=== PATIENT | female | born 1985 | race Caucasian/White ===

== ENCOUNTER 2016-05-01 13:13 | Emergency (ER) | payer BC ==
--- NOTE | 2016-05-01 13:42 | EDM.PDOC ---
ED HPI GENERAL MEDICAL PROBLEM - General Chief Complaint: General Stated Complaint: DIZZY Time Seen by Provider: 05/01/16 13:36 Source of Information: Reports: Patient History Limitations: Reports: No limitations - History of Present Illness INITIAL COMMENTS - FREE TEXT/NARRATIVE: HISTORY AND PHYSICAL: [31-year-old female with dizziness] History of Present Illness: [Patient has history of benign positional vertigo and this does feel the same as what she said in the past she cannot remember the name of the medication that she had taken.] Review of Systems: As per history of present illness and below otherwise all systems reviewed and negative. Past medical history: As per history of present illness and as reviewed below otherwise noncontributory. Surgical history: As per history of present illness and as reviewed below otherwise noncontributory. Social history: No reported history of drug or alcohol abuse. Family history: As per history of present illness and as reviewed below otherwise noncontributory. Physical exam: Alert pleasant woman not wanting to turn her head. When asked to turn her head dizziness did increase/nausea with dizziness present HEENT: Atraumatic, normocehpalic, pupils reactive, negative for conjunctival pallor or scleral icterus, mucous membranes moist, throat clear, neck supple, nontender, trachea midline. Lungs: Clear to auscultation, breath sounds equal bilaterally, chest non tender. Heart: S1S2, regular, negative for clicks, rubs, or JVD. Extremities: Atraumatic, negative for cords or calf pain. Neurovascular unremarkable. Neuro: Awake, alert, oriented. Cranial nerves II through XII unremarkable. Cerebellum unremarkable. Motor and sensory unremarkable throughout. Exam nonfocal. Diagnostics: [] Therapeutics: [] Impression: [vertigo labrithitis] Plan: [Home Meclizine] Definitive disposition and diagnosis as appropriate pending reevaluation and review of above. Onset: gradual Duration: Day(s): Location: Reports: head Quality: Reports: Same as previous episode Severity: moderate Improves with: Reports: None Worsens with: Reports: None Associated Symptoms: Reports: no other symptoms head Pain Score (Numeric/FACES): 6 - Related Data Allergies Allergy/AdvReac Type Severity Reaction Status Date / Time cephalexin monohydrate Allergy Rash Verified 05/01/16 13:24 [From Keflex] Milk Containing Products Allergy Diarrhea Verified 05/01/16 13:24 Penicillins Allergy Diarrhea Verified 05/01/16 13:24 sulfamethoxazole Allergy Rash Verified 05/01/16 13:24 [From Bactrim] trimethoprim [From Bactrim] Allergy Rash Verified 05/01/16 13:24 Home Meds: Home Meds metFORMIN [metFORMIN XR] 500 mg PO BIDM 05/21/13 [History] Ramipril 5 mg PO DAILY 06/07/14 [History] B Complex With Vitamin C [Super B Complex-Vitamin C] 1 each PO DAILY 02/09/15 [ History] DULoxetine HCl [Cymbalta] 30 mg PO DAILY 02/09/15 [History] Niacin 500 mg PO DAILY 02/09/15 [History] LORazepam 0.5 mg PO BEDTIME 06/28/15 [History] Tamsulosin [Flomax] 0.4 mg PO BEDTIME 06/28/15 [History] Meclizine [Antivert] 25 mg PO TID #90 tablet 05/01/16 [Rx] Phentermine HCl 15 mg PO DAILY 05/01/16 [History] Past Medical History HEENT History: Reports: None Cardiovascular History: Reports: Hypertension Respiratory History: Reports: None Gastrointestinal History: Reports: None Genitourinary History: Reports: Other (see below) Other Genitourinary History: ovarian cysts 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 History: Reports: Fracture Neurological History: Reports: None Psychiatric History: Reports: Anxiety, Depression Endocrine/Metabolic History: Reports: Diabetes, type II Hematologic History: Reports: None Immunologic History: Reports: None Oncologic (Cancer) History: Reports: None Dermatologic History: Reports: None - Infectious Disease History Infectious Disease History: Reports: Chicken pox Other Infectious Disease History: childhood - Past Surgical History Head Surgeries/Procedures: Reports: None HEENT Surgical History: Reports: Tonsillectomy GI Surgical History: Reports: Cholecystectomy, Hernia repair/other Female Surgical History: Reports: D&C 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 Surgical History: Reports: Other (see below) Other 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 Surgeries/Procedures:: Right meniscus repair Social & Family History - Family History Family Medical History: Noncontributory Cardiac: Reports: CAD - Tobacco Use Smoking Status *Q: Never Smoker Second Hand Smoke Exposure: No - Alcohol Use Days Per Week of Alcohol Use: 0 - Recreational Drug Use Recreational Drug Use: No Drug Use in Last 12 Months: No ED ROS GENERAL - Review of Systems Review Of Systems: ROS reveals no pertinent complaints other than HPI. ED EXAM, GENERAL - Physical Exam Exam: See Below (see dictation) Course - Vital Signs Last Recorded V/S: Last Vital Signs Temp 37.1 C 05/01/16 13:29 Pulse 84 05/01/16 13:29 Resp 16 05/01/16 13:29 BP 132/81 05/01/16 13:29 Pulse Ox 94 L 05/01/16 13:29 Departure - Departure Time of Disposition: 13:41 Disposition: Home, Self-Care 01 Condition: good Clinical Impression: Dizziness Prescriptions: Meclizine [Antivert] 25 mg PO TID #90 tablet Forms: ED Department Discharge Additional Instructions: The following information is given to patients seen in the emergency department who are being discharged to home. This information is to outline your options for follow-up care. We provide all patients seen in our emergency department with a follow-up referral. The need for follow-up, as well as the timing and circumstances, are variable depending upon the specifics of your emergency department visit. If you don't have a primary care physician on staff, we will provide you with a referral. We always advise you to contact your personal physician following an emergency department visit to inform them of the circumstance of the visit and for follow-up with them and/or the need for any referrals to a consulting specialist. The emergency department will also refer you to a specialist when appropriate. This referral assures that you have the opportunity for followup care with a specialist. All of these measure are taken in an effort to provide you with optimal care, which includes your followup. Under all circumstances we always encourage you to contact your private physician who remains a resource for coordinating your care. When calling for followup care, please make the office aware that this follow-up is from your recent emergency room visit. If for any reason you are refused follow-up, please contact the [facility] emergency department at and asked to speak to the emergency department charge nurse. Followup with your primary care provider next week
[2016-05-01 13:54] VITALS: BP 132/81
== END 2016-05-01 13:48 | disposition home or self-care (01) ==
LOC: MW.ED 13:13
DX: R42 Dizziness and giddiness (principal); H83.09 Labyrinthitis, unspecified ear; I10 Essential (primary) hypertension; F41.9 Anxiety disorder, unspecified; F32.9 Major depressive disorder, single episode, unspecified; E11.9 Type 2 diabetes mellitus without complications; Z79.84 Long term (current) use of oral hypoglycemic drugs; Z79.899 Other long term (current) drug therapy; Z98.890 Other specified postprocedural states; Z90.49 Acquired absence of other specified parts of digestive tract; Z88.1 Allergy status to other antibiotic agents; Z88.0 Allergy status to penicillin; Z91.011 Allergy to milk products
CPT/HCPCS: 99283

== ENCOUNTER 2016-05-05 16:05 | Emergency (ER) | payer BC ==
--- NOTE | 2016-05-05 16:50 | EDM.PDOC ---
[id number] Complaint: General Stated Complaint: CHEST RAISING Time Seen by Provider: 05/05/16 18:44 Source of Information: Reports: Patient History Limitations: Reports: No limitations (A a) - History of Present Illness INITIAL COMMENTS - FREE TEXT/NARRATIVE: HISTORY AND PHYSICAL: [31-year-old female presenting with heart palpitations. She's been taking phentermine by prescription for weight loss. She's been on this medication for several days and today was the second day that she's had these occur.] History of Present Illness: [There is no chest pain] Review of Systems: As per history of present illness and below otherwise all systems reviewed and negative. Past medical history: As per history of present illness and as reviewed below otherwise noncontributory. Surgical history: As per history of present illness and as reviewed below otherwise noncontributory. Social history: No reported history of drug or alcohol abuse. Family history: As per history of present illness and as reviewed below otherwise noncontributory. Physical exam: Alert and oriented female face is quite flushed. EKG is normal sinus rhythm. Tachycardic HEENT: Atraumatic, normocehpalic, pupils reactive, negative for conjunctival pallor or scleral icterus, mucous membranes moist, throat clear, neck supple, nontender, trachea midline. Lungs: Clear to auscultation, breath sounds equal bilaterally, chest non tender. Heart: S1S2, regular, negative for clicks, rubs, or JVD. Abdomen: Soft, nondistended, nontender. Negative for masses or hepatossplenmegaly. Negative for costovertebral tenderness. Pelvis: Stable nontender. Genitourinary: Deferred. Rectal: Deferred Extremities: Atraumatic, negative for cords or calf pain. Neurovascular unremarkable. Neuro: Awake, alert, oriented. Cranial nerves II through XII unremarkable. Cerebellum unremarkable. Motor and sensory unremarkable throughout. Exam nonfocal. Diagnostics: [CBCs] Therapeutics: Xanax po[] Impression: [Heart palpitations Plan: [. Her weight loss medication have discussed with her orlistat may be the only medicine she can take that is available [id number]. Note is been written for her to be off work for the next 24 hours Instructions followup with her primary care provider Symptoms worsen overnight she needs to return immediately for reevaluation in the emergency room] Definitive disposition and diagnosis as appropriate pending reevaluation and review of above. Onset: today, sudden Duration: Hour(s): Location: Reports: chest Quality: Reports: Other Severity: mild Improves with: Reports: None Worsens with: Reports: None Associated Symptoms: Reports: no other symptoms Bilateral Chest Pain Score (Numeric/FACES): 6 - Related Data Allergies Allergy/AdvReac Type Severity Reaction Status Date / Time cephalexin monohydrate Allergy Rash Verified 05/01/16 13:24 [From Keflex] Milk Containing Products Allergy Diarrhea Verified 05/01/16 13:24 Penicillins Allergy Diarrhea Verified 05/01/16 13:24 sulfamethoxazole Allergy Rash Verified 05/01/16 13:24 [From Bactrim] trimethoprim [From Bactrim] Allergy Rash Verified 05/01/16 13:24 Home Meds: Home Meds metFORMIN [metFORMIN XR] 500 mg PO BIDM 05/21/13 [History] Ramipril 5 mg PO DAILY 06/07/14 [History] B Complex With Vitamin C [Super B Complex-Vitamin C] 1 each PO DAILY 02/09/15 [ History] DULoxetine HCl [Cymbalta] 30 mg PO DAILY 02/09/15 [History] Niacin 500 mg PO DAILY 02/09/15 [History] LORazepam 0.5 mg PO BEDTIME 06/28/15 [History] Tamsulosin [Flomax] 0.4 mg PO BEDTIME 06/28/15 [History] Meclizine [Antivert] 25 mg PO TID #90 tablet 05/01/16 [Rx] Phentermine HCl 15 mg PO DAILY 05/01/16 [History] ED ROS GENERAL - Review of Systems Review Of Systems: ROS reveals no pertinent complaints other than HPI. ED EXAM, GENERAL - Physical Exam Exam: See Below (See dictation) Course - Vital Signs Last Recorded V/S: Last Vital Signs Temp 36.7 C 05/05/16 19:46 Pulse 84 05/05/16 19:46 Resp 16 05/05/16 19:46 BP 132/73 05/05/16 19:46 Pulse Ox 96 05/05/16 19:46 - Orders/Labs/Meds Labs: Laboratory Tests 05/05/16 05/05/16 05/05/16 Range/Units 18:49 18:49 18:49 WBC 12.34 H (4.0-11.0) K/uL RBC 4.37 (4.30-5.90) M/uL Hgb 13.5 (12.0-16.0) g/dL Hct 41.2 (36.0-46.0) % MCV 94.3 (80.0-98.0) fL MCH 30.9 (27.0-32.0) pg MCHC 32.8 (31.0-37.0) g/dL RDW Std Deviation 44.6 (28.0-62.0) fl RDW Coeff of Tanmay 13 (11.0-15.0) % Plt Count 345 (150-400) K/uL MPV 9.20 (7.40-12.00) fL Neut % (Auto) 57.3 (48.0-80.0) % Lymph % (Auto) 34.1 (16.0-40.0) % [place] % (Auto) 6.8 (0.0-15.0) % Eos % (Auto) 1.6 (0.0-7.0) % Baso % (Auto) 0.2 (0.0-1.5) % Neut # 7.1 H (1.4-5.7) K/uL Lymph # 4.2 H (0.6-2.4) K/uL [place] # 0.8 (0.0-0.8) K/uL Eos # 0.2 (0.0-0.7) K/uL Baso # 0.0 (0.0-0.1) K/uL Nucleated RBC % 0.0 /100WBC Nucleated RBCs # 0 K/uL Sodium 140 (136-146) mmol/L Potassium 4.4 (3.5-5.1) mmol/L Chloride 104 (98-110) mmol/L Carbon Dioxide 25 (21-31) mmol/L BUN 10 (6.0-23.0) mg/dL Creatinine 0.9 (0.6-1.5) mg/dL Est Cr Clr Drug Dosing 76.77 mL/min Estimated GFR (MDRD) > 60.0 ml/min Glucose 121 H (60-110) mg/dL Calcium 9.3 (8.8-10.8) mg/dL Troponin I < 0.10 (0.0-0.29) NG/ML Meds: Medications Discontinued Medications Generic Name Dose Route Start Last Admin Trade Name Zachariahq PRN Reason Stop Dose Admin Alprazolam 0.5 mg 05/05/16 19:00 05/05/16 19:16 Xanax PO 05/05/16 19:01 Not Given ONETIME ONE Alprazolam 0.5 mg 05/05/16 19:10 05/05/16 19:21 Xanax PO 05/05/16 19:11 Not Given NOW STA Alprazolam 0.5 mg 05/05/16 19:20 05/05/16 19:20 Xanax PO 05/05/16 19:21 0.5 mg NOW ONE Administration Alprazolam Confirm 05/05/16 19:19 Xanax Administered 05/05/16 19:20 Dose 0.5 mg .ROUTE .STK-MED ONE Departure - Departure Time of Disposition: 19:40 Disposition: Home, Self-Care 01 Condition: good Clinical Impression: Heart palpitations Instructions: Palpitations, [id number] Referrals: PCP,None [Primary Care Provider] - Forms: ED Department Discharge Additional Instructions: Patient is feeling much improved She will be discharged to home May takes some Benadryl The following information is given to patients seen in the emergency department who are being discharged to home. This information is to outline your options for follow-up care. We provide all patients seen in our emergency department with a follow-up referral. The need for follow-up, as well as the timing and circumstances, are variable depending upon the specifics of your emergency department visit. If you don't have a primary care physician on staff, we will provide you with a referral. We always advise you to contact your personal physician following an emergency department visit to inform them of the circumstance of the visit and for follow-up with them and/or the need for any referrals to a consulting specialist. The emergency department will also refer you to a specialist when appropriate. This referral assures that you have the opportunity for followup care with a specialist. All of these measure are taken in an effort to provide you with optimal care, which includes your followup. Under all circumstances we always encourage you to contact your private physician who remains a resource for coordinating your care. When calling for followup care, please make the office aware that this follow-up is from your recent emergency room visit. If for any reason you are refused follow-up, please contact the [facility] emergency department at and asked to speak to the emergency department charge nurse. 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 History: Reports: Fracture Neurological History: Reports: None Psychiatric History: Reports: Anxiety, Depression Endocrine/Metabolic History: Reports: Diabetes, type II Hematologic History: Reports: None Immunologic History: Reports: None Oncologic (Cancer) History: Reports: None Dermatologic History: Reports: None - Infectious Disease History Infectious Disease History: Reports: Chicken pox Other Infectious Disease History: childhood - Past Surgical History Head Surgeries/Procedures: Reports: None HEENT Surgical History: Reports: Tonsillectomy GI Surgical History: Reports: Cholecystectomy, Hernia repair/other Female Surgical History: Reports: D&C 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 Surgical History: Reports: Other (see below) Other 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 Surgeries/Procedures:: Right meniscus repair Social & Family History - Family History Family Medical History: Noncontributory Cardiac: Reports: CAD - Tobacco Use Smoking Status *Q: Never Smoker Second Hand Smoke Exposure: No - Caffeine Use Caffeine Use: Reports: Coffee - Alcohol Use Days Per Week of Alcohol Use: 0 - Recreational Drug Use Recreational Drug Use: No Drug Use in Last 12 Months: No ED ROS GENERAL - Review of Systems Review Of Systems: See Below (Per history of present illness) ED EXAM, GENERAL - Physical Exam Exam: See Below (Per history of present illness) Course - Vital Signs Last Recorded V/S: Last Vital Signs Temp 36.7 C 05/05/16 19:46 Pulse 84 05/05/16 19:46 Resp 16 05/05/16 19:46 BP 132/73 05/05/16 19:46 Pulse Ox 96 05/05/16 19:46 - Orders/Labs/Meds Labs: Laboratory Tests 03/16/17 03/16/17 03/16/17 Range/Units 18:49 18:49 18:49 WBC 12.34 H (4.0-11.0) K/uL RBC 4.37 (4.30-5.90) M/uL Hgb 13.5 (12.0-16.0) g/dL Hct 41.2 (36.0-46.0) % MCV 94.3 (80.0-98.0) fL MCH 30.9 (27.0-32.0) pg MCHC 32.8 (31.0-37.0) g/dL RDW Std Deviation 44.6 (28.0-62.0) fl RDW Coeff of Tanmay 13 (11.0-15.0) % Plt Count 345 (150-400) K/uL MPV 9.20 (7.40-12.00) fL Neut % (Auto) 57.3 (48.0-80.0) % Lymph % (Auto) 34.1 (16.0-40.0) % [place] % (Auto) 6.8 (0.0-15.0) % Eos % (Auto) 1.6 (0.0-7.0) % Baso % (Auto) 0.2 (0.0-1.5) % Neut # 7.1 H (1.4-5.7) K/uL Lymph # 4.2 H (0.6-2.4) K/uL [place] # 0.8 (0.0-0.8) K/uL Eos # 0.2 (0.0-0.7) K/uL Baso # 0.0 (0.0-0.1) K/uL Nucleated RBC % 0.0 /100WBC Nucleated RBCs # 0 K/uL Sodium 140 (136-146) mmol/L Potassium 4.4 (3.5-5.1) mmol/L Chloride 104 (98-110) mmol/L Carbon Dioxide 25 (21-31) mmol/L BUN 10 (6.0-23.0) mg/dL Creatinine 0.9 (0.6-1.5) mg/dL Est Cr Clr Drug Dosing 76.77 mL/min Estimated GFR (MDRD) > 60.0 ml/min Glucose 121 H (60-110) mg/dL Calcium 9.3 (8.8-10.8) mg/dL Troponin I < 0.10 (0.0-0.29) NG/ML Meds: Medications Discontinued Medications Generic Name Dose Route Start Last Admin Trade Name Iza PRN Reason Stop Dose Admin Alprazolam 0.5 mg 05/05/16 19:00 05/05/16 19:16 Xanax PO 05/05/16 19:01 Not Given ONETIME ONE Alprazolam 0.5 mg 05/05/16 19:10 05/05/16 19:21 Xanax PO 05/05/16 19:11 Not Given NOW STA Alprazolam 0.5 mg 05/05/16 19:20 05/05/16 19:20 Xanax PO 05/05/16 19:21 0.5 mg NOW ONE Administration Alprazolam Confirm 05/05/16 19:19 Xanax Administered 05/05/16 19:20 Dose 0.5 mg .ROUTE .STK-MED ONE
[2016-05-05] MEDS: ALPRAZolam 0.25 MG Tab PO ONE (19:16)
[2016-05-05] MEDS ORDERED: ALPRAZolam 0.5 MG Tab ONE (19:19)
[2016-05-05] MEDS: ALPRAZolam 0.5 MG Tab PO ONE (19:20)
[2016-05-05] MEDS: ALPRAZolam 0.25 MG Tab PO STA (19:21)
[2016-05-05 19:25] LABS: CHLORIDE,CL 104 mmol/L (98-110); SODIUM,NA 140 mmol/L (136-146)
[2016-05-05 19:52] VITALS: BP 132/73
== END 2016-05-05 19:46 | disposition home or self-care (01) ==
LOC: MW.ED 16:05
DX: R00.2 Palpitations (principal); I10 Essential (primary) hypertension; E11.9 Type 2 diabetes mellitus without complications; Z88.6 Allergy status to analgesic agent; Z88.2 Allergy status to sulfonamides; Z88.8 Allergy status to other drugs, medicaments and biological substances; Z91.011 Allergy to milk products; Z79.899 Other long term (current) drug therapy; Z90.89 Acquired absence of other organs; Z98.890 Other specified postprocedural states
CPT/HCPCS: 36415; 80048; 84484; 85025; 93005; 99285; A9270; 99283

== ENCOUNTER → 2016-06-09 | Outpatient (CLI) | payer BC ==
--- NOTE | 2016-06-10 11:05 | CR ---
EXAMINATION: Right ankle HISTORY: Pain COMPARISON: 03/27/2016 TECHNIQUE: 2 views FINDINGS/IMPRESSION: There is no acute osseous abnormality, dislocation, or fracture identified. Deg enerative changes are noted within the tibiotalar joint and a small plantar calcaneal spur is noted. There is a well-corticated ossific density noted distal to the lateral malleolus, likely secondary to an old injury.
== END ==
LOC: MW.CHORTHO 07:51
PROVIDERS: ATTEND Physician Assistant
DX: M25.571 Pain in right ankle and joints of right foot (principal); M77.31 Calcaneal spur, right foot
CPT/HCPCS: 73600-26-RT; 73600-RT

== ENCOUNTER 2016-09-11 08:38 | Emergency (ER) | payer BC ==
--- NOTE | 2016-09-11 09:17 | EDM.PDOC ---
ED HPI GENERAL MEDICAL PROBLEM - General Chief Complaint: Abdominal Pain Stated Complaint: LOWER ABDOMINAL PAIN Time Seen by Provider: 09/11/16 09:10 Source of Information: Reports: Patient History Limitations: Reports: No Limitations - History of Present Illness INITIAL COMMENTS - FREE TEXT/NARRATIVE: History of present illness: []Patient presents with about 2 weeks of right pelvic and suprapubic pain. Patient denies any fevers but felt cold last night. No nausea, vomiting or diarrhea. Patient has a history of ovarian cysts, kidney stones and has had her gallbladder removed. Patient's wedding anniversary was 2 weeks ago and the pain began shortly after that. Review of systems: As per history of present illness and below otherwise all systems reviewed and negative. Past medical history: As per history of present illness and as reviewed below otherwise noncontributory. Surgical history: As per history of present illness and as reviewed below otherwise noncontributory. Social history: No reported history of drug or alcohol abuse. Family history: As per history of present illness and as reviewed below otherwise noncontributory. Physical exam: General: Well developed, well nourished in NAD HEENT: Atraumatic, normocephalic, pupils reactive, negative for conjunctival pallor or scleral icterus, mucous membranes moist, throat clear, neck supple, nontender, trachea midline. Lungs: Clear to auscultation, breath sounds equal bilaterally, chest nontender. Heart: S1S2, regular, negative for clicks, rubs, or JVD. Abdomen: Soft, nondistended, nontender. Negative for masses or hepatosplenomegaly. Negative for costovertebral tenderness. Pelvis: Stable nontender. Genitourinary: Pelvic exam shows copious amount of thick discharge, cervical motion tenderness is marked on exam blood patient is obese and is difficult to palpate any masses Rectal: Deferred. Extremities: Atraumatic, negative for cords or calf pain. Neurovascular unremarkable. Neuro: Awake, alert, oriented. Cranial nerves II through XII unremarkable. Cerebellum unremarkable. Motor and sensory unremarkable throughout. Exam nonfocal. Diagnostics: []Labs and urine done are negative Therapeutics: []Ceftriaxone, Zithromax, hydrated and pain meds given Impression: []PID Plan: []Follow-up with NEUROPSYCHOLOGY DIRECTOR this week Definitive disposition and diagnosis as appropriate pending reevaluation and review of above. RLQ Pain Score (Numeric/FACES): 10 - Related Data Allergies Allergy/AdvReac Type Severity Reaction Status Date / Time cephalexin monohydrate Allergy Rash Verified 09/11/16 08:51 [From Keflex] Milk Containing Products Allergy Diarrhea Verified 09/11/16 08:51 Penicillins Allergy Diarrhea Verified 09/11/16 08:51 sulfamethoxazole Allergy Rash Verified 09/11/16 08:51 [From Bactrim] trimethoprim [From Bactrim] Allergy Rash Verified 09/11/16 08:51 Home Meds: Home Meds metFORMIN [metFORMIN XR] 1,000 mg PO DAILY 05/21/13 [History] Ramipril 5 mg PO DAILY 06/07/14 [History] B Complex With Vitamin C [Super B Complex-Vitamin C] 1 each PO DAILY 02/09/15 [ History] DULoxetine HCl [Cymbalta] 30 mg PO DAILY 02/09/15 [History] LORazepam 0.5 mg PO BEDTIME 06/28/15 [History] Meclizine [Antivert] 25 mg PO TID PRN 09/11/16 [History] Past Medical History HEENT History: Reports: None Cardiovascular History: Reports: Hypertension Respiratory History: Reports: None Gastrointestinal History: Reports: None Genitourinary History: Reports: Other (See Below) Other Genitourinary History: ovarian cysts NEUROPSYCHOLOGY DIRECTOR History: Reports: None 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 History: Reports: Fracture Neurological History: Reports: None Psychiatric History: Reports: Anxiety, Depression Endocrine/Metabolic History: Reports: Diabetes, Type II Hematologic History: Reports: None Immunologic History: Reports: None Oncologic (Cancer) History: Reports: None Dermatologic History: Reports: None - Infectious Disease History Infectious Disease History: Reports: Chicken Pox Other Infectious Disease History: childhood - Past Surgical History Head Surgeries/Procedures: Reports: None HEENT Surgical History: Reports: Tonsillectomy GI Surgical History: Reports: Cholecystectomy, Hernia Repair/Other 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 Surgical History: Reports: Other (See Below) Social & Family History - Family History Family Medical History: Noncontributory Cardiac: Reports: CAD - Tobacco Use Smoking Status *Q: Never Smoker Second Hand Smoke Exposure: No - Caffeine Use Caffeine Use: Reports: Coffee - Alcohol Use Days Per Week of Alcohol Use: 0 - Recreational Drug Use Recreational Drug Use: No Drug Use in Last 12 Months: No ED ROS GENERAL - Review of Systems Review Of Systems: See Below (See history of present illness) ED EXAM, RENAL/ - Physical Exam Exam: See Below (See history of present illness) Course - Vital Signs Last Recorded V/S: Last Vital Signs Temp 36.8 C 09/11/16 08:39 Pulse 86 09/11/16 10:44 Resp 16 09/11/16 10:44 BP 148/74 H 09/11/16 10:44 Pulse Ox 96 09/11/16 10:44 - Orders/Labs/Meds Orders: Active Orders 24 hr Category Date Time Status Sodium Chloride 0.9% [Saline Flush] Med 09/11/16 10:30 Active 10 ml FLUSH ASDIRECTED PRN Sodium Chloride 0.9% [Saline Flush] Med 09/11/16 10:30 Active 2.5 ml FLUSH ASDIRECTED PRN cefTRIAXone [Rocephin] 500 mg Med 09/11/16 11:36 Ordered Sodium Chloride 0.9% [Normal Saline] 50 ml IV ONETIME Saline Lock Insert [OM.PC] Stat Oth 09/11/16 10:30 Ordered Medication Orders Ceftriaxone Sodium 500 mg/ (Sodium Chloride) 50 mls @ 100 mls/hr IV ONETIME ONE Stop: 09/11/16 12:05 Sodium Chloride (Saline Flush) 10 ml FLUSH ASDIRECTED PRN PRN Reason: Keep Vein Open Last Admin: 09/11/16 11:07 Dose: 10 ml Sodium Chloride (Saline Flush) 2.5 ml FLUSH ASDIRECTED PRN PRN Reason: Keep Vein Open Last Admin: 09/11/16 11:07 Dose: 2.5 ml Labs: Laboratory Tests 09/11/16 09/11/16 09/11/16 Range/Units 08:45 08:45 11:00 WBC 10.83 (4.0-11.0) K/uL RBC 4.40 (4.30-5.90) M/uL Hgb 14.0 (12.0-16.0) g/dL Hct 42.5 (36.0-46.0) % MCV 96.6 (80.0-98.0) fL MCH 31.8 (27.0-32.0) pg MCHC 32.9 (31.0-37.0) g/dL RDW Std Deviation 45.5 (28.0-62.0) fl RDW Coeff of Tanmay 13 (11.0-15.0) % Plt Count 351 (150-400) K/uL MPV 9.20 (7.40-12.00) fL Neut % (Auto) 61.9 (48.0-80.0) % Lymph % (Auto) 31.0 (16.0-40.0) % Porter % (Auto) 5.2 (0.0-15.0) % Eos % (Auto) 1.6 (0.0-7.0) % Baso % (Auto) 0.3 (0.0-1.5) % Neut # (Auto) 6.7 H (1.4-5.7) K/uL Lymph # (Auto) 3.4 H (0.6-2.4) K/uL Porter # (Auto) 0.6 (0.0-0.8) K/uL Eos # (Auto) 0.2 (0.0-0.7) K/uL Baso # (Auto) 0.0 (0.0-0.1) K/uL Nucleated RBC % 0.0 /100WBC Nucleated RBCs # 0 K/uL Sodium (136-146) mmol/L Potassium (3.5-5.1) mmol/L Chloride (98-110) mmol/L Carbon Dioxide (21-31) mmol/L BUN (6.0-23.0) mg/dL Creatinine (0.6-1.5) mg/dL Est Cr Clr Drug Dosing mL/min Estimated GFR (MDRD) ml/min Glucose (60-110) mg/dL Calcium (8.8-10.8) mg/dL Total Bilirubin (0.1-1.5) mg/dL AST (5-40) IU/L ALT (8-54) IU/L Alkaline Phosphatase (40-150) Total Protein (6.0-8.0) g/dL Albumin (3.5-5.0) g/dL Globulin (2.0-3.5) g/dL Albumin/Globulin Ratio (1.3-2.8) Lipase (7-80) U/L Urine Color YELLOW Urine Appearance CLEAR Urine pH 7.0 (5.0-8.0) Ur Specific Milroy 1.010 (1.001-1.035) Urine Protein NEGATIVE (NEGATIVE) mg/dL Urine Glucose (UA) NEGATIVE (NEGATIVE) mg/dL Urine Ketones NEGATIVE (NEGATIVE) mg/dL Urine Occult Blood NEGATIVE (NEGATIVE) Urine Nitrite NEGATIVE (NEGATIVE) Urine Bilirubin NEGATIVE (NEGATIVE) Urine Urobilinogen 0.2 (<2.0) EU/dL Ur Leukocyte Esterase NEGATIVE (NEGATIVE) Urine RBC NONE SEEN (0-2/HPF) Urine WBC NONE SEEN (0-5/HPF) Ur Squamous Epith Cells MANY Urine Bacteria FEW (NEGATIVE) Urine HCG, Qual NEGATIVE (NEGATIVE) 09/11/16 Range/Units 11:00 WBC (4.0-11.0) K/uL RBC (4.30-5.90) M/uL Hgb (12.0-16.0) g/dL Hct (36.0-46.0) % MCV (80.0-98.0) fL MCH (27.0-32.0) pg MCHC (31.0-37.0) g/dL RDW Std Deviation (28.0-62.0) fl RDW Coeff of Tanmay (11.0-15.0) % Plt Count (150-400) K/uL MPV (7.40-12.00) fL Neut % (Auto) (48.0-80.0) % Lymph % (Auto) (16.0-40.0) % Porter % (Auto) (0.0-15.0) % Eos % (Auto) (0.0-7.0) % Baso % (Auto) (0.0-1.5) % Neut # (Auto) (1.4-5.7) K/uL Lymph # (Auto) (0.6-2.4) K/uL Porter # (Auto) (0.0-0.8) K/uL Eos # (Auto) (0.0-0.7) K/uL Baso # (Auto) (0.0-0.1) K/uL Nucleated RBC % /100WBC Nucleated RBCs # K/uL Sodium 140 (136-146) mmol/L Potassium 4.0 (3.5-5.1) mmol/L Chloride 106 (98-110) mmol/L Carbon Dioxide 24 (21-31) mmol/L BUN 8 (6.0-23.0) mg/dL Creatinine 0.9 (0.6-1.5) mg/dL Est Cr Clr Drug Dosing 63.86 mL/min Estimated GFR (MDRD) > 60.0 ml/min Glucose 122 H (60-110) mg/dL Calcium 9.6 (8.8-10.8) mg/dL Total Bilirubin 0.6 (0.1-1.5) mg/dL AST 15 (5-40) IU/L ALT 14 (8-54) IU/L Alkaline Phosphatase 59 (40-150) Total Protein 7.9 (6.0-8.0) g/dL Albumin 4.1 (3.5-5.0) g/dL Globulin 3.8 H (2.0-3.5) g/dL Albumin/Globulin Ratio 1.1 L (1.3-2.8) Lipase 26 (7-80) U/L Urine Color Urine Appearance Urine pH (5.0-8.0) Ur Specific Mil[place] (1.001-1.035) Urine Protein (NEGATIVE) mg/dL Urine Glucose (UA) (NEGATIVE) mg/dL Urine Ketones (NEGATIVE) mg/dL Urine Occult Blood (NEGATIVE) Urine Nitrite (NEGATIVE) Urine Bilirubin (NEGATIVE) Urine Urobilinogen (<2.0) EU/dL Ur Leukocyte Esterase (NEGATIVE) Urine RBC (0-2/HPF) Urine WBC (0-5/HPF) Ur Squamous Epith Cells Urine Bacteria (NEGATIVE) Urine HCG, Qual (NEGATIVE) Meds: Medications Generic Name Dose Route Start Last Admin Trade Name Freq PRN Reason Stop Dose Admin Ceftriaxone Sodium 500 mg/ 50 mls @ 100 mls/hr 09/11/16 11:36 Sodium Chloride IV 09/11/16 12:05 ONETIME ONE Sodium Chloride 10 ml 09/11/16 10:30 09/11/16 11:07 Saline Flush FLUSH 10 ml ASDIRECTED PRN Administration Keep Vein Open Sodium Chloride 2.5 ml 09/11/16 10:30 09/11/16 11:07 Saline Flush FLUSH 2.5 ml ASDIRECTED PRN Administration Keep Vein Open Discontinued Medications Generic Name Dose Route Start Last Admin Trade Name Freq PRN Reason Stop Dose Admin Azithromycin 1,000 mg 09/11/16 11:36 Zithromax PO 09/11/16 11:37 ONETIME ONE Sodium Chloride 1,000 mls @ 999 mls/hr 09/11/16 10:30 09/11/16 11:06 Normal Saline IV 09/11/16 11:30 999 mls/hr .Bolus ONE Administration Ketorolac Tromethamine 30 mg 09/11/16 10:30 09/11/16 11:07 Toradol IVPUSH 09/11/16 10:31 30 mg ONETIME ONE Administration Departure - Departure Time of Disposition: 11:43 Disposition: Home, Self-Care 01 Condition: Good Clinical Impression: PID (acute pelvic inflammatory disease) - Discharge Information Forms: ED Department Discharge Additional Instructions: The following information is given to patients seen in the emergency department who are being discharged to home. This information is to outline your options for follow-up care. We provide all patients seen in our emergency department with a follow-up referral. The need for follow-up, as well as the timing and circumstances, are variable depending upon the specifics of your emergency department visit. If you don't have a primary care physician on staff, we will provide you with a referral. We always advise you to contact your personal physician following an emergency department visit to inform them of the circumstance of the visit and for follow-up with them and/or the need for any referrals to a consulting specialist. The emergency department will also refer you to a specialist when appropriate. This referral assures that you have the opportunity for follow-up care with a specialist. All of these measure are taken in an effort to provide you with optimal care, which includes your follow-up. Under all circumstances we always encourage you to contact your private physician who remains a resource for coordinating your care. When calling for follow-up care, please make the office aware that this follow-up is from your recent emergency room visit. If for any reason you are refused follow-up, please contact the [facility] Emergency Department at and asked to speak to the emergency department charge nurse. Theodore for pain warm packs to abdomen follow-up with SIGNAL REPAIRER this week [facility] [address] [place] [id number] - My Orders Last 24 Hours: My Active Orders 09/11/16 10:30 Sodium Chloride 0.9% [Saline Flush] 10 ml FLUSH ASDIRECTED PRN Sodium Chloride 0.9% [Saline Flush] 2.5 ml FLUSH ASDIRECTED PRN Saline Lock Insert [OM.PC] Stat 09/11/16 11:36 cefTRIAXone [Rocephin] 500 mg Sodium Chloride 0.9% [Normal Saline] 50 ml IV ONETIME - Assessment/Plan Last 24 Hours: My Active Orders 09/11/16 10:30 Sodium Chloride 0.9% [Saline Flush] 10 ml FLUSH ASDIRECTED PRN Sodium Chloride 0.9% [Saline Flush] 2.5 ml FLUSH ASDIRECTED PRN Saline Lock Insert [OM.PC] Stat 09/11/16 11:36 cefTRIAXone [Rocephin] 500 mg Sodium Chloride 0.9% [Normal Saline] 50 ml IV ONETIME
[2016-09-11] MEDS ORDERED: Sodium Chloride 0.9% 2.5 ML Syringe FLUSH PRN (10:30)
[2016-09-11] MEDS ORDERED: Ketorolac 30 MG/ML SDV IVPUSH ONE (10:30)
[2016-09-11] MEDS ORDERED: Sodium Chloride 0.9% 1,000 ML IV ONE (10:30)
[2016-09-11] MEDS ORDERED: Sodium Chloride 0.9% 10 ML Syringe FLUSH PRN (10:30)
[2016-09-11 11:27] LABS: CHLORIDE,CL 106 mmol/L (98-110); SODIUM,NA 140 mmol/L (136-146)
[2016-09-11] MEDS ORDERED: cefTRIAXone 500 MG in Sodium Chloride 0.9% 50 ML IV ONE ×2 (11:36→12:03)
[2016-09-11] MEDS ORDERED: Azithromycin 250 MG Tab PO ONE (11:36)
[2016-09-11 13:03] VITALS: BP 117/78
== END 2016-09-11 13:00 | disposition home or self-care (01) ==
LOC: MW.ED 08:38
DX: N73.9 Female pelvic inflammatory disease, unspecified (principal); I10 Essential (primary) hypertension; E11.9 Type 2 diabetes mellitus without complications; Z98.890 Other specified postprocedural states; Z90.49 Acquired absence of other specified parts of digestive tract; Z88.0 Allergy status to penicillin; Z88.2 Allergy status to sulfonamides; Z88.8 Allergy status to other drugs, medicaments and biological substances; Z91.011 Allergy to milk products; Z88.1 Allergy status to other antibiotic agents; Z79.84 Long term (current) use of oral hypoglycemic drugs; Z79.899 Other long term (current) drug therapy; Z87.442 Personal history of urinary calculi
CPT/HCPCS: 80053; 81001; 81025; 83690; 85025; 87480; 87491; 87510; 87591; 87660; 96361; 96365; 96375; 99284; A9270; J0696; J1885; J7040; J7050

== ENCOUNTER 2016-09-12 13:50 | Emergency (ER) | payer BC ==
[2016-09-12] MEDS ORDERED: Ketorolac 30 MG/ML SDV IVPUSH ONE (14:19)
--- NOTE | 2016-09-12 14:22 | EDM.PDOC ---
ED HPI GENERAL MEDICAL PROBLEM - General Chief Complaint: Abdominal Pain Stated Complaint: LOWER ABDOMINAL PAIN Time Seen by Provider: 09/12/16 14:17 Source of Information: Reports: Patient, Family History Limitations: Reports: No Limitations - History of Present Illness INITIAL COMMENTS - FREE TEXT/NARRATIVE: HISTORY AND PHYSICAL: []31-year-old female presenting with right-sided abdominal pain History of Present Illness: []Patient had pain for the last 2 weeks was seen emergency room yesterday by Dr. Oconnor and treated for PID Review of Systems: As per history of present illness and below otherwise all systems reviewed and negative. Past medical history: As per history of present illness and as reviewed below otherwise noncontributory. Surgical history: As per history of present illness and as reviewed below otherwise noncontributory. Social history: No reported history of drug or alcohol abuse. Family history: As per history of present illness and as reviewed below otherwise noncontributory. Physical exam: Alert and oriented female does not look in acute distress skin is warm and dry. Cooperative answering questions appropriately. Speaking in full sentences HEENT: Atraumatic, normocehpalic, pupils reactive, negative for conjunctival pallor or scleral icterus, mucous membranes moist, throat clear, neck supple, nontender, trachea midline. Lungs: Clear to auscultation, breath sounds equal bilaterally, chest non tender. Heart: S1S2, regular, negative for clicks, rubs, or JVD. Abdomen: Soft, obese & rounded nondistended, nontender. Negative for masses or hepatossplenmegaly. Negative for costovertebral tenderness. Pelvis: Stable nontender. Genitourinary: Deferred. Rectal: Deferred Extremities: Atraumatic, negative for cords or calf pain. Neurovascular unremarkable. Neuro: Awake, alert, oriented. Cranial nerves II through XII unremarkable. Cerebellum unremarkable. Motor and sensory unremarkable throughout. Exam nonfocal. Diagnostics: [CBC] Therapeutics: [Toradol] Impression: [Abdominal pain, PID ] Plan: []Home hydrocodone/APAP Ceftin Definitive disposition and diagnosis as appropriate pending reevaluation and review of above. Onset: Gradual Duration: Week(s): Location: Reports: Abdomen abdomen Pain Score (Numeric/FACES): 10 - Related Data Allergies Allergy/AdvReac Type Severity Reaction Status Date / Time cephalexin monohydrate Allergy Rash Verified 09/12/16 14:12 [From Keflex] Milk Containing Products Allergy Diarrhea Verified 09/12/16 14:12 Penicillins Allergy Diarrhea Verified 09/12/16 14:12 sulfamethoxazole Allergy Rash Verified 09/12/16 14:12 [From Bactrim] trimethoprim [From Bactrim] Allergy Rash Verified 09/12/16 14:12 Home Meds: Home Meds metFORMIN [metFORMIN XR] 1,000 mg PO DAILY 05/21/13 [History] Ramipril 5 mg PO DAILY 06/07/14 [History] B Complex With Vitamin C [Super B Complex-Vitamin C] 1 each PO DAILY 02/09/15 [ History] DULoxetine HCl [Cymbalta] 30 mg PO DAILY 02/09/15 [History] LORazepam 0.5 mg PO BEDTIME 06/28/15 [History] Meclizine [Antivert] 25 mg PO TID PRN 09/11/16 [History] Cefuroxime [Ceftin] 500 mg PO BID #20 tablet 09/12/16 [Rx] Past Medical History HEENT History: Reports: None Cardiovascular History: Reports: Hypertension Respiratory History: Reports: None Gastrointestinal History: Reports: None Genitourinary History: Reports: Other (See Below) Other Genitourinary History: ovarian cysts [employer]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 History: Reports: Fracture Neurological History: Reports: None Psychiatric History: Reports: Anxiety, Depression Endocrine/Metabolic History: Reports: Diabetes, Type II Hematologic History: Reports: None Immunologic History: Reports: None Oncologic (Cancer) History: Reports: None Dermatologic History: Reports: None - Infectious Disease History Infectious Disease History: Reports: Chicken Pox Other Infectious Disease History: childhood - Past Surgical History Head Surgeries/Procedures: Reports: None HEENT Surgical History: Reports: Tonsillectomy GI Surgical History: Reports: Cholecystectomy, Hernia Repair/Other 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 Surgical History: Reports: Other (See Below) Social & Family History - Family History Family Medical History: Noncontributory Cardiac: Reports: CAD - Tobacco Use Smoking Status *Q: Never Smoker Second Hand Smoke Exposure: No - Caffeine Use Caffeine Use: Reports: Coffee - Alcohol Use Days Per Week of Alcohol Use: 0 - Recreational Drug Use Recreational Drug Use: No Drug Use in Last 12 Months: No ED ROS GENERAL - Review of Systems Review Of Systems: ROS reveals no pertinent complaints other than HPI. ED EXAM, GI/ABD - Physical Exam Exam: See Below (dictation) Course - Vital Signs Last Recorded V/S: Last Vital Signs Temp 36.7 C 09/12/16 14:14 Pulse 82 09/12/16 14:40 Resp 18 09/12/16 14:40 BP 152/99 H 09/12/16 14:40 Pulse Ox 94 L 09/12/16 14:40 - Orders/Labs/Meds Meds: Medications Discontinued Medications Generic Name Dose Route Start Last Admin Trade Name Iza PRN Reason Stop Dose Admin Iopamidol 100 ml 09/12/16 15:57 09/12/16 15:58 Isovue Multipack-370 (76%) IVPUSH 09/12/16 15:58 100 ml ONETIME STA Administration Ketorolac Tromethamine 30 mg 09/12/16 14:19 09/12/16 14:46 Toradol IVPUSH 09/12/16 14:20 30 mg ONETIME ONE Administration Departure - Departure Time of Disposition: 16:43 Disposition: Home, Self-Care 01 Condition: Good Clinical Impression: PID (acute pelvic inflammatory disease) Abdominal pain Qualifiers: Abdominal location: right lower quadrant Qualified Code(s): R10.31 - Right lower quadrant pain - Discharge Information Prescriptions: Cefuroxime [Ceftin] 500 mg PO BID #20 tablet Referrals: PCP,None [Primary Care Provider] - Forms: ED Department Discharge
[2016-09-12] MEDS ORDERED: Iopamidol 755 MG/ML 500 ML Multipack Bottle IVPUSH STA (15:57)
--- NOTE | 2016-09-12 16:10 | CT ---
CT of the abdomen and pelvis with contrast. HISTORY: Pain TECHNIQUE: Axial CT images were obtained of the abdomen and pelvis following administration of Isovu e-370 in the right hand without complication. Coronal and sagittal reconstructions obtained. FINDINGS: The lung bases are clear, no pleural effusion. Mild dependent atelectasis. The liver, spleen, adrenal glands, pancreas appear unremarkable. Cholecystectomy clips are noted. No bulky retroperitoneal lymphadenopathy or abdominal ascites. The kidneys enhance and function symmetrically without evidence of obstructive uropathy. The large and small bowel are normal in caliber without evidence of obstruction. No focal pericoloni c inflammation or stranding. Mild diverticulosis without evidence of diverticulitis. The appendix ap pears normal. Urinary bladder appears normal. No bulky pelvic lymphadenopathy or free pelvic fluid. Uterus and ovaries are grossly unremarkable. No suspicious osseous abnormalities. IMPRESSION: 1. No acute findings demonstrated within the abdomen or pelvis.
[2016-09-12 16:56] VITALS: BP 152/86
== END 2016-09-12 16:56 | disposition home or self-care (01) ==
LOC: MW.ED 13:50
DX: N73.9 Female pelvic inflammatory disease, unspecified (principal); I10 Essential (primary) hypertension; F41.9 Anxiety disorder, unspecified; E11.9 Type 2 diabetes mellitus without complications; F32.9 Major depressive disorder, single episode, unspecified; Z88.0 Allergy status to penicillin; Z88.2 Allergy status to sulfonamides; Z88.8 Allergy status to other drugs, medicaments and biological substances; Z79.84 Long term (current) use of oral hypoglycemic drugs; Z79.899 Other long term (current) drug therapy; Z90.49 Acquired absence of other specified parts of digestive tract; Z98.890 Other specified postprocedural states
CPT/HCPCS: 74177; 96374; 99284; J1885; Q9967

== ENCOUNTER 2018-07-07 13:40 | Emergency (ER) | payer BC ==
[2018-07-07 14:22] LABS: CHLORIDE,CL 107 mmol/L (98-107); SODIUM,NA 140 mmol/L (136-145)
[2018-07-07] MEDS ORDERED: Ketorolac 30 MG/ML SDV IVPUSH ONE (14:38)
[2018-07-07] MEDS ORDERED: Sodium Chloride 0.9% 1,000 ML IV ONE (14:38)
--- NOTE | 2018-07-07 15:13 | EDM.PDOC ---
ED HPI GENERAL MEDICAL PROBLEM - General Chief Complaint: Chest Pain Stated Complaint: CHEST PAIN Time Seen by Provider: 07/07/18 13:41 Source of Information: Reports: Patient History Limitations: Reports: No Limitations - History of Present Illness INITIAL COMMENTS - FREE TEXT/NARRATIVE: HISTORY AND PHYSICAL: History of present illness: Patient is a 33-year-old female presents to the ED today with concern of chest pain that she describes as sharp since this morning. Patient states when she woke up she had first noticed the pain and states that it is improved now that she is in the ED. Patient states the pain is worse when she presses on her chest. Patient states she has not taken anything for her symptoms. Patient denies any other symptoms at this time. Patient denies fever, chills,shortness of breath, or cough. Denies headache, neck stiff ness, change in vision, syncope, or near syncope. Denies nausea, vomiting, abdominal pain, diarrhea, constipation, or dysuria. Has not noted any blood in urine or stool. Patient has been eating and drinking appropriately. Patient has a history of diabetes, hypertension, and depression. Review of systems: As per history of present illness and below otherwise all systems reviewed and negative. Past medical history: As per history of present illness and as reviewed below otherwise noncontributory. Surgical history: As per history of present illness and as reviewed below otherwise noncontributory. Social history: See social history for further information Family history: As per history of present illness and as reviewed below otherwise noncontributory. Physical exam: General: Patient is alert, oriented, and in no acute distress. Patient sitting comfortably on exam table. HEENT: Atraumatic, normocephalic, pupils equal and reactive bilaterally, negative for conjunctival pallor or scleral icterus, mucous membranes moist, TMs normal bilaterally, throat clear, neck supple, nontender, trachea midline. No drooling or trismus noted. No meningeal signs. No hot potato voice noted. Lungs: Clear to auscultation, breath sounds equal bilaterally. Moderate pain palpation of the mid sternum. Heart: S1S2, regular rate and rhythm without overt murmur Abdomen: Soft, nondistended, nontender. Negative for masses or hepatosplenomegaly. Negative for costovertebral tenderness. Pelvis: Stable nontender. Genitourinary: Deferred. Rectal: Deferred. Skin: Intact, warm, dry. No lesions or rashes noted. Extremities: Atraumatic, negative for cords or calf pain. Neurovascular unremarkable. Neuro: Awake, alert, oriented. Cranial nerves II through XII unremarkable. Cerebellum unremarkable. Motor and sensory unremarkable throughout. Exam nonfocal. Notes: Dr. Lam verbally involved in patient care. Symptoms are reproducible on exam and have been ongoing since this morning. Remains in no acute distress. Not associated with any other symptoms. Patient expresses resolution of symptoms while in the ED. Voices understanding and is agreeable to plan of care. Denies any further questions or concerns at this time. Diagnostics: EKG, CBC, CMP, UA, urine hCG, lipase, troponin, chest x-ray, cardiac monitoring Therapeutics: Saline, Toradol Prescription: Diclofenac Impression: Chest wall pain History of diabetes Plan: 1. Take medication as prescribed. You can also use Tylenol as directed for pain and discomfort. 2. Follow-up with her primary care provider as discussed. 3. Return to the ED as needed and as discussed. Definitive disposition and diagnosis as appropriate pending reevaluation and review of above. chest Pain Score (Numeric/FACES): 10 - Related Data Allergies Allergy/AdvReac Type Severity Reaction Status Date / Time cephalexin monohydrate Allergy Rash Verified 07/07/18 13:45 [From Keflex] Milk Containing Products Allergy Diarrhea Verified 07/07/18 13:45 Penicillins Allergy Diarrhea Verified 07/07/18 13:45 sulfamethoxazole Allergy Rash Verified 07/07/18 13:45 [From Bactrim] trimethoprim [From Bactrim] Allergy Rash Verified 07/07/18 13:45 Home Meds: Home Meds metFORMIN [metFORMIN XR] 1,000 mg PO DAILY 05/21/13 [History] Ramipril 5 mg PO DAILY 06/07/14 [History] B-Complex with Vitamin C [Super B Complex-Vitamin C] 1 each PO DAILY 02/09/15 [ History] DULoxetine HCl [Cymbalta] 30 mg PO DAILY 02/09/15 [History] LORazepam 0.5 mg PO BEDTIME 06/28/15 [History] Meclizine [Antivert] 25 mg PO TID PRN 09/11/16 [History] Cefuroxime [Ceftin] 500 mg PO BID #20 tablet 09/12/16 [Rx] Past Medical History - Past Health History Medical/Surgical History: Denies Medical/Surgical History HEENT History: Reports: None Cardiovascular History: Reports: Hypertension Respiratory History: Reports: None Gastrointestinal History: Reports: None Genitourinary History: Reports: Other (See Below) Other Genitourinary History: ovarian cysts 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 History: Reports: Fracture Neurological History: Reports: None Psychiatric History: Reports: Anxiety, Depression Endocrine/Metabolic History: Reports: Diabetes, Type II Hematologic History: Reports: None Immunologic History: Reports: None Oncologic (Cancer) History: Reports: None Dermatologic History: Reports: None - Infectious Disease History Infectious Disease History: Reports: Chicken Pox Other Infectious Disease History: childhood - Past Surgical History Head Surgeries/Procedures: Reports: None HEENT Surgical History: Reports: Tonsillectomy GI Surgical History: Reports: Cholecystectomy, Hernia Repair/Other 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 Surgical History: Reports: Other (See Below) Social & Family History - Family History Family Medical History: Noncontributory Cardiac: Reports: CAD - Tobacco Use Smoking Status *Q: Never Smoker - Caffeine Use Caffeine Use: Reports: Coffee - Recreational Drug Use Recreational Drug Use: No ED ROS GENERAL - Review of Systems Review Of Systems: ROS reveals no pertinent complaints other than HPI. ED EXAM, GENERAL - Physical Exam Exam: See Below (see dictation) Course - Vital Signs Last Recorded V/S: Last Vital Signs Temp 36.6 C 07/07/18 13:46 Pulse 78 07/07/18 13:46 Resp 20 07/07/18 13:46 BP 137/89 07/07/18 13:46 Pulse Ox 98 07/07/18 13:46 - Orders/Labs/Meds Orders: Active Orders 24 hr Category Date Time Status Cardiac Monitoring [RC] . DIRECTED Care 07/07/18 13:41 Active EKG Documentation Completion [RC] STAT Care 07/07/18 13:41 Active UA RFX LIZANDRO AND CULT IF INDIC [URIN] Stat Lab 07/07/18 14:17 Ordered Sodium Chloride 0.9% [Normal Saline] 1,000 ml Med 07/07/18 14:38 Active IV STAT Medication Orders Sodium Chloride (Normal Saline) 1,000 mls @ 999 mls/hr IV STAT ONE Stop: 07/07/18 15:38 Last Admin: 07/07/18 14:54 Dose: 999 mls/hr Labs: Laboratory Tests 07/07/18 07/07/18 07/07/18 Range/Units 13:50 13:50 13:50 WBC 11.15 H (4.0-11.0) K/uL RBC 4.15 L (4.30-5.90) M/uL Hgb 12.8 (12.0-16.0) g/dL Hct 40.2 (36.0-46.0) % MCV 96.9 (80.0-98.0) fL MCH 30.8 (27.0-32.0) pg MCHC 31.8 (31.0-37.0) g/dL RDW Std Deviation 46.1 (28.0-62.0) fl RDW Coeff of Tanmay 13 (11.0-15.0) % Plt Count 388 (150-400) K/uL MPV 9.10 (7.40-12.00) fL Neut % (Auto) 64.6 (48.0-80.0) % Lymph % (Auto) 29.8 (16.0-40.0) % Lynn % (Auto) 4.1 (0.0-15.0) % Eos % (Auto) 1.3 (0.0-7.0) % Baso % (Auto) 0.2 (0.0-1.5) % Neut # (Auto) 7.2 H (1.4-5.7) K/uL Lymph # (Auto) 3.3 H (0.6-2.4) K/uL Lynn # (Auto) 0.5 (0.0-0.8) K/uL Eos # (Auto) 0.1 (0.0-0.7) K/uL Baso # (Auto) 0.0 (0.0-0.1) K/uL Nucleated RBC % 0.0 /100WBC Nucleated RBCs # 0 K/uL Sodium 140 (136-145) mmol/L Potassium 4.2 (3.5-5.1) mmol/L Chloride 107 (98-107) mmol/L Carbon Dioxide 21.7 (21.0-32.0) mmol/L BUN 17 (7.0-18.0) mg/dL Creatinine 1.4 H (0.6-1.0) mg/dL Est Cr Clr Drug Dosing 40.29 mL/min Estimated GFR (MDRD) 42.8 ml/min Glucose 128 H (74-106) mg/dL Calcium 8.4 L (8.5-10.1) mg/dL Total Bilirubin 0.3 (0.2-1.0) mg/dL AST 9 L (15-37) IU/L ALT 14 (14-63) IU/L Alkaline Phosphatase 56 (46-116) U/L Troponin I < 0.050 (0.000-0.056) ng/mL Total Protein 7.6 (6.4-8.2) g/dL Albumin 3.2 L (3.4-5.0) g/dL Globulin 4.4 H (2.6-4.0) g/dL Albumin/Globulin Ratio 0.7 L (0.9-1.6) Lipase 139 (73-393) U/L Urine HCG, Qual NEGATIVE (NEGATIVE) Meds: Medications Generic Name Dose Route Start Last Admin Trade Name Freq PRN Reason Stop Dose Admin Sodium Chloride 1,000 mls @ 999 mls/hr 07/07/18 14:38 07/07/18 14:54 Normal Saline IV 07/07/18 15:38 999 mls/hr STAT ONE Administration Discontinued Medications Generic Name Dose Route Start Last Admin Trade Name Freq PRN Reason Stop Dose Admin Ketorolac Tromethamine 30 mg 07/07/18 14:38 07/07/18 14:54 Toradol IVPUSH 07/07/18 14:39 30 mg ONETIME ONE Administration Departure - Departure Time of Disposition: 15:27 Disposition: Home, Self-Care 01 Clinical Impression: Chest wall pain, History of diabetes mellitus Referrals: PCP,Unknown [Primary Care Provider] - Forms: ED Department Discharge Additional Instructions: The following information is given to patients seen in the emergency department who are being discharged to home. This information is to outline your options for follow-up care. We provide all patients seen in our emergency department with a follow-up referral. The need for follow-up, as well as the timing and circumstances, are variable depending upon the specifics of your emergency department visit. If you don't have a primary care physician on staff, we will provide you with a referral. We always advise you to contact your personal physician following an emergency department visit to inform them of the circumstance of the visit and for follow-up with them and/or the need for any referrals to a consulting specialist. The emergency department will also refer you to a specialist when appropriate. This referral assures that you have the opportunity for follow-up care with a specialist. All of these measure are taken in an effort to provide you with optimal care, which includes your follow-up. Under all circumstances we always encourage you to contact your private physician who remains a resource for coordinating your care. When calling for follow-up care, please make the office aware that this follow-up is from your recent emergency room visit. If for any reason you are refused follow-up, please contact the [facility] Emergency Department at and asked to speak to the emergency department charge nurse. [facility] [address] [place] [id number] [address] 1. Take medication as prescribed. You can also use Tylenol as directed for pain and discomfort. 2. Follow-up with her primary care provider as discussed. 3. Return to the ED as needed and as discussed. - My Orders Last 24 Hours: My Active Orders 07/07/18 13:41 Cardiac Monitoring [RC] . DIRECTED EKG Documentation Completion [RC] STAT 07/07/18 14:17 UA RFX LIZANDRO AND CULT IF INDIC [URIN] Stat 07/07/18 14:38 Sodium Chloride 0.9% [Normal Saline] 1,000 ml IV STAT - Assessment/Plan Last 24 Hours: My Active Orders 07/07/18 13:41 Cardiac Monitoring [RC] . DIRECTED EKG Documentation Completion [RC] STAT 07/07/18 14:17 UA RFX LIZANDRO AND CULT IF INDIC [URIN] Stat 07/07/18 14:38 Sodium Chloride 0.9% [Normal Saline] 1,000 ml IV STAT
--- NOTE | 2018-07-07 15:23 | CR ---
INDICATION: Portable AP erect chest performed at 2:40 p.m. COMPARISON: none TECHNIQUE: Shortness of breath FINDINGS: The lungs are clear. There is no evidence of pneumothorax. The heart, mediastinum and pulmonary vessels are of normal size. There is no evidence of pleural fluid. IMPRESSION: Negative chest. Dictated by Mansoor London MD @ Jul 07 2018 3:21PM Signed by Dr. Mansoor London @ Jul 07 2018 3:21PM
[2018-07-07 15:40] VITALS: BP 130/77
== END 2018-07-07 15:40 | disposition home or self-care (01) ==
LOC: MW.ED 13:40
DX: R07.89 Other chest pain (principal); E11.9 Type 2 diabetes mellitus without complications; I10 Essential (primary) hypertension; F41.9 Anxiety disorder, unspecified; F32.9 Major depressive disorder, single episode, unspecified; Z88.1 Allergy status to other antibiotic agents; Z88.0 Allergy status to penicillin; Z79.84 Long term (current) use of oral hypoglycemic drugs; Z79.899 Other long term (current) drug therapy
CPT/HCPCS: 36415; 71045; 80053; 81025; 83690; 84484; 85025; 93005; 96374; 99285; J1885; J7040

== ENCOUNTER 2019-02-24 10:26 | Emergency (ER) | payer BC ==
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
[2019-02-24] MEDS ORDERED: Meclizine 25 MG Tab PO ONE (11:12)
[2019-02-24 11:30] VITALS: BP 136/80; PULSE 82
== END 2019-02-24 11:32 | disposition home or self-care (01) ==
LOC: MW.ED 10:26
DX: S00.83XA Contusion of other part of head, initial encounter (principal); R42 Dizziness and giddiness; I10 Essential (primary) hypertension; E11.9 Type 2 diabetes mellitus without complications; F32.9 Major depressive disorder, single episode, unspecified; F41.9 Anxiety disorder, unspecified; Z79.84 Long term (current) use of oral hypoglycemic drugs; Z79.899 Other long term (current) drug therapy; Z88.0 Allergy status to penicillin; Z88.1 Allergy status to other antibiotic agents; Z88.2 Allergy status to sulfonamides; Z91.011 Allergy to milk products; V48.4XXA Person boarding or alighting a car injured in noncollision transport accident, initial encounter; Y92.410 Unspecified street and highway as the place of occurrence of the external cause
CPT/HCPCS: 99283; A9270; 99282

== ENCOUNTER 2019-08-16 21:43 | Emergency (ER) | payer BC ==
[2019-08-16] MEDS ORDERED: Sodium Chloride 0.9% 1,000 ML IV ONE ×2 (22:20→23:45)
[2019-08-16 22:36] LABS: CARBON DIOXIDE,CO2 18.5 mmol/L (21.0-32.0); POTASSIUM,K 3.9 mmol/L (3.5-5.1)
--- NOTE | 2019-08-16 23:49 | EDM.PDOC ---
ED HPI GENERAL MEDICAL PROBLEM - General Chief Complaint: Diabetic Complaint Stated Complaint: HIGH BLOOD SUGAR Time Seen by Provider: 08/16/19 23:36 - History of Present Illness INITIAL COMMENTS - FREE TEXT/NARRATIVE: History of present illness: 34-year-old female presenting with feeling of dizziness/fatigue/weakness which occurred while she was walking around a [place] outdoors. She had been outside in the sun. She does report that she has been walking daily around the [place] trying to increase her exercise and help her who has atrial fibrillation. She does appear sunburned. She does report that she has been flushed since that happened. She checked her glucose this evening and it was 278 and she was somewhat concerned that she does not take insulin and she takes metformin 1250 in the evening. No difficulty breathing or chest pain. No abdominal pain. No palpitations. Review of systems: As per history of present illness and below otherwise all systems reviewed and negative. Past medical history: As per history of present illness and as reviewed below otherwise noncontributory. Diabetes type 2 Surgical history: As per history of present illness and as reviewed below otherwise noncontributory. Social history: No reported history of drug or alcohol abuse. Family history: As per history of present illness and as reviewed below otherwise noncontributory. Physical exam: GEN: no acute distress, well appearing, appears sunburned HEENT: Atraumatic, normocephalic, mucous membranes moist, Neck: supple, nontender, trachea midline. Lungs: No respiratory distress. Heart: RRR Abdomen: Soft, nondistended, nontender. Back: nontender Extremities: Atraumatic. Neurovascularly intact. Neuro: Awake, alert, oriented. Neuro Exam nonfocal. Skin: warm, dry, no lesions , face appears flushed and sunburned Diagnostics: As, TSH, x-ray, UA Therapeutics: Normal saline x2 L MDM: Impression: [] Plan: [] Definitive disposition and diagnosis as appropriate pending reevaluation and review of above. - Related Data Allergies Allergy/AdvReac Type Severity Reaction Status Date / Time cephalexin monohydrate Allergy Rash Verified 08/16/19 22:03 [From Keflex] Milk Containing Products Allergy Diarrhea Verified 08/16/19 22:03 Penicillins Allergy Diarrhea Verified 08/16/19 22:03 sulfamethoxazole Allergy Rash Verified 08/16/19 22:03 [From Bactrim] trimethoprim [From Bactrim] Allergy Rash Verified 08/16/19 22:03 Home Meds: Home Meds metFORMIN [metFORMIN XR] 1,250 mg PO DAILY 05/21/13 [History] Ramipril 5 mg PO DAILY 06/07/14 [History] B-Complex with Vitamin C [Super B Complex-Vitamin C] 1 each PO DAILY 02/09/15 [History] Phentermine/Topiramate [Qsymia 3.75 mg-23 mg Capsule] 1 each PO DAILY 02/24/19 [History] Ciprofloxacin [Ciprofloxacin HCl] 500 mg PO BID #20 tab 08/17/19 [Rx] Past Medical History - Past Health History Medical/Surgical History: Denies Medical/Surgical History HEENT History: Reports: None Cardiovascular History: Reports: Hypertension Respiratory History: Reports: None Gastrointestinal History: Reports: None Genitourinary History: Reports: Other (See Below) Other Genitourinary History: ovarian cysts, bilateral LEPIDOPTERIST History: Reports: Other (See Below) Other LEPIDOPTERIST History: ovarian cysts, bilateral 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 History: Reports: Fracture, Other (See Below) Other 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 History: fx R ankle - no sx Neurological History: Reports: None Psychiatric History: Reports: Anxiety, Depression Endocrine/Metabolic History: Reports: Diabetes, Type II Hematologic History: Reports: None Immunologic History: Reports: None Oncologic (Cancer) History: Reports: None Dermatologic History: Reports: None - Infectious Disease History Infectious Disease History: Reports: Chicken Pox, Shingles Other Infectious Disease History: childhood - Past Surgical History Head Surgeries/Procedures: Reports: None HEENT Surgical History: Reports: Adenoidectomy, Tonsillectomy Cardiovascular Surgical History: Reports: None GI Surgical History: Reports: Cholecystectomy, Hernia Repair/Other Female Surgical History: Reports: None Endocrine Surgical History: Reports: None 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 Surgical History: Reports: None Social & Family History - Family History Family Medical History: Noncontributory Cardiac: Reports: CAD - Tobacco Use Smoking Status *Q: Never Smoker Second Hand Smoke Exposure: No - Caffeine Use Caffeine Use: Reports: Coffee, Soda - Recreational Drug Use Recreational Drug Use: No ED ROS GENERAL - Review of Systems Review Of Systems: See Below (See HPI) ED EXAM GENERAL NO PERIP PULSE - Physical Exam Exam: See Below (See HPI) Course - Vital Signs Text/Narrative:: Patient became dizzy while out in the sun and heat. Creatinine is slightly elevated as is white count. UA does appear to have some bacteria, possible UTI. She is a diabetic. Her glucoses in the 200s here. She takes metformin. Patient is elevated, however free T4 is not. Last Recorded V/S: Last Vital Signs Temp 99.4 F 08/16/19 22:57 Pulse 85 08/17/19 01:31 Resp 18 08/17/19 01:31 BP 128/76 08/17/19 01:31 Pulse Ox 97 08/17/19 01:31 - Orders/Labs/Meds Orders: Active Orders 24 hr Category Date Time Status EKG Documentation Completion [RC] STAT Care 08/16/19 23:45 Active CULTURE URINE [RM] Stat Lab 08/16/19 21:55 Received Saline Lock Insert [OM.PC] Stat Oth 08/16/19 22:20 Ordered Labs: Laboratory Tests 08/16/19 08/16/19 08/16/19 Range/Units 00:00 21:55 21:55 WBC (4.0-11.0) K/uL RBC (4.30-5.90) M/uL Hgb (12.0-16.0) g/dL Hct (36.0-46.0) % MCV (80.0-98.0) fL MCH (27.0-32.0) pg MCHC (31.0-37.0) g/dL RDW Std Deviation (28.0-62.0) fl RDW Coeff of Tanmay (11.0-15.0) % Plt Count (150-400) K/uL MPV (7.40-12.00) fL Neut % (Auto) (48.0-80.0) % Lymph % (Auto) (16.0-40.0) % Luce % (Auto) (0.0-15.0) % Eos % (Auto) (0.0-7.0) % Baso % (Auto) (0.0-1.5) % Neut # (Auto) (1.4-5.7) K/uL Lymph # (Auto) (0.6-2.4) K/uL Luce # (Auto) (0.0-0.8) K/uL Eos # (Auto) (0.0-0.7) K/uL Baso # (Auto) (0.0-0.1) K/uL Nucleated RBC % /100WBC Nucleated RBCs # K/uL Sodium (136-145) mmol/L Potassium (3.5-5.1) mmol/L Chloride (98-107) mmol/L Carbon Dioxide (21.0-32.0) mmol/L BUN (7.0-18.0) mg/dL Creatinine (0.6-1.0) mg/dL Est Cr Clr Drug Dosing mL/min Estimated GFR (MDRD) ml/min Glucose (74-106) mg/dL Calcium (8.5-10.1) mg/dL Total Bilirubin (0.2-1.0) mg/dL AST (15-37) IU/L ALT (14-63) IU/L Alkaline Phosphatase (46-116) U/L Total Protein (6.4-8.2) g/dL Albumin (3.4-5.0) g/dL Globulin (2.6-4.0) g/dL Albumin/Globulin Ratio (0.9-1.6) Free T4 1.10 (0.76-1.46) ng/dL TSH 3rd Generation (0.36-3.74) uIU/mL Urine Color YELLOW Urine Appearance SLT CLOUDY Urine pH 5.0 (5.0-8.0) Ur Specific [place] >= 1.030 (1.001-1.035) Urine Protein NEGATIVE (NEGATIVE) mg/dL Urine Glucose (UA) >=1000 (NEGATIVE) mg/dL Urine Ketones NEGATIVE (NEGATIVE) mg/dL Urine Occult Blood NEGATIVE (NEGATIVE) Urine Nitrite NEGATIVE (NEGATIVE) Urine Bilirubin NEGATIVE (NEGATIVE) Urine Urobilinogen 0.2 (<2.0) EU/dL Ur Leukocyte Esterase TRACE H (NEGATIVE) Urine RBC 0-2 (0-2/HPF) Urine WBC 2-5 (0-5/HPF) Ur Epithelial Cells FEW (NONE-FEW) Urine Bacteria 1+ H (NEGATIVE) Urine HCG, Qual NEGATIVE (NEGATIVE) 08/16/19 08/16/19 08/16/19 Range/Units 22:05 22:05 22:05 WBC 14.22 H (4.0-11.0) K/uL RBC 4.40 (4.30-5.90) M/uL Hgb 13.8 (12.0-16.0) g/dL Hct 41.1 (36.0-46.0) % MCV 93.4 (80.0-98.0) fL MCH 31.4 (27.0-32.0) pg MCHC 33.6 (31.0-37.0) g/dL RDW Std Deviation 42.9 (28.0-62.0) fl RDW Coeff of Tanmay 13 (11.0-15.0) % Plt Count 398 (150-400) K/uL MPV 8.90 (7.40-12.00) fL Neut % (Auto) 63.7 (48.0-80.0) % Lymph % (Auto) 30.0 (16.0-40.0) % Luce % (Auto) 5.1 (0.0-15.0) % Eos % (Auto) 0.9 (0.0-7.0) % Baso % (Auto) 0.3 (0.0-1.5) % Neut # (Auto) 9.1 H (1.4-5.7) K/uL Lymph # (Auto) 4.3 H (0.6-2.4) K/uL Luce # (Auto) 0.7 (0.0-0.8) K/uL Eos # (Auto) 0.1 (0.0-0.7) K/uL Baso # (Auto) 0.0 (0.0-0.1) K/uL Nucleated RBC % 0.0 /100WBC Nucleated RBCs # 0 K/uL Sodium 133 L (136-145) mmol/L Potassium 3.9 (3.5-5.1) mmol/L Chloride 98 (98-107) mmol/L Carbon Dioxide 18.5 L (21.0-32.0) mmol/L BUN 18 (7.0-18.0) mg/dL Creatinine 1.3 H (0.6-1.0) mg/dL Est Cr Clr Drug Dosing 42.97 mL/min Estimated GFR (MDRD) 46.3 ml/min Glucose 251 H (74-106) mg/dL Calcium 9.4 (8.5-10.1) mg/dL Total Bilirubin 0.2 (0.2-1.0) mg/dL AST 15 (15-37) IU/L ALT 13 L (14-63) IU/L Alkaline Phosphatase 64 (46-116) U/L Total Protein 8.1 (6.4-8.2) g/dL Albumin 3.3 L (3.4-5.0) g/dL Globulin 4.8 H (2.6-4.0) g/dL Albumin/Globulin Ratio 0.7 L (0.9-1.6) Free T4 (0.76-1.46) ng/dL TSH 3rd Generation 13.89 H (0.36-3.74) uIU/mL Urine Color Urine Appearance Urine pH (5.0-8.0) Ur Specific [place] (1.001-1.035) Urine Protein (NEGATIVE) mg/dL Urine Glucose (UA) (NEGATIVE) mg/dL Urine Ketones (NEGATIVE) mg/dL Urine Occult Blood (NEGATIVE) Urine Nitrite (NEGATIVE) Urine Bilirubin (NEGATIVE) Urine Urobilinogen (<2.0) EU/dL Ur Leukocyte Esterase (NEGATIVE) Urine RBC (0-2/HPF) Urine WBC (0-5/HPF) Ur Epithelial Cells (NONE-FEW) Urine Bacteria (NEGATIVE) Urine HCG, Qual (NEGATIVE) Meds: Medications Discontinued Medications Generic Name Dose Route Start Last Admin Trade Name Iza PRN Reason Stop Dose Admin Cephalexin 500 mg 08/17/19 01:27 08/17/19 01:43 Keflex PO 08/17/19 01:28 Not Given ONETIME ONE Ciprofloxacin 500 mg 08/17/19 01:31 08/17/19 01:43 Ciprofloxacin Hcl PO 08/17/19 01:32 500 mg ONETIME ONE Administration Sodium Chloride 1,000 mls @ 999 mls/hr 08/16/19 22:20 08/16/19 22:35 Normal Saline IV 08/16/19 23:20 999 mls/hr .Bolus ONE Administration Sodium Chloride 1,000 mls @ 999 mls/hr 08/16/19 23:45 08/17/19 00:08 Normal Saline IV 08/17/19 00:45 999 mls/hr .Bolus ONE Administration - Re-Assessments/Exams Free Text/Narrative Re-Assessment/Exam: 08/17/19 12:50 Results discussed with patient. TSH still pending. Discussed urinalysis findings. The patient does report that she was recently treated for a UTI with Macrobid, which she just completed. We discussed that she is still having bacteria in the urine and therefore will cover her with Keflex as well. First dose given. 08/17/19 01:29 The TSH was elevated, therefore free T4 was ordered, which is within reference range. Patient be given antibiotic. She will be discharged. 08/17/19 01:32 I did discuss plan to give Keflex to the patient directly with the patient prior to ordering this. I verified that she had no allergy to Keflex, which she confirmed twice. However she did report to nursing that she had a Keflex allergy, and when the nurse went to give her the medication to verify again, she did report that she did indeed have an allergy to Keflex that she had previously denied. Therefore the antibiotic will be changed to Cipro. Departure - Departure Time of Disposition: 01:29 Disposition: Home, Self-Care 01 Clinical Impression: Dizziness, Dehydration UTI (urinary tract infection) Qualifiers: Urinary tract infection type: acute cystitis - Discharge Information Prescriptions: Ciprofloxacin [Ciprofloxacin HCl] 500 mg PO BID #20 tab Instructions: Antibiotic Medicine, Adult, [id number], Urinary Tract Infection, Adult, [id number], Dehydration, Adult, [id number], Rehydration, Adult Referrals: Shanice Terrazas MD [Primary Care Provider] - 2 Days Forms: ED Department Discharge Additional Instructions: The following information is given to patients seen in the emergency department who are being discharged to home. This information is to outline your options for follow-up care. We provide all patients seen in our emergency department with a follow-up referral. The need for follow-up, as well as the timing and circumstances, are variable depending upon the specifics of your emergency department visit. If you don't have a primary care physician on staff, we will provide you with a referral. We always advise you to contact your personal physician following an emergency department visit to inform them of the circumstance of the visit and for follow-up with them and/or the need for any referrals to a consulting specialist. The emergency department will also refer you to a specialist when appropriate. This referral assures that you have the opportunity for follow-up care with a specialist. All of these measure are taken in an effort to provide you with optimal care, which includes your follow-up. Under all circumstances we always encourage you to contact your private physician who remains a resource for coordinating your care. When calling for follow-up care, please make the office aware that this follow-up is from your recent emergency room visit. If for any reason you are refused follow-up, please contact the [facility] Emergency Department at and asked to speak to the emergency department charge nurse. Sepsis Event Note (ED) - Evaluation Sepsis Screening Result: No Definite Risk - Focused Exam Vital Signs: Vital Signs Temp Pulse Resp BP Pulse Ox 08/17/19 01:31 85 18 128/76 97 08/17/19 00:14 89 20 133/78 96 08/16/19 22:57 99.4 F 95 16 127/88 96 08/16/19 22:00 99.9 F 96 18 135/90 97 - My Orders Last 24 Hours: My Active Orders 08/16/19 21:55 CULTURE URINE [RM] Stat 08/16/19 22:20 Saline Lock Insert [OM.PC] Stat 08/16/19 23:45 EKG Documentation Completion [RC] STAT - Assessment/Plan Last 24 Hours: My Active Orders 08/16/19 21:55 CULTURE URINE [RM] Stat 08/16/19 22:20 Saline Lock Insert [OM.PC] Stat 08/16/19 23:45 EKG Documentation Completion [RC] STAT
[2019-08-17] MEDS ORDERED: Cephalexin 500 MG Cap PO ONE (01:27)
[2019-08-17] MEDS ORDERED: Ciprofloxacin 500 MG Tab PO ONE (01:31)
[2019-08-17 03:19] VITALS: BP 128/84; PULSE 90
== END 2019-08-17 00:24 | disposition home or self-care (01) ==
LOC: MW.ED 21:43
DX: E86.0 Dehydration (principal); N30.00 Acute cystitis without hematuria; I10 Essential (primary) hypertension; E11.9 Type 2 diabetes mellitus without complications; Z79.84 Long term (current) use of oral hypoglycemic drugs; Z79.899 Other long term (current) drug therapy; Z88.1 Allergy status to other antibiotic agents; Z91.011 Allergy to milk products; Z88.0 Allergy status to penicillin; Z88.2 Allergy status to sulfonamides
CPT/HCPCS: 36415; 80053; 81001; 81025; 84439; 84443; 85025; 87086; 93005; 96360; 96361; 99284; A9270; J7030; 99283

== ENCOUNTER 2020-01-03 18:11 | Emergency (ER) | payer BC ==
[2020-01-03] MEDS ORDERED: Acetaminophen/HYDROcodone 325-7.5 MG Tab PO STA (19:08)
--- NOTE | 2020-01-03 19:13 | EDM.PDOC ---
ED HPI GENERAL MEDICAL PROBLEM - General Chief Complaint: Lower Extremity Injury/Pain Stated Complaint: RIGHT LEG SWOLLEN Time Seen by Provider: 01/03/20 19:01 - History of Present Illness INITIAL COMMENTS - FREE TEXT/NARRATIVE: History of present illness: [] Pleasant 34-year-old diabetic woman ports yesterday she started having swelling and pain in the anterior right thigh. And diffusely in the right anterior thigh she has swelling and pain. The pain is 8 out of 10 severe and dull. Pain is worse when she touches it or when she tries to walk. It is gradually gotten worse over the last 24 hours notes constant. The patient has no other associated signs of systemic infection or illness. The patient had an ultrasound before for similar symptoms and was negative. The patient has had shingles but unrelated to that prior ultrasound episode. When the patient had shingles in the past she got a rash early and was diagnosed on initial exam. Number embolic risk includes control pills and moderate obesity. She has negative personal and family history of thromboembolic disease. She does not smoke. She is on oral contraceptives. She has no recent immobilization surgery or trip. Review of systems: As per history of present illness and below otherwise all systems reviewed and negative. Past medical history: As per history of present illness and as reviewed below otherwise noncontributory. Surgical history: As per history of present illness and as reviewed below otherwise noncontributory. Social history: No reported history of drug or alcohol abuse. Family history: As per history of present illness and as reviewed below otherwise noncontributory. Physical exam: Constitutional - well developed, well-nourished and in no acute distress HEENT - normocephalic, no evidence of trauma - external nose and mouth normal - no mass in neck and no JVD - mucosae moist EYES - full EOM, PERRL, no icterus - no evidence of inflammation, injection, or drainage Respiratory - no respiratory distress, equal bilateral expansion 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 right lower extremity from thigh to knee is larger than the left lower extremity and there is tenderness in the medial and anterior right thigh. I do not detect any erythema or rash. Otherwise no gross deformity of long bones or joints - no other tenderness, swelling or edema Neurologic - Alert and oriented times four - CN II-XII grossly intact - motor s ensory and coordination symmetrically normal Psychiatric - appropriate mood and affect with normal thought content Hematologic - No petechiae or purpura - mucosa appropriate color and sclera not pale - normal nail bed color and refill Integument - no rash or evidence of trauma - normal turgor Diagnostics: [] Therapeutics: [] Impression: [] Plan: [] Definitive disposition and diagnosis as appropriate pending reevaluation and review of above. right thigh Pain Score (Numeric/FACES): 8 - Related Data Allergies Allergy/AdvReac Type Severity Reaction Status Date / Time cephalexin monohydrate Allergy Rash Verified 01/03/20 18:50 [From Keflex] Milk Containing Products Allergy Diarrhea Verified 01/03/20 18:50 Penicillins Allergy Diarrhea Verified 01/03/20 18:50 sulfamethoxazole Allergy Rash Verified 01/03/20 18:50 [From Bactrim] trimethoprim [From Bactrim] Allergy Rash Verified 01/03/20 18:50 Home Meds: Home Meds metFORMIN [metFORMIN XR] 1,250 mg PO DAILY 05/21/13 [History] Ramipril 5 mg PO DAILY 06/07/14 [History] Phentermine/Topiramate [Qsymia 3.75 mg-23 mg Capsule] 1 each PO DAILY 02/24/19 [History] Hydrocodone/Acetaminophen [[place] 5-325 Tablet] 1 each PO Q4HR PRN #14 tablet 01/03/20 [Rx] Past Medical History - Past Health History Medical/Surgical History: Denies Medical/Surgical History HEENT History: Reports: None Cardiovascular History: Reports: Hypertension Respiratory History: Reports: None Gastrointestinal History: Reports: None Genitourinary History: Reports: Other (See Below) Other Genitourinary History: ovarian cysts, bilateral INVENTORY MANAGER History: Reports: Other (See Below) Other INVENTORY MANAGER History: ovarian cysts, bilateral 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 History: Reports: Fracture, Other (See Below) Other 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 History: fx R ankle - no sx Neurological History: Reports: None Psychiatric History: Reports: Anxiety, Depression Endocrine/Metabolic History: Reports: Diabetes, Type II Hematologic History: Reports: None Immunologic History: Reports: None Oncologic (Cancer) History: Reports: None Dermatologic History: Reports: None - Infectious Disease History Infectious Disease History: Reports: Chicken Pox, Shingles Other Infectious Disease History: childhood - Past Surgical History Head Surgeries/Procedures: Reports: None HEENT Surgical History: Reports: Adenoidectomy, Tonsillectomy Cardiovascular Surgical History: Reports: None GI Surgical History: Reports: Cholecystectomy, Hernia Repair/Other Female Surgical History: Reports: None Endocrine Surgical History: Reports: None 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 Surgical History: Reports: None Other 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 Surgeries/Procedures:: Right meniscus repair Social & Family History - Family History Family Medical History: No Pertinent Family History Cardiac: Reports: CAD - Tobacco Use Tobacco Use Status *Q: Never Tobacco User - Caffeine Use Caffeine Use: Reports: Coffee, Soda - Recreational Drug Use Recreational Drug Use: No Review of Systems - Review of Systems Review Of Systems: Comprehensive ROS is negative, except as noted in HPI. ED EXAM, GENERAL - Physical Exam Exam: See Below Free Text/Narrative:: my physical exam is in the HPI Course - Vital Signs Last Recorded V/S: Last Vital Signs Temp 36.7 C 01/03/20 19:08 Pulse 85 01/03/20 18:51 Resp 16 01/03/20 18:51 BP 142/83 H 01/03/20 18:51 Pulse Ox 96 01/03/20 18:51 - Orders/Labs/Meds Labs: Laboratory Tests 01/03/20 01/03/20 Range/Units 19:17 19:17 WBC 9.93 (4.0-11.0) K/uL RBC 4.06 L (4.30-5.90) M/uL Hgb 12.7 (12.0-16.0) g/dL Hct 39.6 (36.0-46.0) % MCV 97.5 (80.0-98.0) fL MCH 31.3 (27.0-32.0) pg MCHC 32.1 (31.0-37.0) g/dL RDW Std Deviation 46.2 (28.0-62.0) fl RDW Coeff of Tanmay 13 (11.0-15.0) % Plt Count 372 (150-400) K/uL MPV 9.10 (7.40-12.00) fL Neut % (Auto) 50.5 (48.0-80.0) % Lymph % (Auto) 41.5 H (16.0-40.0) % [place] % (Auto) 5.9 (0.0-15.0) % Eos % (Auto) 1.9 (0.0-7.0) % Baso % (Auto) 0.2 (0.0-1.5) % Neut # (Auto) 5.0 (1.4-5.7) K/uL Lymph # (Auto) 4.1 H (0.6-2.4) K/uL [place] # (Auto) 0.6 (0.0-0.8) K/uL Eos # (Auto) 0.2 (0.0-0.7) K/uL Baso # (Auto) 0.0 (0.0-0.1) K/uL Nucleated RBC % 0.0 /100WBC Nucleated RBCs # 0 K/uL Sodium 140 (136-145) mmol/L Potassium 4.2 (3.5-5.1) mmol/L Chloride 106 (98-107) mmol/L Carbon Dioxide 22.0 (21.0-32.0) mmol/L BUN 12 (7.0-18.0) mg/dL Creatinine 1.0 (0.6-1.0) mg/dL Est Cr Clr Drug Dosing 55.86 mL/min Estimated GFR (MDRD) > 60.0 ml/min Glucose 180 H (74-106) mg/dL Calcium 9.3 (8.5-10.1) mg/dL Meds: Medications Discontinued Medications Generic Name Dose Route Start Last Admin Trade Name Iza PRN Reason Stop Dose Admin Hydrocodone Bitart/Acetaminophen 1 tab 01/03/20 19:08 01/03/20 19:15 [place] 325-7.5 Mg PO 01/03/20 19:09 1 tab STAT STA Administration Departure - Departure Time of Disposition: 21:12 Disposition: Home, Self-Care 01 Condition: Good Clinical Impression: Thigh pain, History of shingles - Discharge Information Instructions: Pain Medicine Instructions, [id number] Referrals: PCP,None [Primary Care Provider] - Forms: ED Department Discharge Additional Instructions: If you develop a rash or pimples in the area you need to let your doctor or clinic know immediately so we can start antiviral treatment for shingles. Otherwise favored as though you may have a muscle strain or musculoskeletal pain. If your leg swells more and the pain continues then after few days the ultrasound can be repeated to make sure there was not a very small blood clot that was too small to detect today. [facility] - Primary Care [address] [place] [address] [facility] [address] [place] [address] The following information is given to patients seen in the emergency department who are being discharged to home. This information is to outline your options for follow-up care. We provide all patients seen in our emergency department with a follow-up referral. The need for follow-up, as well as the timing and circumstances, are variable depending upon the specifics of your emergency department visit. If you don't have a primary care physician on staff, we will provide you with a referral. We always advise you to contact your personal physician following an emergency department visit to inform them of the circumstance of the visit and for follow-up with them and/or the need for any referrals to a consulting specialist. The emergency department will also refer you to a specialist when appropriate. This referral assures that you have the opportunity for follow-up care with a specialist. All of these measure are taken in an effort to provide you with optimal care, which includes your follow-up. Under all circumstances we always encourage you to contact your private physician who remains a resource for coordinating your care. When calling for follow-up care, please make the office aware that this follow-up is from your recent emergency room visit. If for any reason you are refused follow-up, please contact the [facility] Emergency Department at and asked to speak to the emergency department charge nurse. Sepsis Event Note (ED) - Evaluation Sepsis Screening Result: No Definite Risk - Focused Exam Vital Signs: Vital Signs Temp Pulse Resp BP Pulse Ox 01/03/20 19:08 36.7 C 01/03/20 18:51 85 16 142/83 H 96
[2020-01-03 19:52] LABS: CHLORIDE,CL 106 mmol/L (98-107); GLUCOSE RANDOM 180 mg/dL (74-106); POTASSIUM,K 4.2 mmol/L (3.5-5.1); SODIUM,NA 140 mmol/L (136-145)
[2020-01-03 20:04] LABS: BLOOD UREA NITROGEN,BUN 12 mg/dL (7.0-18.0)
--- NOTE | 2020-01-03 21:06 | US ---
INDICATION: pain rt thigh, swelling RIGHT LOWER EXTREMITY VENOUS DUPLEX ULTRASOUND TECHNIQUE: Duplex sonography using grayscale imaging as well as color and spectral Doppler interrogation was performed over the right lower extremity with attention to the deep venous system. FINDINGS: The right common femoral, femoral, deep femoral, popliteal, and posterior tibial veins show normal compressibility, color Doppler flow, and augmentation response. IMPRESSION: No evidence of deep venous thrombosis in the right lower extremity. JAROD MITCHELL MD [employer] Dictated by: Huy Mitchell MD @ 01/03/2020 21:05:16 (Electronically Signed)
[2020-01-03 21:25] VITALS: BP 135/74; PULSE 77
== END 2020-01-03 21:27 | disposition home or self-care (01) ==
LOC: MW.ED 18:11
DX: M79.651 Pain in right thigh (principal); I10 Essential (primary) hypertension; E11.9 Type 2 diabetes mellitus without complications; Z88.1 Allergy status to other antibiotic agents; Z88.0 Allergy status to penicillin; Z88.2 Allergy status to sulfonamides; Z91.011 Allergy to milk products; Z79.899 Other long term (current) drug therapy
CPT/HCPCS: 36415; 80048; 85025; 93971; 99284; A9270; 99283

== ENCOUNTER 2020-02-09 10:43 | Emergency (ER) | payer BC ==
--- NOTE | 2020-02-09 10:53 | PCM.SN.2 ---
- Free Text/Narrative Note: KG done at 10:45 a.m. and read at 10:51 AM sinus rhythm heart rate 92 MI 136 QT 440 axis XX 3 borderline T abnormality compared to 08/17/2019 no change impression no acute injury
[2020-02-09] MEDS ORDERED: Sodium Chloride 0.9% 1,000 ML IV ONE (10:57)
--- NOTE | 2020-02-09 11:12 | EDM.PDOC ---
ED HPI GENERAL MEDICAL PROBLEM - General Chief Complaint: Chest Pain Stated Complaint: HIGH BLOOD PRESURE Time Seen by Provider: 02/09/20 10:51 Source of Information: Reports: Patient History Limitations: Reports: No Limitations - History of Present Illness INITIAL COMMENTS - FREE TEXT/NARRATIVE: HISTORY AND PHYSICAL: History of present illness: Patient is a 34-year-old female who presents emergency room today with concern of dizziness and feeling light-headed that started last night. Patient states that her symptoms are worse when she stands up and she feels like her heart is racing at times. Patient states that she was recently increased on her dose of phentermine approximately 2 weeks ago. Patient states in the past she has had similar issues with phentermine when adjusting doses and states her symptoms today do feel similar to when her issues of phentermine were prior. Patient states she came to the emergency room because she was concerned with her heart rate being fast and the sensation of being lightheaded. Patient denies any syncope. Patient denies any head injury or trauma. Patient states she has a history of type 2 diabetes on oral medications but denies any other health history. Patient denies fever, chills, chest pain, shortness of breath, or cough. Denies headache, neck stiff ness, change in vision, syncope. Denies nausea, vomiting, abdominal pain, diarrhea, constipation, or dysuria. Has not noted any blood in urine or stool. Patient has been eating and drinking appropriately. Review of systems: As per history of present illness and below otherwise all systems reviewed and negative. Past medical history: As per history of present illness and as reviewed below otherwise noncontributory. Surgical history: As per history of present illness and as reviewed below otherwise noncontributory. Social history: See social history for further information Family history: As per history of present illness and as reviewed below otherwise noncontributory. Physical exam: General: Patient is alert, oriented, and in no acute distress. Patient laying comfortably on exam table. Vitals stable and reviewed by me. HEENT: Atraumatic, normocephalic, pupils equal and reactive bilaterally, negative for conjunctival pallor or scleral icterus, mucous membranes moist, TMs normal bilaterally, throat clear, neck supple, nontender, trachea midline. No drooling or trismus noted. No meningeal signs. No hot potato voice noted. Lungs: Clear to auscultation, breath sounds equal bilaterally, chest nontender. Heart: S1S2, regular rate and rhythm without overt murmur Abdomen: Soft, nondistended, nontender. Negative for masses or hepatosplenomegaly. Negative for costovertebral tenderness. Pelvis: Stable nontender. Genitourinary: Deferred. Rectal: Deferred. Skin: Intact, warm, dry. No lesions or rashes noted. Extremities: Atraumatic, negative for cords or calf pain. Neurovascular unremarkable. Neuro: Awake, alert, oriented. Cranial nerves II through XII unremarkable. Cerebellum unremarkable. Motor and sensory unremarkable throughout. Exam nonfocal. Notes: Upon reevaluation, patient expresses improvement of symptoms today in the ED. Strict return precautions were thoroughly discussed with patient. Discussed importance for follow-up with a primary care provider and for potential reevaluation of phentermine dosing. Voices understanding and is agreeable to plan of care. Denies any further questions or concerns at this time. Diagnostics: EKG, CBC, CMP, UA, Serum hcg, orthostatic vitals, Trop, CXR Therapeutics: NS Prescription: Fluconazole Impression: Dizziness, improved Candidal vaginitis Plan: 1. Encourage small frequent sips of fluid to prevent dehydration. 2. Follow-up with your primary care provider as discussed. Return to the ED as needed and as discussed. 3. Take medication as prescribed. Definitive disposition and diagnosis as appropriate pending reevaluation and review of above. Chest Pain Score (Numeric/FACES): 3 - Related Data Allergies Allergy/AdvReac Type Severity Reaction Status Date / Time cephalexin monohydrate Allergy Rash Verified 02/09/20 10:48 [From Keflex] Milk Containing Products Allergy Diarrhea Verified 02/09/20 10:48 Penicillins Allergy Diarrhea Verified 02/09/20 10:48 sulfamethoxazole Allergy Rash Verified 02/09/20 10:48 [From Bactrim] trimethoprim [From Bactrim] Allergy Rash Verified 02/09/20 10:48 Home Meds: Home Meds metFORMIN [metFORMIN XR] 1,250 mg PO DAILY 05/21/13 [History] Phentermine/Topiramate [Qsymia 3.75 mg-23 mg Capsule] 1 each PO DAILY 02/24/19 [History] Fluconazole 150 mg PO DAILY #1 tablet 02/09/20 [Rx] Past Medical History - Past Health History Medical/Surgical History: Denies Medical/Surgical History HEENT History: Reports: None Cardiovascular History: Reports: Hypertension Respiratory History: Reports: None Gastrointestinal History: Reports: None Genitourinary History: Reports: Other (See Below) Other Genitourinary History: ovarian cysts, bilateral UNIVERSITY ADMINISTRATOR History: Reports: Other (See Below) Other UNIVERSITY ADMINISTRATOR History: ovarian cysts, bilateral 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 History: Reports: Fracture, Other (See Below) Other 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 History: fx R ankle - no sx Neurological History: Reports: None Psychiatric History: Reports: Anxiety, Depression Endocrine/Metabolic History: Reports: Diabetes, Type II Hematologic History: Reports: None Immunologic History: Reports: None Oncologic (Cancer) History: Reports: None Dermatologic History: Reports: None - Infectious Disease History Infectious Disease History: Reports: Chicken Pox, Shingles Other Infectious Disease History: childhood - Past Surgical History Head Surgeries/Procedures: Reports: None HEENT Surgical History: Reports: Adenoidectomy, Tonsillectomy Cardiovascular Surgical History: Reports: None GI Surgical History: Reports: Cholecystectomy, Hernia Repair/Other Female Surgical History: Reports: None Endocrine Surgical History: Reports: None 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 Surgical History: Reports: None Other 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 Surgeries/Procedures:: Right meniscus repair Social & Family History - Family History Family Medical History: No Pertinent Family History Cardiac: Reports: CAD - Caffeine Use Caffeine Use: Reports: Coffee, Soda ED ROS GENERAL - Review of Systems Review Of Systems: Comprehensive ROS is negative, except as noted in HPI. ED EXAM, GENERAL - Physical Exam Exam: See Below (see dictation) Course - Vital Signs Last Recorded V/S: Last Vital Signs Temp 98.4 F 02/09/20 10:50 Pulse 84 02/09/20 11:23 Resp 18 02/09/20 10:50 BP 113/79 02/09/20 11:23 Pulse Ox 96 02/09/20 10:50 Orthostatic Blood Pressure [ 109/73 Standing] Orthostatic Blood Pressure [ 127/66 Sitting] Orthostatic Blood Pressure [ 127/79 Supine] - Orders/Labs/Meds Orders: Active Orders 24 hr Category Date Time Status Cardiac Monitoring [RC] . DIRECTED Care 02/09/20 10:57 Active Orthostatic Vital Signs [RC] ASDIRECTED Care 02/09/20 10:58 Active Labs: Laboratory Tests 02/09/20 02/09/20 02/09/20 Range/Units 10:48 10:48 10:48 WBC 10.84 (4.0-11.0) K/uL RBC 4.64 (4.30-5.90) M/uL Hgb 14.7 (12.0-16.0) g/dL Hct 44.9 (36.0-46.0) % MCV 96.8 (80.0-98.0) fL MCH 31.7 (27.0-32.0) pg MCHC 32.7 (31.0-37.0) g/dL RDW Std Deviation 45.8 (28.0-62.0) fl RDW Coeff of Tan[place] 13 (11.0-15.0) % Plt Count 429 H (150-400) K/uL MPV 9.30 (7.40-12.00) fL Neut % (Auto) 56.6 (48.0-80.0) % Lymph % (Auto) 34.4 (16.0-40.0) % [place] % (Auto) 7.5 (0.0-15.0) % Eos % (Auto) 1.2 (0.0-7.0) % Baso % (Auto) 0.3 (0.0-1.5) % Neut # (Auto) 6.1 H (1.4-5.7) K/uL Lymph # (Auto) 3.7 H (0.6-2.4) K/uL [place] # (Auto) 0.8 (0.0-0.8) K/uL Eos # (Auto) 0.1 (0.0-0.7) K/uL Baso # (Auto) 0.0 (0.0-0.1) K/uL Nucleated RBC % 0.0 /100WBC Nucleated RBCs # 0 K/uL Sodium 137 (136-145) mmol/L Potassium 3.8 (3.5-5.1) mmol/L Chloride 99 (98-107) mmol/L Carbon Dioxide 22.5 (21.0-32.0) mmol/L BUN 18 (7.0-18.0) mg/dL Creatinine 1.3 H (0.6-1.0) mg/dL Est Cr Clr Drug Dosing 42.97 mL/min Estimated GFR (MDRD) 46.3 ml/min Glucose 181 H (74-106) mg/dL Calcium 9.3 (8.5-10.1) mg/dL Total Bilirubin 0.4 (0.2-1.0) mg/dL AST 21 (15-37) IU/L ALT 24 (14-63) IU/L Alkaline Phosphatase 71 (46-116) U/L Troponin I < 0.050 (0.000-0.056) ng/mL Total Protein 8.3 H (6.4-8.2) g/dL Albumin 3.4 (3.4-5.0) g/dL Globulin 4.9 H (2.6-4.0) g/dL Albumin/Globulin Ratio 0.7 L (0.9-1.6) HCG, Qual NEGATIVE (NEG) Urine Color Urine Appearance Urine pH (5.0-8.0) Ur Specific [place] (1.001-1.035) Urine Protein (NEGATIVE) mg/dL Urine Glucose (UA) (NEGATIVE) mg/dL Urine Ketones (NEGATIVE) mg/dL Urine Occult Blood (NEGATIVE) Urine Nitrite (NEGATIVE) Urine Bilirubin (NEGATIVE) Urine Urobilinogen (<2.0) EU/dL Ur Leukocyte Esterase (NEGATIVE) Urine RBC (0-2/HPF) Urine WBC (0-5/HPF) Ur Epithelial Cells (NONE-FEW) Urine Bacteria (NEGATIVE) Urine Yeast Urinalysis Comment 02/08/20 Range/Units 12:07 WBC (4.0-11.0) K/uL RBC (4.30-5.90) M/uL Hgb (12.0-16.0) g/dL Hct (36.0-46.0) % MCV (80.0-98.0) fL MCH (27.0-32.0) pg MCHC (31.0-37.0) g/dL RDW Std Deviation (28.0-62.0) fl RDW Coeff of [place] (11.0-15.0) % Plt Count (150-400) K/uL MPV (7.40-12.00) fL Neut % (Auto) (48.0-80.0) % Lymph % (Auto) (16.0-40.0) % [place] % (Auto) (0.0-15.0) % Eos % (Auto) (0.0-7.0) % Baso % (Auto) (0.0-1.5) % Neut # (Auto) (1.4-5.7) K/uL Lymph # (Auto) (0.6-2.4) K/uL [place] # (Auto) (0.0-0.8) K/uL Eos # (Auto) (0.0-0.7) K/uL Baso # (Auto) (0.0-0.1) K/uL Nucleated RBC % /100WBC Nucleated RBCs # K/uL Sodium (136-145) mmol/L Potassium (3.5-5.1) mmol/L Chloride (98-107) mmol/L Carbon Dioxide (21.0-32.0) mmol/L BUN (7.0-18.0) mg/dL Creatinine (0.6-1.0) mg/dL Est Cr Clr Drug Dosing mL/min Estimated GFR (MDRD) ml/min Glucose (74-106) mg/dL Calcium (8.5-10.1) mg/dL Total Bilirubin (0.2-1.0) mg/dL AST (15-37) IU/L ALT (14-63) IU/L Alkaline Phosphatase (46-116) U/L Troponin I (0.000-0.056) ng/mL Total Protein (6.4-8.2) g/dL Albumin (3.4-5.0) g/dL Globulin (2.6-4.0) g/dL Albumin/Globulin Ratio (0.9-1.6) HCG, Qual (NEG) Urine Color YELLOW Urine Appearance CLEAR Urine pH 5.0 (5.0-8.0) Ur Specific [place] 1.025 (1.001-1.035) Urine Protein NEGATIVE (NEGATIVE) mg/dL Urine Glucose (UA) >=1000 (NEGATIVE) mg/dL Urine Ketones NEGATIVE (NEGATIVE) mg/dL Urine Occult Blood MODERATE H (NEGATIVE) Urine Nitrite NEGATIVE (NEGATIVE) Urine Bilirubin NEGATIVE (NEGATIVE) Urine Urobilinogen 0.2 (<2.0) EU/dL Ur Leukocyte Esterase NEGATIVE (NEGATIVE) Urine RBC 3-5 (0-2/HPF) Urine WBC 0-2 (0-5/HPF) Ur Epithelial Cells MODERATE (NONE-FEW) Urine Bacteria FEW (NEGATIVE) Urine Yeast OCCASIONAL Urinalysis Comment Meds: Medications Discontinued Medications Generic Name Dose Route Start Last Admin Trade Name Iaz PRN Reason Stop Dose Admin Sodium Chloride 1,000 mls @ 999 mls/hr 02/09/20 10:57 02/09/20 11:05 Normal Saline IV 02/09/20 11:57 999 mls/hr BOLUS ONE Administration Departure - Departure Time of Disposition: 12:29 Disposition: Home, Self-Care 01 Clinical Impression: Dizziness, Candidal vaginitis - Discharge Information Prescriptions: Fluconazole 150 mg PO DAILY #1 tablet Referrals: Shanice Terrazas MD [Primary Care Provider] - Forms: ED Department Discharge Additional Instructions: The following information is given to patients seen in the emergency department who are being discharged to home. This information is to outline your options for follow-up care. We provide all patients seen in our emergency department with a follow-up referral. The need for follow-up, as well as the timing and circumstances, are variable depending upon the specifics of your emergency department visit. If you don't have a primary care physician on staff, we will provide you with a referral. We always advise you to contact your personal physician following an emergency department visit to inform them of the circumstance of the visit and for follow-up with them and/or the need for any referrals to a consulting s pecialist. The emergency department will also refer you to a specialist when appropriate. This referral assures that you have the opportunity for follow-up care with a specialist. All of these measure are taken in an effort to provide you with optimal care, which includes your follow-up. Under all circumstances we always encourage you to contact your private physician who remains a resource for coordinating your care. When calling for follow-up care, please make the office aware that this follow-up is from your recent emergency room visit. If for any reason you are refused follow-up, please contact the [facility] Emergency Department at and asked to speak to the emergency department charge nurse. [facility] [address] [place] [id number] [address] 1. Encourage small frequent sips of fluid to prevent dehydration. 2. Follow-up with your primary care provider as discussed. Return to the ED as needed and as discussed. 3. Take medication as prescribed. Sepsis Event Note (ED) - Evaluation Sepsis Screening Result: No Definite Risk - Focused Exam Vital Signs: Vital Signs Temp Pulse Resp BP Pulse Ox 02/09/20 11:23 84 113/79 02/09/20 10:50 98.4 F 97 18 134/79 96 - My Orders Last 24 Hours: My Active Orders 02/09/20 10:57 Cardiac Monitoring [RC] . DIRECTED 02/09/20 10:58 Orthostatic Vital Signs [RC] ASDIRECTED - Assessment/Plan Last 24 Hours: My Active Orders 02/09/20 10:57 Cardiac Monitoring [RC] . DIRECTED 02/09/20 10:58 Orthostatic Vital Signs [RC] ASDIRECTED
[2020-02-09 11:30] LABS: BLOOD UREA NITROGEN,BUN 18 mg/dL (7.0-18.0); CARBON DIOXIDE,CO2 22.5 mmol/L (21.0-32.0); CHLORIDE,CL 99 mmol/L (98-107); GLUCOSE RANDOM 181 mg/dL (74-106); POTASSIUM,K 3.8 mmol/L (3.5-5.1); SODIUM,NA 137 mmol/L (136-145)
--- NOTE | 2020-02-09 12:00 | CR ---
HISTORY: High blood pressure. TECHNIQUE: One view of the chest. COMPARISON: 07/07/2018. FINDINGS: Shallow breath. No focal lung infiltrate or pulmonary edema. No pneumothorax or pleural effusion. Cardiac size and pulmonary vasculature within normal limits. IMPRESSION: 1. Shallow breath. 2. No acute disease. Dictated by Marco Antonio Moura MD @ 02/09/2020 11:59:34 AM Dictated by: Marco Antonio Moura MD @ 02/09/2020 11:59:40 (Electronically Signed)
[2020-02-09 15:08] VITALS: BP 116/67; PULSE 93
== END 2020-02-09 12:55 | disposition home or self-care (01) ==
LOC: MW.ED 10:43
DX: R42 Dizziness and giddiness (principal); B37.3 Candidiasis of vulva and vagina; I10 Essential (primary) hypertension; E11.9 Type 2 diabetes mellitus without complications; Z88.1 Allergy status to other antibiotic agents; Z91.011 Allergy to milk products; Z88.0 Allergy status to penicillin; Z88.2 Allergy status to sulfonamides; Z79.899 Other long term (current) drug therapy
CPT/HCPCS: 36415; 71045; 80053; 81001; 84484; 84703; 85025; 93005; 99285; J7030; 93010; 99284

== ENCOUNTER 2020-04-20 17:33 | Emergency (ER) | payer BC ==
[2020-04-20] MEDS ORDERED: Sodium Chloride 0.9% 10 ML Syringe FLUSH PRN (17:44)
[2020-04-20] MEDS ORDERED: Sodium Chloride 0.9% 2.5 ML Syringe FLUSH PRN (17:44)
[2020-04-20] MEDS ORDERED: Sodium Chloride 0.9% 1,000 ML IV SCH (17:45)
--- NOTE | 2020-04-20 18:40 | EDM.PDOC ---
<SrikanthSolo cazares - Last Filed: 04/20/20 18:34> ED HPI GENERAL MEDICAL PROBLEM - General Chief Complaint: Diabetic Complaint Stated Complaint: HIGH BLOOD SUGAR Time Seen by Provider: 04/20/20 17:44 - History of Present Illness INITIAL COMMENTS - FREE TEXT/NARRATIVE: Patient is a 35-year-old female with a history of hypertension and diabetes controlled on oral medication not on insulin who is presenting with generalized fatigue right lateral side discomfort and hyperglycemia. Patient states that last night she had some breaded chicken fingers and rice. When she woke up this morning she felt very tired and so went back to bed after her went to work. She felt quite fatigued throughout the day and checked her blood sugar and it was nearly 400. She has never had trouble with DKA she has had one other episode of very high blood sugars in the past. She denies hematuria or dysuria she denies polyuria she reports dry mouth but denies abdominal pain or vomiting. She denies vaginal bleeding or discharge. She denies fevers chills or cough. She reports that right lateral rib discomfort is a constant moderate ache. No radiation or other associated symptoms. abdomen Pain Score (Numeric/FACES): 5 - Related Data Allergies Allergy/AdvReac Type Severity Reaction Status Date / Time cephalexin monohydrate Allergy Rash Verified 04/20/20 18:10 [From Keflex] Milk Containing Products Allergy Diarrhea Verified 04/20/20 18:10 Penicillins Allergy Diarrhea Verified 04/20/20 18:10 sulfamethoxazole Allergy Rash Verified 04/20/20 18:10 [From Bactrim] trimethoprim [From Bactrim] Allergy Rash Verified 04/20/20 18:10 Home Meds: Home Meds metFORMIN [metFORMIN XR] 1,250 mg PO DAILY 05/21/13 [History] Phentermine/Topiramate [Qsymia 3.75 mg-23 mg Capsule] 1 each PO DAILY 02/24/19 [History] Fluconazole 150 mg PO DAILY #1 tablet 02/09/20 [Rx] Past Medical History - Past Health History Medical/Surgical History: Denies Medical/Surgical History HEENT History: Reports: None Cardiovascular History: Reports: Hypertension Respiratory History: Reports: None Gastrointestinal History: Reports: None Genitourinary History: Reports: Other (See Below) Other Genitourinary History: ovarian cysts, bilateral ALLEY TENDER History: Reports: Other (See Below) Other ALLEY TENDER History: ovarian cysts, bilateral 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 History: Reports: Fracture, Other (See Below) Other 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 History: fx R ankle - no sx Neurological History: Reports: None Psychiatric History: Reports: Anxiety, Depression Endocrine/Metabolic History: Reports: Diabetes, Type II Hematologic History: Reports: None Immunologic History: Reports: None Oncologic (Cancer) History: Reports: None Dermatologic History: Reports: None - Infectious Disease History Infectious Disease History: Reports: Chicken Pox, Shingles Other Infectious Disease History: childhood - Past Surgical History Head Surgeries/Procedures: Reports: None HEENT Surgical History: Reports: Adenoidectomy, Tonsillectomy Cardiovascular Surgical History: Reports: None GI Surgical History: Reports: Cholecystectomy, Hernia Repair/Other Female Surgical History: Reports: None Endocrine Surgical History: Reports: None 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 Surgical History: Reports: None Other 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 Surgeries/Procedures:: Right meniscus repair Social & Family History - Family History Family Medical History: No Pertinent Family History Cardiac: Reports: CAD - Tobacco Use Tobacco Use Status *Q: Never Tobacco User - Caffeine Use Caffeine Use: Reports: Coffee, Soda - Recreational Drug Use Recreational Drug Use: No ED ROS GENERAL - Review of Systems Review Of Systems: See Below Free Text/Narrative/Comment: General: No fever. Skin: No rash. Eyes: No vision problems. ENT: No sore throat. Neck: No neck stiffness. Respiratory: No shortness of breath. Cardiac: Per HPI Gastrointestinal: No nausea, vomiting or abdominal pain. Urinary: No dysuria. 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: No myalgias/arthralgias. Neurologic: No headache. ED EXAM GENERAL NO PERIP PULSE - Physical Exam Exam: See Below Text/Narrative:: General Appearance: No acute distress, appears comfortable Skin: No rash HEENT: Normocephalic/atraumatic, sclera anicteric, mucous membranes moist Neck: Normal range of motion Chest and Lungs: Bilateral breath sounds, clear to auscultation, no chest wall tenderness Cardiovascular: Regular rate and rhythm, no murmur Abdomen: Soft, non-tender Back: Normal, no midline tenderness no step-offs or deformities 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: No edema or tenderness Neurologic: Awake, alert, no obvious deficits, moving all extremities Psychiatric: Appropriate, cooperative Departure - Departure Disposition: Home, Self-Care 01 Clinical Impression: Hyperglycemia - Discharge Information Instructions: Hyperglycemia, Type 2 Diabetes Mellitus, Diagnosis, Adult, [id number] Referrals: PCP,None [Primary Care Provider] - Forms: ED Department Discharge Additional Instructions: You were evaluated today on an emergent basis. At this time it is uncertain as what is causing the fatigue that you are experiencing however this could be the beginning of a viral infection. I recommend continued p.o. intake including fluids and a bland diet for the next few days. I do recommend that you use Tylenol and Motrin. Given your hyperglycemia which is increased glucose I do recommend that you follow-up with your primary care physician for further evaluation and treatment. If you have any worsening symptoms such as chest pain, shortness of breath, vomiting, inability to eat please return to the [facility]. [facility] - [facility] [address] [place], [place] [id number] [place] [address] The patient is informed of any results of their evaluation and diagnostic workup and all questions are answered. They are given discharge instructions and return precautions. The patient is stable for discharge. The patient states they understand and agree with the plan and that they will return if their symptoms get worse or if they have any new concerns. The following information is given to patients seen in the emergency department who are being discharged to home. This information is to outline your options for follow-up care. We provide all patients seen in our emergency department with a follow-up referral. The need for follow-up, as well as the timing and circumstances, are variable depending upon the specifics of your emergency department visit. If you don't have a primary care physician on staff, we will provide you with a referral. We always advise you to contact your personal physician following an emergency department visit to inform them of the circumstance of the visit and for follow-up with them and/or the need for any referrals to a consulting specialist. The emergency department will also refer you to a specialist when appropriate. This referral assures that you have the opportunity for follow-up care with a specialist. All of these measure are taken in an effort to provide you with optimal care, which includes your follow-up. Under all circumstances we always encourage you to contact your private physician who remains a resource for coordinating your care. When calling for follow-up care, please make the office aware that this follow-up is from your recent emergency room visit. If for any reason you are refused follow-up, please contact the [facility] Emergency Department at and asked to speak to the emergency department charge nurse. Sepsis Event Note (ED) - Evaluation Sepsis Screening Result: No Definite Risk - Assessment/Plan Assessment:: 35-year-old female presenting with signs and symptoms that are consistent with hyperglycemia. She does have some right chest ache no cough or fever but pneumonia is possible and chest x-ray pending felt very unlikely to be ACS it is not exertional is not left-sided patient relatively low risk for ACS beyond her hypertension and diabetes. Given these factors EKG and troponin ordered. No focal abdominal pain that would suggest diverticulitis or appendicitis no symptoms of UTI but certainly UTI is possible patient is without vaginal discharge that would suggest yeast infection. The pain is right lateral rib rather than right flank and so renal colic is felt unlikely. CBC CMP lactate VBG ketones U urinalysis all ordered to exclude DKA and other acidosis. 2 L of normal saline has been ordered for hydration. If blood sugar is exceptionally high and Accu-Chek could consider single IV dose of insulin. However, given her history would not start her on insulin from the ER. Patient has follow-up with her primary care doctor scheduled for April [id number]: Results and final disposition signed out to Dr. Caban. <Kamar Caban - Last Filed: 04/21/20 06:50> ED HPI GENERAL MEDICAL PROBLEM - History of Present Illness INITIAL COMMENTS - FREE TEXT/NARRATIVE: Patient was signed out to me by Dr. Duke pending labs and reevaluation at 7 PM I did reevaluate the patient and patient was resting comfortably with normal vital signs. She had no new complaints. Laboratory: CBC is unremarkable. CMP reveals hyponatremia 134, mild metabolic acidosis with bicarbonate of 20.4. No anion gap. There is hyperglycemia at 298, hypocalcemia 8.3 and hypoalbuminemia at 2.6. Lactic acid was 2.3 ketones were negative. Urinalysis was a clean catch and was negative for leukocyte esterase, negative for nitrites, and negative for blood. Interpretation: Negative. The radiological images were viewed by myself along with reading the report from the radiologist. Chest x-ray does not reveal any acute cardiopulmonary process. Patient was able to tolerate p.o. At this time we will obtain a repeat lactic acid and a repeat [id number] glucose. Lactic acid had down trended to 2.1 and repeat [id number] glucose was 242. I did have a discussion with the patient at this time that she is hyperglycemic however her laboratory analysis and work-up was negative. I did discuss with her at this time that is important for her to follow-up with her primary care physician for continued diabetic management. I did discuss that her fatigue is likely secondary to a viral syndrome and that she should use Tylenol and Motrin for pain relief if she continues to have any pain. She is to return for any new or worsening symptoms such as vomiting, abdominal pain, chest pain or shortness of breath. She was amenable to discharge at this time and had no further questions. DISPOSITION: The patient was discharged home in stable condition. The patient will follow up with primary care physician within 5 days CONDITION: Fair PROCEDURES: None FINAL IMPRESSION(S)/DIAGNOSES: 1. Acute fatigue likely secondary to viral syndrome 2. Acute hyperglycemia likely secondary #1 Kamar Caban M.D. Course - Vital Signs Last Recorded V/S: Last Vital Signs Temp 36.3 C 04/20/20 18:06 Pulse 69 04/20/20 21:05 Resp 17 04/20/20 18:06 BP 123/72 04/20/20 21:05 Pulse Ox 98 04/20/20 21:05 - Orders/Labs/Meds Orders: Active Orders 24 hr Category Date Time Status Saline Lock Insert [OM.PC] Stat Oth 04/20/20 17:44 Ordered Labs: Laboratory Tests 04/20/20 04/20/20 04/20/20 Range/Units 17:30 18:27 18:27 WBC (4.0-11.0) K/uL RBC (4.30-5.90) M/uL Hgb (12.0-16.0) g/dL Hct (36.0-46.0) % MCV (80.0-98.0) fL MCH (27.0-32.0) pg MCHC (31.0-37.0) g/dL RDW Std Deviation (28.0-62.0) fl RDW Coeff of [place] (11.0-15.0) % Plt Count (150-400) K/uL MPV (7.40-12.00) fL Neut % (Auto) (48.0-80.0) % Lymph % (Auto) (16.0-40.0) % Person % (Auto) (0.0-15.0) % Eos % (Auto) (0.0-7.0) % Baso % (Auto) (0.0-1.5) % Neut # (Auto) (1.4-5.7) K/uL Lymph # (Auto) (0.6-2.4) K/uL Person # (Auto) (0.0-0.8) K/uL Eos # (Auto) (0.0-0.7) K/uL Baso # (Auto) (0.0-0.1) K/uL Nucleated RBC % /100WBC Nucleated RBCs # K/uL VBG pH (7.31-7.41) VBG pCO2 (35-45) mmHG VBG pO2 (30-40) mmHG VBG HCO3 (22-30) mEq/L VBG Total CO2 (41-51) mmol/L VBG Base Excess (-3.0-3.0) Lactate 2.3 H* (0.20-2.00) mmol/L Sodium (136-145) mmol/L Potassium (3.5-5.1) mmol/L Chloride (98-107) mmol/L Carbon Dioxide (21.0-32.0) mmol/L BUN (7.0-18.0) mg/dL Creatinine (0.6-1.0) mg/dL Est Cr Clr Drug Dosing mL/min Estimated GFR (MDRD) ml/min Glucose (74-106) mg/dL POC Glucose (60-110) mg/dL Calcium (8.5-10.1) mg/dL Total Bilirubin (0.2-1.0) mg/dL AST (15-37) IU/L ALT (14-63) IU/L Alkaline Phosphatase (46-116) U/L Troponin I (0.000-0.056) ng/mL Total Protein (6.4-8.2) g/dL Albumin (3.4-5.0) g/dL Globulin (2.6-4.0) g/dL Albumin/Globulin Ratio (0.9-1.6) Urine Color YELLOW Urine Appearance CLEAR Urine pH 5.0 (5.0-8.0) Ur Specific [place] 1.015 (1.001-1.035) Urine Protein NEGATIVE (NEGATIVE) mg/dL Urine Glucose (UA) >=1000 (NEGATIVE) mg/dL Urine Ketones NEGATIVE (NEGATIVE) mg/dL Urine Occult Blood NEGATIVE (NEGATIVE) Urine Nitrite NEGATIVE (NEGATIVE) Urine Bilirubin NEGATIVE (NEGATIVE) Urine Urobilinogen 0.2 (<2.0) EU/dL Ur Leukocyte Esterase NEGATIVE (NEGATIVE) Urine RBC 0-2 (0-2/HPF) Urine WBC 0-3 (0-5/HPF) Ur Epithelial Cells FEW (NONE-FEW) Urine Bacteria 2+ H (NEGATIVE) Urine HCG, Qual NEGATIVE (NEGATIVE) Ketones (NEG) 04/20/20 04/20/20 04/20/20 Range/Units 18:30 18:30 18:30 WBC 10.49 (4.0-11.0) K/uL RBC 3.96 L (4.30-5.90) M/uL Hgb 12.2 (12.0-16.0) g/dL Hct 38.1 (36.0-46.0) % MCV 96.2 (80.0-98.0) fL MCH 30.8 (27.0-32.0) pg MCHC 32.0 (31.0-37.0) g/dL RDW Std Deviation 45.4 (28.0-62.0) fl RDW Coeff of [place] 13 (11.0-15.0) % Plt Count 356 (150-400) K/uL MPV 9.40 (7.40-12.00) fL Neut % (Auto) 56.7 (48.0-80.0) % Lymph % (Auto) 34.1 (16.0-40.0) % Person % (Auto) 6.7 (0.0-15.0) % Eos % (Auto) 2.2 (0.0-7.0) % Baso % (Auto) 0.3 (0.0-1.5) % Neut # (Auto) 6.0 H (1.4-5.7) K/uL Lymph # (Auto) 3.6 H (0.6-2.4) K/uL Person # (Auto) 0.7 (0.0-0.8) K/uL Eos # (Auto) 0.2 (0.0-0.7) K/uL Baso # (Auto) 0.0 (0.0-0.1) K/uL Nucleated RBC % 0.0 /100WBC Nucleated RBCs # 0 K/uL VBG pH 7.41 (7.31-7.41) VBG pCO2 37 (35-45) mmHG VBG pO2 46 H (30-40) mmHG VBG HCO3 23 (22-30) mEq/L VBG Total CO2 21 L (41-51) mmol/L VBG Base Excess -1.2 (-3.0-3.0) Lactate (0.20-2.00) mmol/L Sodium 134 L (136-145) mmol/L Potassium 4.6 (3.5-5.1) mmol/L Chloride 101 (98-107) mmol/L Carbon Dioxide 20.4 L (21.0-32.0) mmol/L BUN 12 (7.0-18.0) mg/dL Creatinine 1.0 (0.6-1.0) mg/dL Est Cr Clr Drug Dosing 55.33 mL/min Estimated GFR (MDRD) > 60.0 ml/min Glucose 298 H (74-106) mg/dL POC Glucose (60-110) mg/dL Calcium 8.3 L (8.5-10.1) mg/dL Total Bilirubin 0.2 (0.2-1.0) mg/dL AST 9 L (15-37) IU/L ALT 15 (14-63) IU/L Alkaline Phosphatase 48 (46-116) U/L Troponin I (0.000-0.056) ng/mL Total Protein 6.5 (6.4-8.2) g/dL Albumin 2.6 L (3.4-5.0) g/dL Globulin 3.9 (2.6-4.0) g/dL Albumin/Globulin Ratio 0.7 L (0.9-1.6) Urine Color Urine Appearance Urine pH (5.0-8.0) Ur Specific [place] (1.001-1.035) Urine Protein (NEGATIVE) mg/dL Urine Glucose (UA) (NEGATIVE) mg/dL Urine Ketones (NEGATIVE) mg/dL Urine Occult Blood (NEGATIVE) Urine Nitrite (NEGATIVE) Urine Bilirubin (NEGATIVE) Urine Urobilinogen (<2.0) EU/dL Ur Leukocyte Esterase (NEGATIVE) Urine RBC (0-2/HPF) Urine WBC (0-5/HPF) Ur Epithelial Cells (NONE-FEW) Urine Bacteria (NEGATIVE) Urine HCG, Qual (NEGATIVE) Ketones (NEG) 04/20/20 04/20/20 04/20/20 Range/Units 18:30 18:30 18:52 WBC (4.0-11.0) K/uL RBC (4.30-5.90) M/uL Hgb (12.0-16.0) g/dL Hct (36.0-46.0) % MCV (80.0-98.0) fL MCH (27.0-32.0) pg MCHC (31.0-37.0) g/dL RDW Std Deviation (28.0-62.0) fl RDW Coeff of [place] (11.0-15.0) % Plt Count (150-400) K/uL MPV (7.40-12.00) fL Neut % (Auto) (48.0-80.0) % Lymph % (Auto) (16.0-40.0) % Person % (Auto) (0.0-15.0) % Eos % (Auto) (0.0-7.0) % Baso % (Auto) (0.0-1.5) % Neut # (Auto) (1.4-5.7) K/uL Lymph # (Auto) (0.6-2.4) K/uL Person # (Auto) (0.0-0.8) K/uL Eos # (Auto) (0.0-0.7) K/uL Baso # (Auto) (0.0-0.1) K/uL Nucleated RBC % /100WBC Nucleated RBCs # K/uL VBG pH (7.31-7.41) VBG pCO2 (35-45) mmHG VBG pO2 (30-40) mmHG VBG HCO3 (22-30) mEq/L VBG Total CO2 (41-51) mmol/L VBG Base Excess (-3.0-3.0) Lactate (0.20-2.00) mmol/L Sodium (136-145) mmol/L Potassium (3.5-5.1) mmol/L Chloride (98-107) mmol/L Carbon Dioxide (21.0-32.0) mmol/L BUN (7.0-18.0) mg/dL Creatinine (0.6-1.0) mg/dL Est Cr Clr Drug Dosing mL/min Estimated GFR (MDRD) ml/min Glucose (74-106) mg/dL POC Glucose 315 H (60-110) mg/dL Calcium (8.5-10.1) mg/dL Total Bilirubin (0.2-1.0) mg/dL AST (15-37) IU/L ALT (14-63) IU/L Alkaline Phosphatase (46-116) U/L Troponin I < 0.050 (0.000-0.056) ng/mL Total Protein (6.4-8.2) g/dL Albumin (3.4-5.0) g/dL Globulin (2.6-4.0) g/dL Albumin/Globulin Ratio (0.9-1.6) Urine Color Urine Appearance Urine pH (5.0-8.0) Ur Specific [place] (1.001-1.035) Urine Protein (NEGATIVE) mg/dL Urine Glucose (UA) (NEGATIVE) mg/dL Urine Ketones (NEGATIVE) mg/dL Urine Occult Blood (NEGATIVE) Urine Nitrite (NEGATIVE) Urine Bilirubin (NEGATIVE) Urine Urobilinogen (<2.0) EU/dL Ur Leukocyte Esterase (NEGATIVE) Urine RBC (0-2/HPF) Urine WBC (0-5/HPF) Ur Epithelial Cells (NONE-FEW) Urine Bacteria (NEGATIVE) Urine HCG, Qual (NEGATIVE) Ketones NEGATIVE (NEG) 04/20/20 04/20/20 Range/Units 20:12 20:30 WBC (4.0-11.0) K/uL RBC (4.30-5.90) M/uL Hgb (12.0-16.0) g/dL Hct (36.0-46.0) % MCV (80.0-98.0) fL MCH (27.0-32.0) pg MCHC (31.0-37.0) g/dL RDW Std Deviation (28.0-62.0) fl RDW Coeff of Tanmay (11.0-15.0) % Plt Count (150-400) K/uL MPV (7.40-12.00) fL Neut % (Auto) (48.0-80.0) % Lymph % (Auto) (16.0-40.0) % Person % (Auto) (0.0-15.0) % Eos % (Auto) (0.0-7.0) % Baso % (Auto) (0.0-1.5) % Neut # (Auto) (1.4-5.7) K/uL Lymph # (Auto) (0.6-2.4) K/uL Person # (Auto) (0.0-0.8) K/uL Eos # (Auto) (0.0-0.7) K/uL Baso # (Auto) (0.0-0.1) K/uL Nucleated RBC % /100WBC Nucleated RBCs # K/uL VBG pH (7.31-7.41) VBG pCO2 (35-45) mmHG VBG pO2 (30-40) mmHG VBG HCO3 (22-30) mEq/L VBG Total CO2 (41-51) mmol/L VBG Base Excess (-3.0-3.0) Lactate 2.1 H* (0.20-2.00) mmol/L Sodium (136-145) mmol/L Potassium (3.5-5.1) mmol/L Chloride (98-107) mmol/L Carbon Dioxide (21.0-32.0) mmol/L BUN (7.0-18.0) mg/dL Creatinine (0.6-1.0) mg/dL Est Cr Clr Drug Dosing mL/min Estimated GFR (MDRD) ml/min Glucose (74-106) mg/dL POC Glucose 242 H (60-110) mg/dL Calcium (8.5-10.1) mg/dL Total Bilirubin (0.2-1.0) mg/dL AST (15-37) IU/L ALT (14-63) IU/L Alkaline Phosphatase (46-116) U/L Troponin I (0.000-0.056) ng/mL Total Protein (6.4-8.2) g/dL Albumin (3.4-5.0) g/dL Globulin (2.6-4.0) g/dL Albumin/Globulin Ratio (0.9-1.6) Urine Color Urine Appearance Urine pH (5.0-8.0) Ur Specific [place] (1.001-1.035) Urine Protein (NEGATIVE) mg/dL Urine Glucose (UA) (NEGATIVE) mg/dL Urine Ketones (NEGATIVE) mg/dL Urine Occult Blood (NEGATIVE) Urine Nitrite (NEGATIVE) Urine Bilirubin (NEGATIVE) Urine Urobilinogen (<2.0) EU/dL Ur Leukocyte Esterase (NEGATIVE) Urine RBC (0-2/HPF) Urine WBC (0-5/HPF) Ur Epithelial Cells (NONE-FEW) Urine Bacteria (NEGATIVE) Urine HCG, Qual (NEGATIVE) Ketones (NEG) Meds: Medications Discontinued Medications Generic Name Dose Route Start Last Admin Trade Name Freq PRN Reason Stop Dose Admin Sodium Chloride 1,000 mls @ 999 mls/hr 04/20/20 17:45 04/20/20 18:57 Normal Saline IV 999 mls/hr BOLUS FRACISCO Administration Sodium Chloride 10 ml 04/20/20 17:44 04/20/20 18:57 Saline Flush FLUSH 10 ml ASDIRECTED PRN Administration Keep Vein Open Sodium Chloride 2.5 ml 04/20/20 17:44 04/20/20 18:57 Saline Flush FLUSH 2.5 ml ASDIRECTED PRN Administration Keep Vein Open Departure - Departure Time of Disposition: 21:04 Condition: Fair - Discharge Information *PRESCRIPTION DRUG MONITORING PROGRAM REVIEWED*: No *COPY OF PRESCRIPTION DRUG MONITORING REPORT IN PATIENT SIMI: No Sepsis Event Note (ED) - Focused Exam Vital Signs: Vital Signs Pulse BP Pulse Ox 04/20/20 21:05 69 123/72 98
[2020-04-20 19:33] LABS: BLOOD UREA NITROGEN,BUN 12 mg/dL (7.0-18.0); CARBON DIOXIDE,CO2 20.4 mmol/L (21.0-32.0); CHLORIDE,CL 101 mmol/L (98-107); GLUCOSE RANDOM 298 mg/dL (74-106); POTASSIUM,K 4.6 mmol/L (3.5-5.1); SODIUM,NA 134 mmol/L (136-145)
--- NOTE | 2020-04-20 20:13 | CR ---
INDICATION: Rib pain TECHNIQUE: Single view chest. FINDINGS: The lungs are clear. The heart, mediastinum and pulmonary vessels are of normal size. There is no evidence of pleural disease. No acute fractures seen. IMPRESSION: Negative chest. Dictated by Radha Aden MD @ Apr 20 2020 8:10PM Signed by Dr. Radha Aden @ Apr 20 2020 8:11PM
[2020-04-20 21:20] VITALS: BP 123/72; PULSE 69
--- NOTE | 2020-04-22 06:14 | PCM.EKG ---
#1 Interpretation EKG Date: 04/20/20 Time: 18:48 Rhythm: NSR Rate (Beats/Min): 68 [place]: Normal P-Wave: Present QRS: Normal ST-T: Normal QT: Normal Comparison: No Change (02/09/20) EKG Interpretation Comments: Sinus Rhythm
== END 2020-04-20 21:18 | disposition home or self-care (01) ==
LOC: MW.ED 17:33
DX: E11.65 Type 2 diabetes mellitus with hyperglycemia (principal); I10 Essential (primary) hypertension; E87.1 Hypo-osmolality and hyponatremia; E87.2 Acidosis; Z88.1 Allergy status to other antibiotic agents; Z91.011 Allergy to milk products; Z88.0 Allergy status to penicillin; Z88.2 Allergy status to sulfonamides; Z79.899 Other long term (current) drug therapy
CPT/HCPCS: 36415; 71045; 80053; 81001; 81025; 82009; 82803; 82962; 83605; 84484; 85025; 93005; 99285; J7030; 93010; 99284

== ENCOUNTER 2020-12-25 15:44 | Emergency (ER) | payer OTHER, BC ==
--- NOTE | 2020-12-25 18:08 | CR ---
Indication: Pain after injury Technique: Three views Comparison: None Findings: Bones: Alignment is normal. No fractures or bone lesions. Joint spaces: Unremarkable. Soft tissues: Minimal soft tissue swelling. Dictated by Major Garcia MD @ 12/25/2020 6:06:58 PM (Electronically Signed)
[2020-12-25 19:30] VITALS: BP 150/92; PULSE 109
[2020-12-25] MEDS ORDERED: Ibuprofen 600 MG Tab PO ONE (19:33)
--- NOTE | 2020-12-25 19:37 | EDM.PDOC ---
ED HPI GENERAL MEDICAL PROBLEM - General Chief Complaint: Upper Extremity Injury/Pain Stated Complaint: SMASHED HAND AT WORK Time Seen by Provider: 12/25/20 19:31 Source of Information: Reports: Patient History Limitations: Reports: No Limitations - History of Present Illness INITIAL COMMENTS - FREE TEXT/NARRATIVE: 35-year-old female no relevant past medical history presents for hand crush injury. Patient was working and got her hand caught between a cart full of heavy merchandise and a wall. She notes pain to the hand and pain with moving her digits. She denies any other injuries. Left Hand Pain Score (Numeric/FACES): 6 - Related Data Allergies Allergy/AdvReac Type Severity Reaction Status Date / Time cephalexin monohydrate Allergy Rash Verified 12/25/20 16:43 [From Keflex] Milk Containing Products Allergy Diarrhea Verified 12/25/20 16:43 Penicillins Allergy Diarrhea Verified 12/25/20 16:43 sulfamethoxazole Allergy Rash Verified 12/25/20 16:43 [From Bactrim] trimethoprim [From Bactrim] Allergy Rash Verified 12/25/20 16:43 Home Meds: Home Meds metFORMIN [metFORMIN XR] 1,250 mg PO DAILY 05/21/13 [History] Phentermine/Topiramate [Qsymia 3.75 mg-23 mg Capsule] 1 each PO DAILY 02/24/19 [History] Fluconazole 150 mg PO DAILY #1 tablet 02/09/20 [Rx] Ibuprofen [Motrin] 600 mg PO Q6H PRN #30 tab 12/25/20 [Rx] Past Medical History - Past Health History Medical/Surgical History: Denies Medical/Surgical History HEENT History: Reports: None Cardiovascular History: Reports: Hypertension Respiratory History: Reports: None Gastrointestinal History: Reports: None Genitourinary History: Reports: Other (See Below) Other Genitourinary History: ovarian cysts, bilateral 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: Other (See Below) Other SUPERVISOR OPERATIONS History: ovarian cysts, bilateral 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 History: Reports: Fracture, Other (See Below) Other 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 History: fx R ankle - no sx Neurological History: Reports: None Psychiatric History: Reports: Anxiety, Depression Endocrine/Metabolic History: Reports: Diabetes, Type II Hematologic History: Reports: None Immunologic History: Reports: None Oncologic (Cancer) History: Reports: None Dermatologic History: Reports: None - Infectious Disease History Infectious Disease History: Reports: Chicken Pox, Shingles Other Infectious Disease History: childhood - Past Surgical History Head Surgeries/Procedures: Reports: None HEENT Surgical History: Reports: Adenoidectomy, Tonsillectomy Cardiovascular Surgical History: Reports: None GI Surgical History: Reports: Cholecystectomy, Hernia Repair/Other Female Surgical History: Reports: None Endocrine Surgical History: Reports: None 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 Surgical History: Reports: None Other 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 Surgeries/Procedures:: Right meniscus repair Social & Family History - Family History Family Medical History: No Pertinent Family History Cardiac: Reports: CAD - Caffeine Use Caffeine Use: Reports: Coffee, Soda Review of Systems - Review of Systems Review Of Systems: Comprehensive ROS is negative, except as noted in HPI. 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 Will discharge with a cock-up splint for comfort, anti-inflammatory, instructions for ice pack and raising the extremity when at rest. Departure - Departure Time of Disposition: 19:36 Disposition: Home, Self-Care 01 Condition: Good Clinical Impression: Crushing injury of hand, left Qualifiers: Encounter type: initial encounter Qualified Code(s): S67.22XA - Crushing injury of left hand, initial encounter - Discharge Information Prescriptions: Ibuprofen [Motrin] 600 mg PO Q6H PRN #30 tab PRN Reason: Pain Instructions: Crush Injury of the Hand, [id number] Referrals: Shanice Terrazas MD [Primary Care Provider] - Additional Instructions: I sent Motrin to your pharmacy. You can use ice packs for the next few days to help with swelling. You should also raise your hand above the level of your heart when you are at rest to help with swelling. The following information is given to patients seen in the emergency department who are being discharged to home. This information is to outline your options for follow-up care. We provide all patients seen in our emergency department with a follow-up referral. The need for follow-up, as well as the timing and circumstances, are variable depending upon the specifics of your emergency department visit. If you don't have a primary care physician on staff, we will provide you with a referral. We always advise you to contact your personal physician following an emergency department visit to inform them of the circumstance of the visit and for follow-up with them and/or the need for any referrals to a consulting specialist. The emergency department will also refer you to a specialist when appropriate. This referral assures that you have the opportunity for follow-up care with a specialist. All of these measure are taken in an effort to provide you with optimal care, which includes your follow-up. Under all circumstances we always encourage you to contact your private physician who remains a resource for coordinating your care. When calling for follow-up care, please make the office aware that this follow-up is from your recent emergency room visit. If for any reason you are refused follow-up, please contact the [facility] Emergency Department at and asked to speak to the emergency department charge nurse. Please follow up with your primary care physician. If you do not have a primary care physician, see below: [facility] [address] [place] [id number] [id number] [facility] [address] [place] [id number] Sepsis Event Note (ED) - Evaluation Sepsis Screening Result: No Definite Risk - Focused Exam Vital Signs: Vital Signs Temp Pulse Resp BP Pulse Ox 12/25/20 19:29 97.7 F 109 H 18 150/92 H 95 12/25/20 16:39 105 H 16 164/93 H 95 - My Orders Last 24 Hours: My Active Orders 12/25/20 19:33 Ibuprofen [Motrin] 600 mg PO ONETIME ONE - Assessment/Plan Last 24 Hours: My Active Orders 12/25/20 19:33 Ibuprofen [Motrin] 600 mg PO ONETIME ONE
== END 2020-12-25 19:49 | disposition home or self-care (01) ==
LOC: MW.ED 15:44
DX: S67.22XA Crushing injury of left hand, initial encounter (principal); I10 Essential (primary) hypertension; E11.9 Type 2 diabetes mellitus without complications; Z88.1 Allergy status to other antibiotic agents; Z91.011 Allergy to milk products; Z88.0 Allergy status to penicillin; Z88.2 Allergy status to sulfonamides; Z79.84 Long term (current) use of oral hypoglycemic drugs; Z79.899 Other long term (current) drug therapy; W23.0XXA Caught, crushed, jammed, or pinched between moving objects, initial encounter; Y92.89 Other specified places as the place of occurrence of the external cause; Y99.0 Civilian activity done for income or pay
CPT/HCPCS: 73130; 99283; A9270

== ENCOUNTER 2021-04-12 07:24 | Emergency (ER) | payer BC, OTHER ==
[2021-04-12] MEDS: Ketorolac 30 MG/ML SDV IVPUSH ONE (08:03)
[2021-04-12] MEDS: Aspirin 81 MG Tab.Chew PO ONE (08:03)
[2021-04-12 08:24] LABS: BLOOD UREA NITROGEN,BUN 9 mg/dL (7.0-18.0); CARBON DIOXIDE,CO2 20.8 mmol/L (21.0-32.0); CHLORIDE,CL 101 mmol/L (98-107); GLUCOSE RANDOM 237 mg/dL (74-106); POTASSIUM,K 4.4 mmol/L (3.5-5.1); SODIUM,NA 134 mmol/L (136-145)
[2021-04-12 09:22] VITALS: BP 116/78; PULSE 80
== END 2021-04-12 09:23 | disposition home or self-care (01) ==
LOC: MW.ED 07:24
DX: M94.0 Chondrocostal junction syndrome [Tietze] (principal); I10 Essential (primary) hypertension; E11.9 Type 2 diabetes mellitus without complications; Z88.0 Allergy status to penicillin; Z88.1 Allergy status to other antibiotic agents; Z91.011 Allergy to milk products; Z79.84 Long term (current) use of oral hypoglycemic drugs
CPT/HCPCS: 36415; 71045; 80053; 84484; 85025; 93005; 96374; 99285; A9270; J1885; 93010; 99284

== ENCOUNTER 2021-06-30 16:13 | Emergency (ER) | payer BC ==
[2021-06-30] MEDS ORDERED: Ondansetron 4 MG/2 ML SDV IVPUSH ONE (17:17)
[2021-06-30] MEDS ORDERED: Sodium Chloride 0.9% 1,000 ML IV ONE (17:17)
[2021-06-30] MEDS ORDERED: HYDROmorphone 1 MG/ML Syringe IVPUSH ONE (17:18)
[2021-06-30 19:11] LABS: BLOOD UREA NITROGEN,BUN 11 mg/dL (7.0-18.0); CARBON DIOXIDE,CO2 21.9 mmol/L (21.0-32.0); CHLORIDE,CL 103 mmol/L (98-107); GLUCOSE RANDOM 194 mg/dL (74-106); LIPASE 122 U/L (73-393); POTASSIUM,K 3.9 mmol/L (3.5-5.1); SODIUM,NA 137 mmol/L (136-145)
[2021-06-30] MEDS ORDERED: Iopamidol 755 MG/ML 500 ML Multipack Bottle IVPUSH STA (20:00)
[2021-06-30 21:47] VITALS: BP 110/61; PULSE 82
== END 2021-06-30 21:45 | disposition home or self-care (01) ==
LOC: MW.ED 16:13
DX: R10.31 Right lower quadrant pain (principal); E11.9 Type 2 diabetes mellitus without complications; I10 Essential (primary) hypertension; Z90.49 Acquired absence of other specified parts of digestive tract; Z20.822 Contact with and (suspected) exposure to COVID-19; Z88.0 Allergy status to penicillin; Z88.1 Allergy status to other antibiotic agents; Z91.011 Allergy to milk products
CPT/HCPCS: 36415; 74177; 80053; 81001; 83690; 84703; 85025; 87086; 87635; 96374; 96375; 99284; J1170; J2405; J7030; Q9967; U0002

== ENCOUNTER 2021-08-30 16:34 | Emergency (ER) | payer BC ==
[2021-08-30 22:47] VITALS: BP 140/97; PULSE 86
== END 2021-08-30 20:11 | disposition home or self-care (01) ==
LOC: MW.ED 16:34
DX: S92.515A Nondisplaced fracture of proximal phalanx of left lesser toe(s), initial encounter for closed fracture (principal); I10 Essential (primary) hypertension; E11.9 Type 2 diabetes mellitus without complications; Z88.1 Allergy status to other antibiotic agents; Z91.011 Allergy to milk products; Z79.84 Long term (current) use of oral hypoglycemic drugs; W23.1XXA Caught, crushed, jammed, or pinched between stationary objects, initial encounter
CPT/HCPCS: 73630-26-LT; 73630-LT; 99283

== ENCOUNTER 2021-12-16 06:38 | Day surgery (SDC) | payer BC ==
[~2021-12-16 06:38] MED LIST: Lactated Ringers 1,000 ML IV SCH; Sodium Chloride 0.9% 10 ML Syringe FLUSH PRN; Sodium Chloride 0.9% 2.5 ML Syringe FLUSH PRN; Sodium Chloride 0.9% 20 ML SDV IV PRN
[2021-12-16] MEDS ORDERED: Propofol 200 MG/20 ML SDV ONE ×2 (07:35→08:18)
[2021-12-16 09:12] VITALS: BP 116/66; PULSE 88
== END 2021-12-16 09:40 | disposition home or self-care (01) ==
LOC: MW.SDS 06:38
PROVIDERS: ATTEND Surgery
DX: K50.00 Crohn's disease of small intestine without complications (principal); K20.90 Esophagitis, unspecified without bleeding; K31.7 Polyp of stomach and duodenum; K29.50 Unspecified chronic gastritis without bleeding; I10 Essential (primary) hypertension; K21.9 Gastro-esophageal reflux disease without esophagitis; E11.9 Type 2 diabetes mellitus without complications; E66.9 Obesity, unspecified; Z68.41 Body mass index [BMI] 40.0-44.9, adult; Z88.0 Allergy status to penicillin; Z88.1 Allergy status to other antibiotic agents; Z88.2 Allergy status to sulfonamides; Z91.011 Allergy to milk products; Z98.890 Other specified postprocedural states; Z90.49 Acquired absence of other specified parts of digestive tract; Z79.899 Other long term (current) drug therapy
CPT/HCPCS: 43239; 45380; 81025; 82947; J2704; J7120; 00813

== ENCOUNTER 2022-01-01 16:39 | Emergency (ER) | payer BC ==
[2022-01-01 17:38] LABS: CARBON DIOXIDE,CO2 18.4 mmol/L (21.0-32.0); POTASSIUM,K 4.7 mmol/L (3.5-5.1)
[2022-01-01] MEDS ORDERED: Sodium Chloride 0.9% 1,000 ML IV ONE (17:49)
[2022-01-01] MEDS ORDERED: Ondansetron 4 MG/2 ML SDV IVPUSH ONE (17:50)
[2022-01-01] MEDS ORDERED: HYDROmorphone 2 MG/ML Syringe IVPUSH ONE (17:51)
[2022-01-01] MEDS ORDERED: Glucagon,Human Recombinant 1 MG Vial IM PRN (18:16)
[2022-01-01] MEDS ORDERED: Insulin Regular, Human 100 Units/ML 10 ML Vial IVPUSH ONE (18:16)
[2022-01-01] MEDS ORDERED: 50% Dextrose in Water 50 ML Syringe IVPUSH PRN (18:16)
[2022-01-01] MEDS ORDERED: Azithromycin 250 MG Tab PO ONE (18:48)
[2022-01-01] MEDS ORDERED: cefTRIAXone 1 GM in Sodium Chloride 0.9% 50 ML IV ONE (18:50)
[2022-01-01 20:28] LABS: C. TRACHOMATIS BY PCR NOT DETECTED; N. GONORRHOEAE BY PCR NOT DETECTED
[2022-01-01 20:57] VITALS: BP 136/79; PULSE 89
== END 2022-01-01 20:55 | disposition home or self-care (01) ==
LOC: MW.ED 16:39
DX: N73.9 Female pelvic inflammatory disease, unspecified (principal); E11.65 Type 2 diabetes mellitus with hyperglycemia; I10 Essential (primary) hypertension; K21.9 Gastro-esophageal reflux disease without esophagitis; E66.9 Obesity, unspecified; Z88.1 Allergy status to other antibiotic agents; Z88.0 Allergy status to penicillin; Z79.84 Long term (current) use of oral hypoglycemic drugs; Z79.899 Other long term (current) drug therapy; Z68.42 Body mass index [BMI] 45.0-49.9, adult
CPT/HCPCS: 36415; 76857; 80053; 81003; 82009; 82803; 82947; 83690; 84703; 85025; 87480; 87491; 87510; 87591; 87660; 96361; 96365; 96375; 99284; A9270; J0696; J1170; J1815; J2405; J7030

== ENCOUNTER 2022-04-17 12:03 | Emergency (ER) | payer BC ==
[2022-04-17 12:20] VITALS: PULSE 88
[2022-04-17] MEDS ORDERED: Aspirin 81 MG Tab.Chew PO STA (12:22)
[2022-04-17] MEDS ORDERED: LORazepam 0.5 MG Tab PO STA (12:22)
[2022-04-17 13:02] LABS: BLOOD UREA NITROGEN,BUN 10 mg/dL (7.0-18.0); CARBON DIOXIDE,CO2 18.8 mmol/L (21.0-32.0); CHLORIDE,CL 101 mmol/L (98-107); GLUCOSE RANDOM 336 mg/dL (74-106); POTASSIUM,K 4.3 mmol/L (3.5-5.1); SODIUM,NA 136 mmol/L (136-145)
[2022-04-17 13:03] LABS: ESTIMATED GFR 66 mL/min (>60)
[2022-04-17 13:03] LABS: CORONAVIRUS COVID-19 NAA NEGATIVE (NEGATIVE); INFLUENZA A NAA NEGATIVE (NEGATIVE); INFLUENZA B NAA NEGATIVE (NEGATIVE)
[2022-04-17 14:08] VITALS: BP 121/78
== END 2022-04-17 14:07 | disposition home or self-care (01) ==
LOC: MW.ED 12:03
DX: R07.89 Other chest pain (principal); F41.9 Anxiety disorder, unspecified; I10 Essential (primary) hypertension; K21.9 Gastro-esophageal reflux disease without esophagitis; E11.9 Type 2 diabetes mellitus without complications; Z76.0 Encounter for issue of repeat prescription; E66.9 Obesity, unspecified; Z68.30 Body mass index [BMI] 30.0-30.9, adult; Z79.899 Other long term (current) drug therapy; Z88.1 Allergy status to other antibiotic agents; Z88.0 Allergy status to penicillin; Z79.84 Long term (current) use of oral hypoglycemic drugs; Z20.822 Contact with and (suspected) exposure to COVID-19
CPT/HCPCS: 0240U; 36415; 71045; 80053; 83880; 84484; 85025; 93005; 99285; A9270; 93010; 99283

== ENCOUNTER 2022-05-27 18:20 | Emergency (ER) | payer BC ==
[2022-05-27] MEDS ORDERED: Lactated Ringers 1,000 ML IV SCH (19:15)
[2022-05-27 20:06] LABS: CARBON DIOXIDE,CO2 25.4 mmol/L (21.0-32.0); POTASSIUM,K 3.8 mmol/L (3.5-5.1)
[2022-05-27 21:05] VITALS: BP 120/80; PULSE 81
== END 2022-05-27 21:05 | disposition home or self-care (01) ==
LOC: MW.ED 18:20
DX: E11.65 Type 2 diabetes mellitus with hyperglycemia (principal); I10 Essential (primary) hypertension; E66.9 Obesity, unspecified; Z88.1 Allergy status to other antibiotic agents; Z91.011 Allergy to milk products; Z88.0 Allergy status to penicillin; Z79.84 Long term (current) use of oral hypoglycemic drugs; Z79.899 Other long term (current) drug therapy; Z68.30 Body mass index [BMI] 30.0-30.9, adult; Z68.41 Body mass index [BMI] 40.0-44.9, adult
CPT/HCPCS: 36415; 80053; 82009; 83735; 84703; 96360; 99285; J7120; 93010; 99284

== ENCOUNTER 2022-08-08 07:10 | Emergency (ER) | payer BC ==
[2022-08-08] MEDS ORDERED: Sodium Chloride 0.9% 10 ML Syringe FLUSH PRN (07:28)
[2022-08-08] MEDS ORDERED: Sodium Chloride 0.9% 2.5 ML Syringe FLUSH PRN (07:28)
[2022-08-08] MEDS ORDERED: Lactated Ringers 1,000 ML IV ONE (07:29)
[2022-08-08] MEDS ORDERED: Ondansetron 4 MG/2 ML SDV IVPUSH ONE (07:29)
[2022-08-08 07:52] LABS: BASOPHILS ABSOLUTE AUTO 0.1 K/uL (0.0-0.1); BASOPHILS PERCENT AUTO 0.5 % (0.0-1.5); EOSINOPHILS ABSOLUTE AUTO 0.2 K/uL (0.0-0.7); EOSINOPHILS PERCENT AUTO 1.7 % (0.0-7.0); HEMATOCRIT 40.8 % (36.0-46.0); HEMOGLOBIN 13.7 g/dL (12.0-16.0); LYMPHOCYTES ABSOLUTE AUTO 3.7 K/uL (0.6-2.4); LYMPHOCYTES PERCENT AUTO 36.2 % (16.0-40.0); MEAN CORPUSCULAR HEMOGLOBIN 30.6 pg (27.0-32.0); MEAN CORPUSCULAR HGB CONC 33.6 g/dL (31.0-37.0); MEAN CORPUSCULAR VOLUME 91.3 fL (80.0-98.0); MONOCYTES ABSOLUTE AUTO 0.8 K/uL (0.0-0.8); MONOCYTES PERCENT AUTO 7.8 % (0.0-15.0); NEUTROPHILS ABSOLUTE AUTO 5.5 K/uL (1.4-5.7); NEUTROPHILS PERCENT AUTO 53.8 % (48.0-80.0); NRBC ABSOLUTE 0 K/uL; PLATELET COUNT,PLT 381 K/uL (150-400); RED BLOOD CELL COUNT 4.47 M/uL (4.30-5.90); WHITE BLOOD CELL COUNT,WBC 10.29 K/uL (4.0-11.0)
[2022-08-08 08:17] LABS: ALANINE AMINOTRANSFERASE,ALT 13 IU/L (14-63); ALBUMIN 3.1 g/dL (3.4-5.0); ALKALINE PHOSPHATASE 55 U/L (46-116); ASPARTATE AMNIOTRANSFERASE,AST 9 IU/L (15-37); BILIRUBIN TOTAL 0.4 mg/dL (0.2-1.0); BLOOD UREA NITROGEN,BUN 17 mg/dL (7.0-18.0); CALCIUM 8.9 mg/dL (8.5-10.1); CARBON DIOXIDE,CO2 25.2 mmol/L (21.0-32.0); CHLORIDE,CL 97 mmol/L (98-107); GLUCOSE RANDOM 191 mg/dL (74-106); POTASSIUM,K 2.8 mmol/L (3.5-5.1); PROTEIN TOTAL,TP 7.9 g/dL (6.4-8.2); SODIUM,NA 135 mmol/L (136-145); TSH ULTRASENSITIVE 2.79 uIU/mL (0.36-3.74)
[2022-08-08 08:18] LABS: A/G RATIO 0.7 (0.9-1.6); ESTIMATED GFR 73 mL/min (>60)
[2022-08-08] MEDS ORDERED: Potassium Chloride 20 MEQ Tab.ER PO ONE (08:41)
[2022-08-08] MEDS ORDERED: Magnesium Oxide 400 MG Tab PO ONE (09:34)
[2022-08-08 11:56] VITALS: BP 114/76; PULSE 78
== END 2022-08-08 12:00 | disposition home or self-care (01) ==
LOC: MW.ED 07:10
DX: R00.2 Palpitations (principal); E83.42 Hypomagnesemia; E87.6 Hypokalemia; I10 Essential (primary) hypertension; K21.9 Gastro-esophageal reflux disease without esophagitis; E11.9 Type 2 diabetes mellitus without complications; E66.9 Obesity, unspecified; Z86.16 Personal history of COVID-19; Z79.84 Long term (current) use of oral hypoglycemic drugs; Z88.1 Allergy status to other antibiotic agents; Z91.011 Allergy to milk products; Z79.899 Other long term (current) drug therapy
CPT/HCPCS: 36415; 71046; 80053; 83735; 83880; 84443; 84484; 84703; 85025; 85379; 93005; 96361; 96374; 99285; A9270; J2405; J3490; J7120; 93010; 99284

== ENCOUNTER 2022-10-03 16:27 | Emergency (ER) | payer BC ==
[2022-10-03 16:59] LABS: BASOPHILS PERCENT AUTO 0.4 % (0.0-1.5); EOSINOPHILS ABSOLUTE AUTO 0.3 K/uL (0.0-0.7); EOSINOPHILS PERCENT AUTO 2.9 % (0.0-7.0); HEMATOCRIT 38.7 % (36.0-46.0); HEMOGLOBIN 12.6 g/dL (12.0-16.0); LYMPHOCYTES ABSOLUTE AUTO 4.2 K/uL (0.6-2.4); LYMPHOCYTES PERCENT AUTO 39.4 % (16.0-40.0); MEAN CORPUSCULAR HEMOGLOBIN 30.7 pg (27.0-32.0); MEAN CORPUSCULAR HGB CONC 32.6 g/dL (31.0-37.0); MEAN CORPUSCULAR VOLUME 94.2 fL (80.0-98.0); MONOCYTES ABSOLUTE AUTO 0.8 K/uL (0.0-0.8); MONOCYTES PERCENT AUTO 7.3 % (0.0-15.0); NEUTROPHILS ABSOLUTE AUTO 5.3 K/uL (1.4-5.7); NRBC ABSOLUTE 0 K/uL; PLATELET COUNT,PLT 404 K/uL (150-400); RED BLOOD CELL COUNT 4.11 M/uL (4.30-5.90); WHITE BLOOD CELL COUNT,WBC 10.65 K/uL (4.0-11.0)
[2022-10-03 17:29] LABS: A/G RATIO 0.6 (0.9-1.6); ALANINE AMINOTRANSFERASE,ALT 10 IU/L (14-63); ALBUMIN 2.6 g/dL (3.4-5.0); ALKALINE PHOSPHATASE 66 U/L (46-116); ASPARTATE AMNIOTRANSFERASE,AST 9 IU/L (15-37); BILIRUBIN TOTAL 0.2 mg/dL (0.2-1.0); BLOOD UREA NITROGEN,BUN 14 mg/dL (7.0-18.0); CALCIUM 8.6 mg/dL (8.5-10.1); CARBON DIOXIDE,CO2 23.7 mmol/L (21.0-32.0); CHLORIDE,CL 102 mmol/L (98-107); GLUCOSE RANDOM 284 mg/dL (74-106); POTASSIUM,K 4.4 mmol/L (3.5-5.1); PROTEIN TOTAL,TP 7.3 g/dL (6.4-8.2); SODIUM,NA 136 mmol/L (136-145); TSH ULTRASENSITIVE 3.69 uIU/mL (0.36-3.74)
[2022-10-03 17:37] LABS: ESTIMATED GFR 73 mL/min (>60)
[2022-10-03 18:02] LABS: HEMOGLOBIN A1C 8.3 %
[2022-10-03 19:12] VITALS: BP 130/82; PULSE 85
== END 2022-10-03 18:43 | disposition home or self-care (01) ==
LOC: MW.ED 16:27
DX: R07.9 Chest pain, unspecified (principal); E11.9 Type 2 diabetes mellitus without complications; I10 Essential (primary) hypertension; K21.9 Gastro-esophageal reflux disease without esophagitis; Z88.1 Allergy status to other antibiotic agents; Z91.011 Allergy to milk products; Z79.899 Other long term (current) drug therapy; Z79.84 Long term (current) use of oral hypoglycemic drugs; Z86.16 Personal history of COVID-19
CPT/HCPCS: 36415; 71045; 71045-26; 80053; 83036; 83735; 84443; 84484; 85025; 93005; 93010; 99283; 99285

== ENCOUNTER 2023-04-12 19:54 | Emergency (ER) | payer BC ==
[2023-04-12] MEDS: Sodium Chloride 0.9% 1,000 ML IV ONE (20:22)
[2023-04-12 20:38] LABS: BASE EXCESS VENOUS 0.7 (-2.0-3.0); HEMATOCRIT 38.7 % (37.0-47.0); HEMOGLOBIN 12.6 g/dL (12.0-16.0); MEAN CORPUSCULAR HEMOGLOBIN 29.2 pg (28.0-32.0); MEAN CORPUSCULAR HGB CONC 32.6 g/dL (32.0-36.0); MEAN CORPUSCULAR VOLUME 89.6 fL (83.0-99.0); MEAN PLATELET VOLUME 8.5 fL (9.4-12.3); PH,VENOUS 7.41 (7.31-7.41); PLATELET COUNT,PLT 421 K/uL (150-400); RED BLOOD CELL COUNT 4.32 M/uL (4.10-5.30); WHITE BLOOD CELL COUNT,WBC 15.75 K/uL (3.9-11.3)
[2023-04-12 21:17] LABS: CORONAVIRUS COVID-19 NAA NEGATIVE (NEGATIVE); INFLUENZA A NAA NEGATIVE (NEGATIVE); INFLUENZA B NAA NEGATIVE (NEGATIVE); RESPIRATORY SYNCYTIAL VIR NAA NEGATIVE (NEGATIVE)
[2023-04-12 21:20] LABS: EOSINOPHILS ABSOLUTE MAN 0.32 K/uL (0.00-0.45); EOSINOPHILS PERCENT MAN 2 % (0-6); LYMPHOCYTES ABSOLUTE MAN 5.36 K/uL (1.00-4.80); LYMPHOCYTES PERCENT MAN 34 % (24-44); MONOCYTES ABSOLUTE MAN 2.05 K/uL (0.00-0.80); MONOCYTES PERCENT MAN 13 % (0-8); SEG NEUTROPHILS ABSOLUTE MAN 8.03 K/uL (1.80-7.70); SEG NEUTROPHILS PERCENT MAN 51 % (41-71)
[2023-04-12 21:45] LABS: ALBUMIN 3.1 g/dL (3.4-5.0); BILIRUBIN TOTAL 0.6 mg/dL (0.2-1.0); CALCIUM 8.8 mg/dL (8.5-10.1); CARBON DIOXIDE,CO2 23.2 mmol/L (21.0-32.0); CREATININE 0.9 mg/dL (0.6-1.0); EST CRCL DRUG DOSING (CG) 59.68 mL/min; POTASSIUM,K 4.2 mmol/L (3.5-5.1); PROTEIN TOTAL,TP 7.9 g/dL (6.4-8.2)
[2023-04-12 21:46] LABS: A/G RATIO 0.7 (0.9-1.6)
[2023-04-12 23:03] LABS: APPEARANCE,URINE SLT CLOUDY; BILIRUBIN,URINE NEGATIVE (NEGATIVE); COLOR,URINE YELLOW; GLUCOSE,URINE >=1000 mg/dL (NEGATIVE); KETONES,URINE NEGATIVE (NEGATIVE); LEUKOCYTE ESTERASE,URINE TRACE (NEGATIVE); NITRITE,URINE POSITIVE (NEGATIVE); OCCULT BLOOD,URINE TRACE-INTACT (NEGATIVE); PROTEIN,URINE NEGATIVE (NEGATIVE); UROBILINOGEN,URINE 0.2 EU/dL (<2.0)
[2023-04-12 23:14] LABS: BACTERIA,URINE 1+ (NEGATIVE); EPITHELIAL CELLS,URINE MODERATE (NONE-FEW)
[2023-04-13] MEDS: Nitrofurantoin Monohydrate/Macrocrystalline 100 MG Cap PO ONE (00:16)
[2023-04-13 00:20] VITALS: BP 136/84; PULSE 85
== END 2023-04-13 00:19 | disposition home or self-care (01) ==
LOC: MW.ED 19:54
DX: E11.649 Type 2 diabetes mellitus with hypoglycemia without coma (principal); N30.00 Acute cystitis without hematuria; I10 Essential (primary) hypertension; K21.9 Gastro-esophageal reflux disease without esophagitis; Z86.16 Personal history of COVID-19; Z79.84 Long term (current) use of oral hypoglycemic drugs; Z79.899 Other long term (current) drug therapy; Z88.2 Allergy status to sulfonamides; Z88.1 Allergy status to other antibiotic agents; Z91.011 Allergy to milk products
CPT/HCPCS: 0241U; 36415; 71045; 80053; 81001; 81025; 82009; 82803; 82947; 85025; 87086; 96360; 99285; A9270; J7030; 99283

== ENCOUNTER 2023-05-21 16:15 | Emergency (ER) | payer BC ==
[2023-05-21 17:15] LABS: APPEARANCE,URINE CLOUDY; BILIRUBIN,URINE NEGATIVE (NEGATIVE); COLOR,URINE YELLOW; GLUCOSE,URINE >=1000 mg/dL (NEGATIVE); KETONES,URINE NEGATIVE (NEGATIVE); LEUKOCYTE ESTERASE,URINE TRACE (NEGATIVE); NITRITE,URINE NEGATIVE (NEGATIVE); OCCULT BLOOD,URINE SMALL (NEGATIVE); PH,URINE 5.5 (5.0-8.0); PROTEIN,URINE NEGATIVE (NEGATIVE); UROBILINOGEN,URINE 0.2 EU/dL (<2.0)
[2023-05-21 17:29] LABS: AMORPHOUS SEDIMENT,URINE MANY (NEGATIVE); BACTERIA,URINE 3+ (NEGATIVE); EPITHELIAL CELLS,URINE MANY (NONE-FEW); MUCUS,URINE MODERATE (NONE-MOD); RBC,URINE 0-3 (0-2/HPF)
[2023-05-21 18:03] LABS: CANDIDA DNA PROBE NEGATIVE (NEGATIVE); GARDNERELLA DNA PROBE NEGATIVE (NEGATIVE); TRICHOMONAS DNA PROBE NEGATIVE (NEGATIVE)
[2023-05-21 18:21] VITALS: BP 136/72; PULSE 84
[2023-05-21] MEDS: Cefdinir 300 MG Cap PO STA (18:22)
== END 2023-05-21 18:21 | disposition home or self-care (01) ==
LOC: MW.ED 16:15
DX: N39.0 Urinary tract infection, site not specified (principal); E11.9 Type 2 diabetes mellitus without complications; Z88.1 Allergy status to other antibiotic agents; Z91.011 Allergy to milk products; Z88.0 Allergy status to penicillin; Z75.8 Other problems related to medical facilities and other health care; Z88.2 Allergy status to sulfonamides; Z79.84 Long term (current) use of oral hypoglycemic drugs; Z90.49 Acquired absence of other specified parts of digestive tract; Z79.899 Other long term (current) drug therapy
CPT/HCPCS: 81001; 81025; 87086; 87480; 87510; 87660; 99283; A9270

== ENCOUNTER 2023-06-14 15:00 | Emergency (ER) | payer BC ==
[2023-06-14] MEDS: Sodium Chloride 0.9% 1,000 ML IV ONE (16:40)
[2023-06-14 17:20] LABS: HEMATOCRIT 39.1 % (37.0-47.0); HEMOGLOBIN 12.8 g/dL (12.0-16.0); MEAN CORPUSCULAR HEMOGLOBIN 28.4 pg (28.0-32.0); MEAN CORPUSCULAR HGB CONC 32.7 g/dL (32.0-36.0); MEAN CORPUSCULAR VOLUME 86.9 fL (83.0-99.0); MEAN PLATELET VOLUME 9.1 fL (9.4-12.3); PLATELET COUNT,PLT 380 K/uL (150-400); WHITE BLOOD CELL COUNT,WBC 12.37 K/uL (3.9-11.3)
[2023-06-14 17:29] LABS: A/G RATIO 0.7 (0.9-1.6); ALBUMIN 3.2 g/dL (3.4-5.0); BILIRUBIN TOTAL 0.3 mg/dL (0.2-1.0); CALCIUM 9.7 mg/dL (8.5-10.1); CARBON DIOXIDE,CO2 22.5 mmol/L (21.0-32.0); CREATININE 1.1 mg/dL (0.6-1.0); EST CRCL DRUG DOSING (CG) 48.83 mL/min; PROTEIN TOTAL,TP 7.9 g/dL (6.4-8.2)
[2023-06-14 17:32] LABS: EOSINOPHILS ABSOLUTE MAN 0.25 K/uL (0.00-0.45); EOSINOPHILS PERCENT MAN 2 % (0-6); LYMPHOCYTES ABSOLUTE MAN 4.58 K/uL (1.00-4.80); LYMPHOCYTES PERCENT MAN 37 % (24-44); MONOCYTES ABSOLUTE MAN 0.99 K/uL (0.00-0.80); MONOCYTES PERCENT MAN 8 % (0-8); SEG NEUTROPHILS ABSOLUTE MAN 6.56 K/uL (1.80-7.70); SEG NEUTROPHILS PERCENT MAN 53 % (41-71)
[2023-06-14 17:37] LABS: TSH ULTRASENSITIVE 4.01 uIU/mL (0.36-3.74)
[2023-06-14 17:54] VITALS: BP 122/50; PULSE 85
== END 2023-06-14 17:55 | disposition home or self-care (01) ==
LOC: MW.ED 15:00
DX: R00.2 Palpitations (principal); E11.9 Type 2 diabetes mellitus without complications; Z75.8 Other problems related to medical facilities and other health care; Z91.011 Allergy to milk products; Z88.2 Allergy status to sulfonamides; Z88.0 Allergy status to penicillin; Z88.1 Allergy status to other antibiotic agents; Z79.84 Long term (current) use of oral hypoglycemic drugs; Z79.899 Other long term (current) drug therapy; Z90.49 Acquired absence of other specified parts of digestive tract
CPT/HCPCS: 36415; 71045; 80053; 84443; 84484; 85025; 96360; 99285; J7030; 93005

== ENCOUNTER 2023-07-29 09:05 | Emergency (ER) | payer BC ==
[2023-07-29 09:50] LABS: BASOPHILS ABSOLUTE AUTO 0.04 K/uL (0.00-0.20); BASOPHILS PERCENT AUTO 0.4 % (0.0-1.0); EOSINOPHILS ABSOLUTE AUTO 0.19 K/uL (0.00-0.45); EOSINOPHILS PERCENT AUTO 1.9 % (0.0-6.0); HEMOGLOBIN 12.8 g/dL (12.0-16.0); IMMATURE GRAN ABSOLUTE AUTO 0.03 K/uL (0.00-0.05); IMMATURE GRAN PERCENT AUTO 0.3 % (0.0-0.4); LYMPHOCYTES ABSOLUTE AUTO 2.53 K/uL (1.00-4.80); LYMPHOCYTES PERCENT AUTO 25.6 % (24.0-44.0); MEAN CORPUSCULAR HEMOGLOBIN 29.4 pg (28.0-32.0); MEAN CORPUSCULAR HGB CONC 32.8 g/dL (32.0-36.0); MEAN CORPUSCULAR VOLUME 89.7 fL (83.0-99.0); MONOCYTES ABSOLUTE AUTO 0.63 K/uL (0.00-0.80); MONOCYTES PERCENT AUTO 6.4 % (0.0-8.0); NEUTROPHILS ABSOLUTE AUTO 6.45 K/uL (1.80-7.70); NEUTROPHILS PERCENT AUTO 65.4 % (41.0-71.0); PLATELET COUNT,PLT 358 K/uL (150-400); RED BLOOD CELL COUNT 4.35 M/uL (4.10-5.30); WHITE BLOOD CELL COUNT,WBC 9.87 K/uL (3.9-11.3)
[2023-07-29] MEDS: Insulin Regular, Human 100 Units/ML 10 ML Vial IVPUSH ONE ×2 (09:53→11:16)
[2023-07-29 09:57] LABS: PH,VENOUS 7.3 (7.31-7.41)
[2023-07-29] MEDS: Sodium Chloride 0.9% 1,000 ML IV ONE ×2 (10:01→11:30)
[2023-07-29] MEDS: Sodium Chloride 0.9% 10 ML Syringe FLUSH PRN (10:01)
[2023-07-29] MEDS: Sodium Chloride 0.9% 2.5 ML Syringe FLUSH PRN (10:01)
[2023-07-29 10:28] LABS: A/G RATIO 0.6 (0.9-1.6); ALANINE AMINOTRANSFERASE,ALT 14 IU/L (14-63); ALBUMIN 2.9 g/dL (3.4-5.0); ALKALINE PHOSPHATASE 69 U/L (46-116); ASPARTATE AMNIOTRANSFERASE,AST 9 IU/L (15-37); BILIRUBIN TOTAL 0.3 mg/dL (0.2-1.0); BLOOD UREA NITROGEN,BUN 15 mg/dL (7.0-18.0); CALCIUM 9.1 mg/dL (8.5-10.1); CARBON DIOXIDE,CO2 23.3 mmol/L (21.0-32.0); CHLORIDE,CL 99 mmol/L (98-107); CREATININE 1.1 mg/dL (0.6-1.0); EST CRCL DRUG DOSING (CG) 48.83 mL/min; ETHANOL BLOOD MEDICAL <3 mg/dL; GLUCOSE RANDOM 402 mg/dL (74-106); POTASSIUM,K 4.9 mmol/L (3.5-5.1); PROTEIN TOTAL,TP 7.6 g/dL (6.4-8.2); SODIUM,NA 134 mmol/L (136-145)
[2023-07-29 10:31] LABS: ESTIMATED GFR 65 mL/min (>60)
[2023-07-29] MEDS ORDERED: 50% Dextrose in Water 50 ML Syringe IVPUSH PRN (11:07)
[2023-07-29] MEDS ORDERED: Glucagon,Human Recombinant 1 MG Vial IM PRN (11:07)
[2023-07-29 11:46] LABS: APPEARANCE,URINE SLT CLOUDY; BILIRUBIN,URINE NEGATIVE (NEGATIVE); COLOR,URINE YELLOW; GLUCOSE,URINE >=1000 mg/dL (NEGATIVE); KETONES,URINE NEGATIVE (NEGATIVE); LEUKOCYTE ESTERASE,URINE TRACE (NEGATIVE); NITRITE,URINE NEGATIVE (NEGATIVE); OCCULT BLOOD,URINE NEGATIVE (NEGATIVE); PROTEIN,URINE NEGATIVE (NEGATIVE); UROBILINOGEN,URINE 0.2 EU/dL (<2.0)
[2023-07-29 11:55] LABS: AMPHETAMINES SCREEN, URINE NEGATIVE (CUTOFF=500); BARBITURATE SCREEN,URINE NEGATIVE (CUTOFF=200); BENZODIAZEPINES SCREEN,URINE NEGATIVE (CUTOFF=150); BUPRENORPHINE SCREEN,URINE NEGATIVE (CUTOFF=10); METHADONE SCREEN, URINE NEGATIVE (CUTOFF=200); METHAMPHETAMINES SCREEN, URINE NEGATIVE (CUTOFF=500); OXYCODONE SCREEN,URINE NEGATIVE (CUT0FF=100); PCP SCREEN,URINE NEGATIVE (CUTOFF=25); THC SCREEN,URINE 20 NG/ML NEGATIVE (CUTOFF=50)
[2023-07-29 12:01] LABS: BACTERIA,URINE MANY (NEGATIVE); EPITHELIAL CELLS,URINE MANY (NONE-FEW)
[2023-07-29 12:43] LABS: PH,VENOUS 7.35 (7.31-7.41)
[2023-07-29 13:34] LABS: CALCIUM 8.6 mg/dL (8.5-10.1); CARBON DIOXIDE,CO2 25.7 mmol/L (21.0-32.0); CREATININE 0.9 mg/dL (0.6-1.0); EST CRCL DRUG DOSING (CG) 59.68 mL/min
[2023-07-29] MEDS: Acetaminophen 500 MG Tab PO ONE (13:53)
[2023-07-29 13:57] VITALS: BP 115/69; PULSE 91
== END 2023-07-29 13:57 | disposition home or self-care (01) ==
LOC: MW.ED 09:05
DX: E11.65 Type 2 diabetes mellitus with hyperglycemia (principal); Z88.1 Allergy status to other antibiotic agents; Z91.011 Allergy to milk products; Z88.0 Allergy status to penicillin; Z88.2 Allergy status to sulfonamides; Z79.84 Long term (current) use of oral hypoglycemic drugs; Z79.890 Hormone replacement therapy; Z79.899 Other long term (current) drug therapy; Z90.49 Acquired absence of other specified parts of digestive tract
CPT/HCPCS: 36415; 80048; 80053; 80305; 80307; 81001; 81025; 82009; 82803; 82947; 85025; 96360; 96361; 99284; A9270; J3490; J7030; J1815-GY

== ENCOUNTER 2023-08-29 00:57 | Emergency (ER) | payer BC ==
[2023-08-29] MEDS: Ketorolac 30 MG/ML SDV IVPUSH ONE (01:21)
[2023-08-29] MEDS: Sodium Chloride 0.9% 2.5 ML Syringe FLUSH PRN (01:22)
[2023-08-29] MEDS: Sodium Chloride 0.9% 10 ML Syringe FLUSH PRN (01:22)
[2023-08-29 01:23] LABS: MEAN CORPUSCULAR HEMOGLOBIN 29.6 pg (28.0-32.0); MEAN CORPUSCULAR HGB CONC 33.3 g/dL (32.0-36.0); MEAN CORPUSCULAR VOLUME 88.7 fL (83.0-99.0); PLATELET COUNT,PLT 333 K/uL (150-400); RED BLOOD CELL COUNT 4.06 M/uL (4.10-5.30); WHITE BLOOD CELL COUNT,WBC 11.49 K/uL (3.9-11.3)
[2023-08-29 01:34] LABS: D-DIMER QUANTITATIVE 0.26 mg/L FEU (0.00-0.50); INR 0.93 (0.86-1.11)
[2023-08-29 01:38] LABS: A/G RATIO 0.7 (0.9-1.6); ALANINE AMINOTRANSFERASE,ALT 13 IU/L (14-63); ALKALINE PHOSPHATASE 59 U/L (46-116); ASPARTATE AMNIOTRANSFERASE,AST 9 IU/L (15-37); BILIRUBIN TOTAL 0.2 mg/dL (0.2-1.0); BLOOD UREA NITROGEN,BUN 20 mg/dL (7.0-18.0); CALCIUM 8.9 mg/dL (8.5-10.1); CARBON DIOXIDE,CO2 19.5 mmol/L (21.0-32.0); CHLORIDE,CL 101 mmol/L (98-107); CREATININE 1.1 mg/dL (0.6-1.0); EST CRCL DRUG DOSING (CG) 48.83 mL/min; GLUCOSE RANDOM 378 mg/dL (74-106); LIPASE 80 U/L (16-77); POTASSIUM,K 4.2 mmol/L (3.5-5.1); PROTEIN TOTAL,TP 7.4 g/dL (6.4-8.2); SODIUM,NA 134 mmol/L (136-145)
[2023-08-29 01:47] LABS: ESTIMATED GFR 65 mL/min (>60)
[2023-08-29] MEDS: Sodium Chloride 0.9% 1,000 ML IV ONE (02:00)
[2023-08-29 02:11] LABS: SEG NEUTROPHILS ABSOLUTE MAN 6.09 K/uL (1.80-7.70); SEG NEUTROPHILS PERCENT MAN 53 % (41-71)
[2023-08-29 02:12] LABS: EOSINOPHILS ABSOLUTE MAN 0.23 K/uL (0.00-0.45); EOSINOPHILS PERCENT MAN 2 % (0-6); LYMPHOCYTES ABSOLUTE MAN 4.37 K/uL (1.00-4.80); LYMPHOCYTES PERCENT MAN 38 % (24-44); MONOCYTES PERCENT MAN 7 % (0-8)
[2023-08-29 03:17] LABS: BASE EXCESS VENOUS -3.2 (-2.0-3.0); PH,VENOUS 7.36 (7.31-7.41)
[2023-08-29 03:43] LABS: CALCIUM 8.3 mg/dL (8.5-10.1); CARBON DIOXIDE,CO2 21.4 mmol/L (21.0-32.0); EST CRCL DRUG DOSING (CG) 53.71 mL/min; POTASSIUM,K 4.2 mmol/L (3.5-5.1)
[2023-08-29 04:52] VITALS: BP 103/55; PULSE 80
== END 2023-08-29 04:52 | disposition home or self-care (01) ==
LOC: MW.ED 00:57
DX: R07.9 Chest pain, unspecified (principal); I10 Essential (primary) hypertension; E78.00 Pure hypercholesterolemia, unspecified; E11.9 Type 2 diabetes mellitus without complications; E03.9 Hypothyroidism, unspecified; Z88.1 Allergy status to other antibiotic agents; Z91.011 Allergy to milk products; Z88.0 Allergy status to penicillin; Z88.2 Allergy status to sulfonamides; Z88.8 Allergy status to other drugs, medicaments and biological substances; Z79.84 Long term (current) use of oral hypoglycemic drugs; Z79.899 Other long term (current) drug therapy; Z90.49 Acquired absence of other specified parts of digestive tract
CPT/HCPCS: 36415; 71045; 80048; 80053; 82803; 83690; 84484; 85025; 85379; 85610; 93005; 96374; 99285; J1885; J3490; J7030

== ENCOUNTER 2024-03-18 12:55 | Emergency (ER) | payer BC ==
[2024-03-18 15:21] VITALS: BP 128/77; PULSE 72
== END 2024-03-18 15:21 | disposition home or self-care (01) ==
LOC: MW.ED 12:55
DX: J18.9 Pneumonia, unspecified organism (principal); I10 Essential (primary) hypertension; E11.9 Type 2 diabetes mellitus without complications; E03.9 Hypothyroidism, unspecified; E66.9 Obesity, unspecified; Z86.16 Personal history of COVID-19; Z90.49 Acquired absence of other specified parts of digestive tract; Z79.84 Long term (current) use of oral hypoglycemic drugs; Z79.890 Hormone replacement therapy; Z79.4 Long term (current) use of insulin; Z79.899 Other long term (current) drug therapy; Z88.1 Allergy status to other antibiotic agents; Z88.0 Allergy status to penicillin; Z88.2 Allergy status to sulfonamides; Z91.011 Allergy to milk products; Z75.8 Other problems related to medical facilities and other health care; Z68.42 Body mass index [BMI] 45.0-49.9, adult
CPT/HCPCS: 71046; 71046-26; 99284

== ENCOUNTER 2024-06-12 13:57 | Emergency (ER) | payer BC ==
[2024-06-12] MEDS ORDERED: Glucagon,Human Recombinant 1 MG Vial IM PRN (14:18)
[2024-06-12] MEDS ORDERED: 50% Dextrose in Water 50 ML Syringe IVPUSH PRN (14:18)
[2024-06-12] MEDS: Sodium Chloride 0.9% 1,000 ML IV ONE ×2 (14:27→15:18)
[2024-06-12] MEDS: Ondansetron 4 MG/2 ML SDV IVPUSH ONE (14:28)
[2024-06-12] MEDS: Insulin Regular, Human 100 Units/ML 10 ML Vial IVPUSH ONE (14:28)
[2024-06-12 14:30] LABS: HEMATOCRIT 43.5 % (37.0-47.0); HEMOGLOBIN 14.2 g/dL (12.0-16.0); MEAN CORPUSCULAR HGB CONC 32.6 g/dL (32.0-36.0); MEAN PLATELET VOLUME 9.3 fL (9.4-12.3); PLATELET COUNT,PLT 390 K/uL (150-400); RED BLOOD CELL COUNT 4.73 M/uL (4.10-5.30); WHITE BLOOD CELL COUNT,WBC 20.99 K/uL (3.9-11.3)
[2024-06-12 14:57] LABS: A/G RATIO 0.8 (0.9-1.6); ALBUMIN 3.8 g/dL (3.4-5.0); BILIRUBIN TOTAL 0.4 mg/dL (0.2-1.0); CALCIUM 9.5 mg/dL (8.5-10.1); CARBON DIOXIDE,CO2 21.7 mmol/L (21.0-32.0); CREATININE 1.3 mg/dL (0.6-1.0); EST CRCL DRUG DOSING (CG) 40.91 mL/min; MAGNESIUM 2.1 mg/dL (1.8-2.4); POTASSIUM,K 4.3 mmol/L (3.5-5.1); PROTEIN TOTAL,TP 8.6 g/dL (6.4-8.2)
[2024-06-12 15:06] LABS: HEMOGLOBIN A1C 10.7 %
[2024-06-12] MEDS ORDERED: Insulin Regular, Human 100 Units/ML 10 ML Vial IVPUSH ONE (15:11)
[2024-06-12 15:22] LABS: LYMPHOCYTES ABSOLUTE MAN 1.89 K/uL (1.00-4.80); LYMPHOCYTES PERCENT MAN 9 % (24-44); MONOCYTES ABSOLUTE MAN 0.63 K/uL (0.00-0.80); MONOCYTES PERCENT MAN 3 % (0-8); SEG NEUTROPHILS ABSOLUTE MAN 18.47 K/uL (1.80-7.70); SEG NEUTROPHILS PERCENT MAN 88 % (41-71)
[2024-06-12 15:30] LABS: APPEARANCE,URINE SLT CLOUDY; BILIRUBIN,URINE NEGATIVE (NEGATIVE); COLOR,URINE YELLOW; GLUCOSE,URINE >=1000 mg/dL (NEGATIVE); KETONES,URINE NEGATIVE (NEGATIVE); LEUKOCYTE ESTERASE,URINE NEGATIVE (NEGATIVE); NITRITE,URINE NEGATIVE (NEGATIVE); OCCULT BLOOD,URINE NEGATIVE (NEGATIVE); PH,URINE 5.5 (5.0-8.0); PROTEIN,URINE NEGATIVE (NEGATIVE); UROBILINOGEN,URINE 0.2 EU/dL (<2.0)
[2024-06-12 16:22] LABS: A/G RATIO 0.8 (0.9-1.6); ALBUMIN 3.3 g/dL (3.4-5.0); BILIRUBIN TOTAL 0.4 mg/dL (0.2-1.0); CALCIUM 8.6 mg/dL (8.5-10.1); CARBON DIOXIDE,CO2 20.7 mmol/L (21.0-32.0); EST CRCL DRUG DOSING (CG) 53.18 mL/min; POTASSIUM,K 4.3 mmol/L (3.5-5.1); PROTEIN TOTAL,TP 7.5 g/dL (6.4-8.2)
[2024-06-12 17:56] VITALS: PULSE 84
[2024-06-12 18:01] VITALS: BP 134/74
== END 2024-06-12 18:21 | disposition home or self-care (01) ==
LOC: MW.ED 13:57
DX: E11.65 Type 2 diabetes mellitus with hyperglycemia (principal); E86.0 Dehydration; I10 Essential (primary) hypertension; R63.1 Polydipsia; E78.00 Pure hypercholesterolemia, unspecified; E03.9 Hypothyroidism, unspecified; Z88.1 Allergy status to other antibiotic agents; Z91.011 Allergy to milk products; Z88.8 Allergy status to other drugs, medicaments and biological substances; Z88.2 Allergy status to sulfonamides; Z79.51 Long term (current) use of inhaled steroids; Z79.899 Other long term (current) drug therapy
CPT/HCPCS: 36415; 71045; 80053; 81003; 81025; 82947; 83036; 83735; 85025; 93005; 96361; 96374; 99285; J2405; J7030; 93010; 99284; J1815-GY

== ENCOUNTER 2024-08-25 19:08 | Emergency (ER) | payer BC ==
[2024-08-25 20:17] LABS: BASOPHILS ABSOLUTE AUTO 0.07 K/uL (0.00-0.20); BASOPHILS PERCENT AUTO 0.7 % (0.0-1.0); EOSINOPHILS ABSOLUTE AUTO 0.39 K/uL (0.00-0.45); EOSINOPHILS PERCENT AUTO 3.7 % (0.0-6.0); IMMATURE GRAN ABSOLUTE AUTO 0.02 K/uL (0.00-0.05); IMMATURE GRAN PERCENT AUTO 0.2 % (0.0-0.4); LYMPHOCYTES ABSOLUTE AUTO 3.80 K/uL (1.00-4.80); LYMPHOCYTES PERCENT AUTO 36.3 % (24.0-44.0); MEAN PLATELET VOLUME 8.7 fL (9.4-12.3); MONOCYTES ABSOLUTE AUTO 0.80 K/uL (0.00-0.80); MONOCYTES PERCENT AUTO 7.6 % (0.0-8.0); NEUTROPHILS ABSOLUTE AUTO 5.38 K/uL (1.80-7.70); NEUTROPHILS PERCENT AUTO 51.5 % (41.0-71.0); NRBC ABSOLUTE 0.00 K/uL (0.00-0.02); NRBC PERCENT 0.0 /100WBC (0.0-0.2); PLATELET COUNT,PLT 354 K/uL (150-400); RED BLOOD CELL COUNT 4.47 M/uL (4.10-5.30); WHITE BLOOD CELL COUNT,WBC 10.46 K/uL (3.9-11.3)
[2024-08-25 20:43] LABS: A/G RATIO 0.8 (0.9-1.6); ALANINE AMINOTRANSFERASE,ALT 17.0 IU/L (14-63); ASPARTATE AMNIOTRANSFERASE,AST 11.0 IU/L (15-37); BILIRUBIN TOTAL 0.3 mg/dL (0.2-1.0); BLOOD UREA NITROGEN,BUN 16.0 mg/dL (7.0-18.0); CARBON DIOXIDE,CO2 27.2 mmol/L (21.0-32.0); CHLORIDE,CL 104.0 mmol/L (98-107); CREATININE 0.9 mg/dL (0.6-1.0); EST CRCL DRUG DOSING (CG) 60.58 mL/min; GLUCOSE RANDOM 143.0 mg/dL (74-106); POTASSIUM,K 4.3 mmol/L (3.5-5.1); PROTEIN TOTAL,TP 7.3 g/dL (6.4-8.2); SODIUM,NA 141.0 mmol/L (136-145)
[2024-08-25 20:44] LABS: ESTIMATED GFR 82.0 mL/min (>60)
[2024-08-25 21:38] VITALS: BP 150/91; PULSE 64
== END 2024-08-25 21:28 | disposition home or self-care (01) ==
LOC: MW.ED 19:08
DX: R00.2 Palpitations (principal); I10 Essential (primary) hypertension; E78.00 Pure hypercholesterolemia, unspecified; E66.9 Obesity, unspecified; E11.9 Type 2 diabetes mellitus without complications; E03.9 Hypothyroidism, unspecified; Z88.0 Allergy status to penicillin; Z88.1 Allergy status to other antibiotic agents; Z88.2 Allergy status to sulfonamides; Z88.8 Allergy status to other drugs, medicaments and biological substances; Z79.84 Long term (current) use of oral hypoglycemic drugs; Z79.890 Hormone replacement therapy; Z79.899 Other long term (current) drug therapy; Z90.49 Acquired absence of other specified parts of digestive tract; Z68.42 Body mass index [BMI] 45.0-49.9, adult
CPT/HCPCS: 36415; 71045; 71045-26; 80053; 83735; 84484; 85025; 93005; 99283; 99285

== ENCOUNTER 2024-09-19 18:57 | Emergency (ER) | payer BC ==
[2024-09-19 19:59] LABS: APPEARANCE,URINE SLT CLOUDY; GLUCOSE,URINE >=1000 mg/dL (NEGATIVE); OCCULT BLOOD,URINE LARGE (NEGATIVE)
[2024-09-19 20:08] LABS: EPITHELIAL CELLS,URINE FEW (NONE-FEW)
[2024-09-19 20:14] LABS: BASOPHILS ABSOLUTE AUTO 0.07 K/uL (0.00-0.20); BASOPHILS PERCENT AUTO 0.6 % (0.0-1.0); EOSINOPHILS ABSOLUTE AUTO 0.43 K/uL (0.00-0.45); EOSINOPHILS PERCENT AUTO 4.0 % (0.0-6.0); IMMATURE GRAN ABSOLUTE AUTO 0.02 K/uL (0.00-0.05); IMMATURE GRAN PERCENT AUTO 0.2 % (0.0-0.4); LYMPHOCYTES ABSOLUTE AUTO 3.96 K/uL (1.00-4.80); LYMPHOCYTES PERCENT AUTO 36.4 % (24.0-44.0); MEAN PLATELET VOLUME 8.8 fL (9.4-12.3); MONOCYTES ABSOLUTE AUTO 0.97 K/uL (0.00-0.80); MONOCYTES PERCENT AUTO 8.9 % (0.0-8.0); NEUTROPHILS ABSOLUTE AUTO 5.43 K/uL (1.80-7.70); NEUTROPHILS PERCENT AUTO 49.9 % (41.0-71.0); NRBC ABSOLUTE 0.00 K/uL (0.00-0.02); NRBC PERCENT 0.0 /100WBC (0.0-0.2); PLATELET COUNT,PLT 363 K/uL (150-400); RED BLOOD CELL COUNT 4.57 M/uL (4.10-5.30); WHITE BLOOD CELL COUNT,WBC 10.88 K/uL (3.9-11.3)
[2024-09-19] MEDS: Ketorolac 30 MG/ML SDV IVPUSH ONE (20:18)
[2024-09-19] MEDS: Lactated Ringers 1,000 ML IV ONE (20:18)
[2024-09-19 20:20] LABS: BLOOD UREA NITROGEN,BUN 16 mg/dL (7.0-18.0); CARBON DIOXIDE,CO2 24.7 mmol/L (21.0-32.0); CHLORIDE,CL 104 mmol/L (98-107); CREATININE 1.0 mg/dL (0.6-1.0); GLUCOSE RANDOM 160 mg/dL (74-106); POTASSIUM,K 4.2 mmol/L (3.5-5.1); SODIUM,NA 139 mmol/L (136-145)
[2024-09-19 20:45] LABS: ESTIMATED GFR 73 mL/min (>60)
[2024-09-19] MEDS: Iopamidol 755 Mg/ML 100 ML Bottle IVPUSH ONE (20:54)
[2024-09-19 22:28] VITALS: BP 123/84; PULSE 79
== END 2024-09-19 22:33 | disposition home or self-care (01) ==
LOC: MW.ED 18:57
DX: R10.31 Right lower quadrant pain (principal); E78.00 Pure hypercholesterolemia, unspecified; I10 Essential (primary) hypertension; E11.9 Type 2 diabetes mellitus without complications; E03.9 Hypothyroidism, unspecified; Z88.1 Allergy status to other antibiotic agents; Z91.011 Allergy to milk products; Z88.0 Allergy status to penicillin; Z88.2 Allergy status to sulfonamides; Z79.84 Long term (current) use of oral hypoglycemic drugs; Z79.890 Hormone replacement therapy; Z79.899 Other long term (current) drug therapy; Z79.4 Long term (current) use of insulin; Z79.85 Long-term (current) use of injectable non-insulin antidiabetic drugs
CPT/HCPCS: 36415; 74177; 80048; 81001; 84702; 85025; 96374; 99284; J1885; J7120; Q9967; 99283

== ENCOUNTER 2024-09-23 16:42 | Emergency (ER) | payer BC ==
[2024-09-23] MEDS ORDERED: Sodium Chloride 0.9% 10 ML Syringe FLUSH PRN (18:21)
[2024-09-23] MEDS ORDERED: Sodium Chloride 0.9% 2.5 ML Syringe FLUSH PRN (18:21)
[2024-09-23] MEDS: Ondansetron 4 MG/2 ML SDV IVPUSH ONE (18:43)
[2024-09-23] MEDS: Ketorolac 30 MG/ML SDV IVPUSH ONE (18:43)
[2024-09-23 18:44] LABS: APPEARANCE,URINE CLEAR; GLUCOSE,URINE >=1000 mg/dL (NEGATIVE); OCCULT BLOOD,URINE NEGATIVE (NEGATIVE)
[2024-09-23 18:44] LABS: MEAN PLATELET VOLUME 8.6 fL (9.4-12.3); NRBC ABSOLUTE 0.00 K/uL (0.00-0.02); NRBC PERCENT 0.0 /100WBC (0.0-0.2); PLATELET COUNT,PLT 364 K/uL (150-400); RED BLOOD CELL COUNT 4.70 M/uL (4.10-5.30); WHITE BLOOD CELL COUNT,WBC 12.72 K/uL (3.9-11.3)
[2024-09-23 19:08] LABS: A/G RATIO 0.8 (0.9-1.6); ALANINE AMINOTRANSFERASE,ALT 18.0 IU/L (14-63); ASPARTATE AMNIOTRANSFERASE,AST 12.0 IU/L (15-37); BILIRUBIN TOTAL 0.4 mg/dL (0.2-1.0); BLOOD UREA NITROGEN,BUN 20.0 mg/dL (7.0-18.0); CARBON DIOXIDE,CO2 26.0 mmol/L (21.0-32.0); CHLORIDE,CL 105.0 mmol/L (98-107); CREATININE 1.0 mg/dL (0.6-1.0); EST CRCL DRUG DOSING (CG) 55.87 mL/min; ESTIMATED GFR 73.0 mL/min (>60); GLUCOSE RANDOM 122.0 mg/dL (74-106); POTASSIUM,K 4.0 mmol/L (3.5-5.1); PROTEIN TOTAL,TP 8.0 g/dL (6.4-8.2); SODIUM,NA 140.0 mmol/L (136-145)
[2024-09-23 19:20] LABS: BASOPHILS ABSOLUTE MAN 0.13 K/uL (0.00-0.20); BASOPHILS PERCENT MAN 1 % (0-1); EOSINOPHILS ABSOLUTE MAN 0.13 K/uL (0.00-0.45); EOSINOPHILS PERCENT MAN 1 % (0-6); LYMPHOCYTES ABSOLUTE MAN 4.45 K/uL (1.00-4.80); LYMPHOCYTES PERCENT MAN 35 % (24-44); MONOCYTES ABSOLUTE MAN 0.51 K/uL (0.00-0.80); MONOCYTES PERCENT MAN 4 % (0-8); SEG NEUTROPHILS ABSOLUTE MAN 7.50 K/uL (1.80-7.70); SEG NEUTROPHILS PERCENT MAN 59 % (41-71)
[2024-09-23] MEDS: Iopamidol 755 MG/ML 500 ML Multipack Bottle IVPUSH STA (20:16)
[2024-09-23 21:16] VITALS: BP 121/73; PULSE 62
== END 2024-09-23 21:16 | disposition home or self-care (01) ==
LOC: MW.ED 16:42
DX: R10.31 Right lower quadrant pain (principal); E78.00 Pure hypercholesterolemia, unspecified; E11.9 Type 2 diabetes mellitus without complications; I10 Essential (primary) hypertension; Z88.8 Allergy status to other drugs, medicaments and biological substances; Z91.011 Allergy to milk products; Z79.84 Long term (current) use of oral hypoglycemic drugs; Z90.49 Acquired absence of other specified parts of digestive tract
CPT/HCPCS: 36415; 74177; 80053; 81003; 81025; 83690; 85025; 96361; 96374; 96375; 99284; A9270; J1885; J2405; J7030; Q9967; 99283

== ENCOUNTER 2024-10-25 07:34 | Day surgery (SDC) | payer BC, OTHER ==
[2024-10-25] MEDS ORDERED: propofoL 500 MG/50 ML 50 ML ONE (07:54)
[2024-10-25] MEDS: Lactated Ringers 1,000 ML IV SCH (08:20)
[2024-10-25] MEDS ORDERED: Propofol 200 MG/20 ML SDV ONE ×2 (08:48→09:14)
[2024-10-25] MEDS ORDERED: fentaNYL 100 MCG/2 ML SDV ONE (08:58)
[2024-10-25 09:59] VITALS: BP 126/64; PULSE 57
== END 2024-10-25 10:10 | disposition home or self-care (01) ==
LOC: MW.SDS 07:34
PROVIDERS: ATTEND Surgery
DX: K29.50 Unspecified chronic gastritis without bleeding (principal); K31.7 Polyp of stomach and duodenum; K21.9 Gastro-esophageal reflux disease without esophagitis; K57.30 Diverticulosis of large intestine without perforation or abscess without bleeding; K64.8 Other hemorrhoids; E66.9 Obesity, unspecified; E03.9 Hypothyroidism, unspecified; E11.9 Type 2 diabetes mellitus without complications; I10 Essential (primary) hypertension; Z88.0 Allergy status to penicillin; Z88.8 Allergy status to other drugs, medicaments and biological substances; Z86.16 Personal history of COVID-19; Z91.09 Other allergy status, other than to drugs and biological substances; Z79.84 Long term (current) use of oral hypoglycemic drugs; Z79.890 Hormone replacement therapy; Z79.899 Other long term (current) drug therapy; Z68.43 Body mass index [BMI] 50.0-59.9, adult
CPT/HCPCS: 43239; 45380; 81025; J2003; J2704; J3010; J7120; 00811

== ENCOUNTER 2025-01-26 11:34 | Emergency (ER) | payer BC ==
[2025-01-26] MEDS ORDERED: Sodium Chloride 0.9% 2.5 ML Syringe FLUSH PRN (11:51)
[2025-01-26] MEDS ORDERED: Sodium Chloride 0.9% 10 ML Syringe FLUSH PRN (11:51)
[2025-01-26 12:01] LABS: BASOPHILS ABSOLUTE AUTO 0.06 K/uL (0.00-0.20); BASOPHILS PERCENT AUTO 0.5 % (0.0-1.0); EOSINOPHILS ABSOLUTE AUTO 0.31 K/uL (0.00-0.45); EOSINOPHILS PERCENT AUTO 2.8 % (0.0-6.0); IMMATURE GRAN ABSOLUTE AUTO 0.03 K/uL (0.00-0.05); IMMATURE GRAN PERCENT AUTO 0.3 % (0.0-0.4); LYMPHOCYTES ABSOLUTE AUTO 3.20 K/uL (1.00-4.80); LYMPHOCYTES PERCENT AUTO 28.9 % (24.0-44.0); MEAN PLATELET VOLUME 9.0 fL (9.4-12.3); MONOCYTES ABSOLUTE AUTO 0.83 K/uL (0.00-0.80); MONOCYTES PERCENT AUTO 7.5 % (0.0-8.0); NEUTROPHILS ABSOLUTE AUTO 6.66 K/uL (1.80-7.70); NEUTROPHILS PERCENT AUTO 60.0 % (41.0-71.0); NRBC ABSOLUTE 0.00 K/uL (0.00-0.02); NRBC PERCENT 0.0 /100WBC (0.0-0.2); PLATELET COUNT,PLT 308 K/uL (150-400); RED BLOOD CELL COUNT 4.78 M/uL (4.10-5.30); WHITE BLOOD CELL COUNT,WBC 11.09 K/uL (3.9-11.3)
[2025-01-26 12:04] LABS: GLUCOSE,URINE >=1000 mg/dL (NEGATIVE); OCCULT BLOOD,URINE TRACE-INTACT (NEGATIVE)
[2025-01-26 12:05] LABS: APPEARANCE,URINE HAZY
[2025-01-26 12:15] LABS: EPITHELIAL CELLS,URINE FEW (NONE-FEW)
[2025-01-26 12:17] LABS: BLOOD UREA NITROGEN,BUN 17.0 mg/dL (7.0-18.0); CARBON DIOXIDE,CO2 22.1 mmol/L (21.0-32.0); CHLORIDE,CL 104.0 mmol/L (98-107); CREATININE 1.0 mg/dL (0.6-1.0); EST CRCL DRUG DOSING (CG) 53.18 mL/min; GLUCOSE RANDOM 220.0 mg/dL (74-106); POTASSIUM,K 3.8 mmol/L (3.5-5.1); SODIUM,NA 138.0 mmol/L (136-145)
[2025-01-26 12:19] LABS: ESTIMATED GFR 73.0 mL/min (>60)
[2025-01-26 13:03] VITALS: BP 167/86; PULSE 63
== END 2025-01-26 13:15 | disposition home or self-care (01) ==
LOC: MW.ED 11:34
DX: E11.65 Type 2 diabetes mellitus with hyperglycemia (principal); I10 Essential (primary) hypertension; K21.9 Gastro-esophageal reflux disease without esophagitis; E03.9 Hypothyroidism, unspecified; E66.9 Obesity, unspecified; Z90.49 Acquired absence of other specified parts of digestive tract; Z88.0 Allergy status to penicillin; Z88.8 Allergy status to other drugs, medicaments and biological substances; Z91.0110 Allergy to milk products, unspecified; Z91.048 Other nonmedicinal substance allergy status; Z79.84 Long term (current) use of oral hypoglycemic drugs; Z79.4 Long term (current) use of insulin; Z79.890 Hormone replacement therapy; Z79.899 Other long term (current) drug therapy; Z68.43 Body mass index [BMI] 50.0-59.9, adult
CPT/HCPCS: 36415; 80048; 81001; 81025; 82947; 85025; 96360; 99284; J7030; 99283